=== PATIENT | female | born 1960 | race Caucasian/White ===

== ENCOUNTER 2019-11-27 08:51 | Outpatient (CLI) | payer OTHER, SELFPAY ==
--- NOTE | ~2019-11-27 | MM_ITS ---
EXAMINATION: MM screening bandar LT w karon HISTORY: Screening mammogram TECHNIQUE: Craniocaudal and mediolateral oblique 3-D tomosynthesis images were obtained and synthetic 2-D images were generated. CAD analysis was submitted and interpreted. COMPARISON: 11/14/2018, 11/08/2017 and 12/02/2015 bilateral digital screening mammogram examinations BREAST PARENCHYMAL COMPOSITION: There are scattered areas of fibroglandular density. FINDINGS: A 9 mm low-density circumscribed mass is evident anteriorly in the inner aspect of the mid to upper inner left breast. Additional masses are not excluded. Diagnostic left mammogram and left br east ultrasound examination are recommended. IMPRESSION: One or more possible left breast masses RECOMMENDATION: Diagnostic left mammogram and left breast ultrasound examination Reviewed, dictated and finalized at location A. IMPRESSION: One or more possible left breast masses RECOMMENDATION: Diagnostic left mammogram and left breast ultrasound examinati on
[2019-11-27 09:43] LABS: Basophils Percent Auto 0.8 % (0.2-1.2); Eosinophils Absolute Auto 0.5 K/mm3 (0-0.3); Eosinophils Percent Auto 9.4 % (0-4.4); Hematocrit 37.8 % (37.0-47.0); Hemoglobin 12.5 g/dL (12.0-15.0); Immature Granulocyte Absolute 0.01 K/mm3 (0.00-0.031); Immature Granulocyte Percent A 0.2 % (0-0.5); Lymphocytes Absolute Auto 1.45 K/mm3 (0.9-3.2); Lymphocytes Percent Auto 27.4 % (18.3-44.2); Mean Corpuscular HGB Conc 33.1 g/dl (32-36); Mean Corpuscular Hemoglobin 28.2 pg (26-34); Mean Corpuscular Volume 85.3 fl (80-100); Mean Platelet Volume 11.1 fl (7.4-10.4); Monocytes Absolute Auto 0.4 K/mm3 (0.1-0.6); Monocytes Percent Auto 7.4 % (2.6-8.5); Neutrophils Absolute Auto 2.9 K/mm3 (1.3-6.7); Neutrophils Percent Auto 54.8 % (45.5-73.1); Platelet Count Result 244 k/mm3 (150-375); Red Blood Count 4.43 M/mm3 (4.2-5.4); Red Cell Distribution Width 14.8 % (11.5-14.5); White Blood Count 5.3 K/mm3 (4.5-10.0)
[2019-11-27 09:55] LABS: Alanine Aminotransferase 16 U/L (4-35); Albumin Level 4.1 g/dL (3.5-5.1); Alkaline Phosphatase 103 U/L (38-126); Aspartate Amino Transferase 25 U/L (14-36); Bilirubin,Total 0.9 mg/dL (0.2-1.3); Blood Urea Nitrogen 23 mg/dL (7-17); Calcium 9.5 mg/dL (8.4-10.2); Carbon Dioxide 33 mmol/L (22-30); Chloride 104 mmol/L (98-107); Cholesterol 180 mg/dL (0-200); Estimated Glomerular Filt Rate > 60; Glucose 98 mg/dL (65-105); HDL Direct 77 mg/dL; Hemoglobin A1C 5.8 % (<5.7); Potassium 3.5 mmol/L (3.4-5.0); Sodium 138 mmol/L (137-145); Triglycerides 66 mg/dL (<150)
[2019-11-27 10:06] LABS: LDL Cholesterol Direct 75 mg/dL
[2019-11-27 10:29] LABS: Vitamin D 25 Hydroxy 29.8 ng/mL
[2019-11-29 20:45] LABS: CA 27.29 22 U/mL (<38)
== END 2019-11-27 08:52 | disposition home or self-care (01) ==
PROVIDERS: Referring Provider Internal Medicine; Visit Provider Internal Medicine Hematology & Oncology
DX: Z12.31 Encounter for screening mammogram for malignant neoplasm of breast (principal); E55.9 Vitamin D deficiency, unspecified; Z79.899 Other long term (current) drug therapy; R92.8 Other abnormal and inconclusive findings on diagnostic imaging of breast
CPT/HCPCS: 36415; 77063; 77067; 80053; 80061; 82306; 83036; 84443; 85025; 86300; 99212; G0463

== ENCOUNTER 2019-12-05 11:10 | Outpatient (CLI) | payer OTHER, SELFPAY ==
--- NOTE | ~2019-12-05 | MMUS_ITS ---
EXAMINATION: MM diagnostic mammo unilat LT, US breast LT complete HISTORY: Left breast masses seen on recent screening mammogram TECHNIQUE: Additional 3-D tomosynthesis images of the left breast were performed and synthetic 2-D im ages were generated. CAD analysis was submitted and interpreted. High resolution left breast ultrasou nd was performed. COMPARISON: 11/27/2019 FINDINGS: MAMMOGRAPHIC FINDINGS: There are multiple small masses in the periareolar location of the left breast which are partially ob scured by overlying tissue. There are benign-appearing left breast calcifications. ULTRASOUND: Left breast ultrasound: At 10:00 near the nipple there are 2 adjacent hypoechoic masses with irregular margins, the larger me asuring 5 x 5 x 4 mm with posterior acoustic attenuation. No internal vascularity. The smaller lesion measures 4.5 mm maximum dimension. There is no internal vascularity. There is posterior acoustic enh ancement. There are multiple additional mildly dilated ducts as well as simple and complicated cyst o f the left breast including an 1 cm cyst at 8:00 near the nipple. IMPRESSION: 1. Irregular shaped hypoechoic masses of the left breast at 10:00 near the nipple, largest measuring 5 mm. 2. Ultrasound-guided left breast biopsy of these masses recommended. BI-RADS category 4, suspicious findings. Reviewed, dictated and finalized at location A. IMPRESSION: 1. Irregular shaped hypoechoic masses of the left breast at 10:00 near the nipp le, largest measuring 5 mm. 2. Ultrasound-guided left breast biopsy of these masses recommended. BI-RADS category 4, suspicious findings.
== END 2019-12-05 11:11 | disposition home or self-care (01) ==
PROVIDERS: Visit Provider Internal Medicine Hematology & Oncology
DX: R92.8 Other abnormal and inconclusive findings on diagnostic imaging of breast (principal)
CPT/HCPCS: 76641; 77065

== ENCOUNTER 2020-02-19 10:14 | Outpatient (CLI) | payer OTHER, SELFPAY ==
[2020-02-19 10:58] LABS: Basophils Percent Auto 0.7 % (0.2-1.2); Eosinophils Absolute Auto 0.4 K/mm3 (0-0.3); Eosinophils Percent Auto 8.7 % (0-4.4); Hematocrit 38.8 % (37.0-47.0); Hemoglobin 12.6 g/dL (12.0-15.0); Immature Granulocyte Absolute 0.01 K/mm3 (0.00-0.031); Immature Granulocyte Percent A 0.2 % (0-0.5); Lymphocytes Absolute Auto 1.24 K/mm3 (0.9-3.2); Lymphocytes Percent Auto 28.4 % (18.3-44.2); Mean Corpuscular HGB Conc 32.5 g/dl (32-36); Mean Corpuscular Hemoglobin 28.1 pg (26-34); Mean Corpuscular Volume 86.4 fl (80-100); Mean Platelet Volume 11.1 fl (7.4-10.4); Monocytes Absolute Auto 0.4 K/mm3 (0.1-0.6); Monocytes Percent Auto 9.2 % (2.6-8.5); Neutrophils Absolute Auto 2.3 K/mm3 (1.3-6.7); Neutrophils Percent Auto 52.8 % (45.5-73.1); Platelet Count Result 242 k/mm3 (150-375); Red Blood Count 4.49 M/mm3 (4.2-5.4); Red Cell Distribution Width 15.1 % (11.5-14.5); White Blood Count 4.4 K/mm3 (4.5-10.0)
[2020-02-19 11:11] LABS: Alanine Aminotransferase 19 U/L (4-35); Albumin Level 3.8 g/dL (3.5-5.1); Alkaline Phosphatase 117 U/L (38-126); Anion Gap 3 mmol/L (8-16); Aspartate Amino Transferase 24 U/L (14-36); Bilirubin,Total 0.7 mg/dL (0.2-1.3); Blood Urea Nitrogen 22 mg/dL (7-17); Calcium 9.2 mg/dL (8.4-10.2); Carbon Dioxide 32 mmol/L (22-30); Chloride 104 mmol/L (98-107); Estimated Glomerular Filt Rate > 60; Glucose 88 mg/dL (65-105); Potassium 3.5 mmol/L (3.4-5.0); Sodium 139 mmol/L (137-145)
[2020-02-23 06:09] LABS: CA 27.29 18 U/mL (<38)
== END 2020-02-19 10:15 | disposition home or self-care (01) ==
PROVIDERS: Visit Provider Internal Medicine Hematology & Oncology
DX: C50.411 Malignant neoplasm of upper-outer quadrant of right female breast (principal); Z17.0 Estrogen receptor positive status [ER+]
CPT/HCPCS: 36415; 80053; 85025; 86300; 99212; G0463

== ENCOUNTER 2020-03-22 10:42 | Outpatient (CLI) | payer OTHER, SELFPAY ==
--- NOTE | ~2020-03-22 | XR_ITS ---
XR lumbar spine 2-3V 03/22/2020 11:16 Indication: Low back pain and radiculopathy Procedure: 3 views lumbar spine Comparison: No prior studies for comparison. Findings: There is advanced disc narrowing at L1-2, L2-3 and L3-4. There is dextroscoliosis of the georgie mbar spine. No evidence for acute fracture or traumatic malalignment. No evidence for spondylolisthes is. There are cholecystectomy clips. Sacral foramen are symmetric. There is mild multilevel facet hyp ertrophy. Impression: 1: Moderate lumbar spondylosis with dextroscoliosis. Reviewed, dictated and finalized at location A. Impression: 1: Moderate lumbar spondylosis with dextroscoliosis.
--- NOTE | ~2020-03-22 | XR_ITS ---
XR hip BI wo pelvis 03/22/2020 11:16 Indication: Bilateral hip and low back pain Procedure: 2 views of each hip Comparison: No prior studies for comparison. Findings: There is mild bilateral osteoarthritis of the hips. No acute fracture or traumatic malalign ment. No focal soft tissue abnormality. Pelvic structures are unremarkable. Impression: 1: Mild osteoarthritis of the hips. Reviewed, dictated and finalized at location A. Impression: 1: Mild osteoarthritis of the hips.
--- NOTE | ~2020-03-22 | US_ITS ---
US soft tissue head and neck 03/22/2020 11:31 Indication: Left supraclavicular fullness and swelling. History of right breast cancer. Procedure: High-resolution ultrasound of the left supraclavicular soft tissues Comparison: No prior studies for comparison. Findings: Within the area of swelling there is a small 6 mm normal-appearing lymph node. No suspiciou s masses or fluid collections. Impression: 1: Normal-appearing 6 mm lymph node in the area of left supraclavicular swelling, likely reactive. Ot herwise, unremarkable soft tissue ultrasound. Reviewed, dictated and finalized at location A. Impression: 1: Normal-appearing 6 mm lymph node in the area of left supraclavicular swellin g, likely reactive. Otherwise, unremarkable soft tissue ultrasound.
== END 2020-03-22 10:43 | disposition home or self-care (01) ==
PROVIDERS: Visit Provider Nurse Practitioner Adult Health
DX: M16.0 Bilateral primary osteoarthritis of hip (principal); R59.0 Localized enlarged lymph nodes; M47.26 Other spondylosis with radiculopathy, lumbar region; M41.86 Other forms of scoliosis, lumbar region; G89.4 Chronic pain syndrome; Z85.3 Personal history of malignant neoplasm of breast
CPT/HCPCS: 72100; 73521; 76536

== ENCOUNTER 2020-04-08 11:12 | Outpatient (CLI) | payer OTHER, SELFPAY ==
[2020-04-08 11:55] LABS: Hemoglobin A1C 5.6 % (<5.7)
[2020-04-08 12:00] LABS: Alanine Aminotransferase 18 U/L (4-35); Albumin Level 3.8 g/dL (3.5-5.1); Alkaline Phosphatase 94 U/L (38-126); Anion Gap 3 mmol/L (8-16); Aspartate Amino Transferase 25 U/L (14-36); Bilirubin,Total 1.3 mg/dL (0.2-1.3); Blood Urea Nitrogen 21 mg/dL (7-17); Calcium 9.8 mg/dL (8.4-10.2); Carbon Dioxide 34 mmol/L (22-30); Chloride 104 mmol/L (98-107); Cholesterol 179 mg/dL (0-200); Estimated Glomerular Filt Rate > 60; Glucose 94 mg/dL (65-105); HDL Direct 72 mg/dL; Potassium 3.7 mmol/L (3.4-5.0); Sodium 141 mmol/L (137-145); Triglycerides 97 mg/dL (<150)
[2020-04-08 12:11] LABS: LDL Cholesterol Direct 81 mg/dL
[2020-04-11 12:19] LABS: Homocysteine 5.8 umol/L (<10.4)
[2020-04-11 23:03] LABS: Vitamin D 1,25 (OH)2 Total 32 pg/mL (18-72); Vitamin D2 1,25 (OH)2 <8 pg/mL; Vitamin D3 1,25 (OH)2 32 pg/mL
== END 2020-04-08 11:13 | disposition home or self-care (01) ==
LOC: ANHLAB 11:14 → ANHVASCINF 11:20
PROVIDERS: Visit Provider Internal Medicine
DX: R73.09 Other abnormal glucose (principal); R79.89 Other specified abnormal findings of blood chemistry; E55.9 Vitamin D deficiency, unspecified; I10 Essential (primary) hypertension; Z79.899 Other long term (current) drug therapy
CPT/HCPCS: 36415; 80053; 80061; 82652; 83036; 83090; 99212; G0463

== ENCOUNTER 2020-04-29 14:25 | Outpatient (CLI) | payer OTHER, SELFPAY ==
--- NOTE | ~2020-04-29 | DEXA_ITS ---
Bone Density Report Name: Sonya Canseco Age: 59 Sex: Female Ethnicity: White Date of : 1960 Indication: postmenopausal; height loss; prior fracture; cancer; hysterectomy; Referring Provider: Shanda Torres Study: Bone densitometry was performed. Exam Date: April 29, 2020 Accession number: [id number] Bone Density: Region BMD T-score Z-score Classification AP Spine (L1, L4) 1.122 0.8 2.0 Normal Femoral Neck (Left) 0.783 -0.6 0.6 Normal Total Hip (Left) 0.974 0.3 1.1 Normal Total Hip Bilateral Avg 0.939 0.0 0.8 Normal Femoral Neck (Right) 0.755 -0.8 0.3 Normal Total Hip (Right) 0.903 -0.3 0.5 Normal World Health Organization criteria for BMD impression classify patients as: Normal (T-score at or above -1.0), Osteopenia (T-score between -1.0 and -2.5), or Osteoporosis (T-score at or below -2.5). 10-year Fracture Risk: FRAX not reported because: All T-scores for Spine Total, Hip Total, Femoral Neck at or above -1.0 Previous Exams: Region Exam Age BMD T-score BMD Change BMD Change Date g/cm2 vs Baseline vs Previous Total Hip(Left) 04/29/2020 59 0.974 0.3 -0.027(-2.7%)* -0.027(-2.7%)* 02/07/2018 57 1.001 0.5 Total Hip(Right) 04/29/2020 59 0.903 -0.3 -0.053(-5.6%)* -0.053(-5.6%)* 02/07/2018 57 0.957 0.1 *Denotes significance at 95% confidence level, LSC for Total Hip = 0.027 g/cm2 Clinical Information Provided by Patient: Has had a low trauma fracture Has used the following medications: Vitamin D, Calcium Has the following medical conditions: Cancer, Hysterectomy Patient maximum height was 63.5 Menopause Age: 43 No regular weight bearing exercise Does not regularly consume dairy products Drinks caffeinated beverages Onset of menses at age 13 Number of children 2 Impression: The patient has normal bone mass. The patient has risk factors, including: previous fracture. The BMD for the Total Hip(Left) decreased, changing by -2.7% since the last DXA exam. The BMD for the Total Hip(Right) decreased, changing by -5.6% since the last DXA exam. Discussion: BONE DENSITY IS ABOVE THE MINIMUM DESIRABLE LEVEL AT ALL SKELETAL SITES TESTED. This patient?s bone mineral density is above the minimum desirable level (T-score -1.0 or better) at all sites measured. The patient should follow a healthful lifestyle (good nutrition with adequate calcium and vitamin D, and appropriate weight-bearing exercise). Follow-Up: Consider repeating this study in 3 to 4 years to reassess this pa
== END 2020-04-29 14:26 | disposition home or self-care (01) ==
PROVIDERS: Visit Provider Nurse Practitioner Adult Health
DX: Z78.0 Asymptomatic menopausal state (principal); Z79.811 Long term (current) use of aromatase inhibitors
CPT/HCPCS: 77080

== ENCOUNTER 2020-06-03 10:40 | Outpatient (CLI) | payer OTHER, SELFPAY ==
[2020-06-03 11:11] LABS: Basophils Percent Auto 0.9 % (0.2-1.2); Eosinophils Absolute Auto 0.2 K/mm3 (0-0.3); Eosinophils Percent Auto 5.4 % (0-4.4); Hematocrit 40.3 % (37.0-47.0); Immature Granulocyte Absolute 0.01 K/mm3 (0.00-0.031); Immature Granulocyte Percent A 0.2 % (0-0.5); Lymphocytes Absolute Auto 1.14 K/mm3 (0.9-3.2); Lymphocytes Percent Auto 25.8 % (18.3-44.2); Mean Corpuscular HGB Conc 32.3 g/dl (32-36); Mean Corpuscular Volume 86.9 fl (80-100); Mean Platelet Volume 10.4 fl (7.4-10.4); Monocytes Absolute Auto 0.3 K/mm3 (0.1-0.6); Monocytes Percent Auto 7.7 % (2.6-8.5); Neutrophils Absolute Auto 2.7 K/mm3 (1.3-6.7); Platelet Count Result 250 k/mm3 (150-375); Red Blood Count 4.64 M/mm3 (4.2-5.4); Red Cell Distribution Width 14.6 % (11.5-14.5); White Blood Count 4.4 K/mm3 (4.5-10.0)
[2020-06-03 11:25] LABS: Alanine Aminotransferase 18 U/L (4-35); Albumin Level 3.8 g/dL (3.5-5.1); Alkaline Phosphatase 106 U/L (38-126); Anion Gap 3 mmol/L (8-16); Aspartate Amino Transferase 26 U/L (14-36); Blood Urea Nitrogen 22 mg/dL (7-17); Calcium 9.9 mg/dL (8.4-10.2); Carbon Dioxide 34 mmol/L (22-30); Chloride 102 mmol/L (98-107); Estimated Glomerular Filt Rate > 60; Glucose 91 mg/dL (65-105); Potassium 3.6 mmol/L (3.4-5.0); Sodium 139 mmol/L (137-145)
[2020-06-08 06:47] LABS: CA 27.29 23 U/mL (<38)
== END 2020-06-03 10:41 | disposition home or self-care (01) ==
PROVIDERS: Referring Provider Internal Medicine Hematology & Oncology; Visit Provider Nurse Practitioner Adult Health
DX: C50.411 Malignant neoplasm of upper-outer quadrant of right female breast (principal); Z17.0 Estrogen receptor positive status [ER+]
CPT/HCPCS: 36415; 80053; 85025; 86300; 99212; G0463

== ENCOUNTER 2020-08-19 10:47 | Outpatient (CLI) | payer OTHER, SELFPAY ==
[2020-08-19 11:20] LABS: Basophils Absolute Auto 0.1 K/mm3 (0.0-0.1); Basophils Percent Auto 1.1 % (0.2-1.2); Eosinophils Absolute Auto 0.3 K/mm3 (0-0.3); Hematocrit 39.8 % (37.0-47.0); Hemoglobin 12.6 g/dL (12.0-15.0); Immature Granulocyte Absolute 0.02 K/mm3 (0.00-0.031); Immature Granulocyte Percent A 0.4 % (0-0.5); Lymphocytes Absolute Auto 1.36 K/mm3 (0.9-3.2); Lymphocytes Percent Auto 24.8 % (18.3-44.2); Mean Corpuscular HGB Conc 31.7 g/dl (32-36); Mean Corpuscular Hemoglobin 27.1 pg (26-34); Mean Corpuscular Volume 85.6 fl (80-100); Mean Platelet Volume 10.9 fl (7.4-10.4); Monocytes Absolute Auto 0.4 K/mm3 (0.1-0.6); Neutrophils Absolute Auto 3.3 K/mm3 (1.3-6.7); Neutrophils Percent Auto 59.7 % (45.5-73.1); Platelet Count Result 280 k/mm3 (150-375); Red Blood Count 4.65 M/mm3 (4.2-5.4); Red Cell Distribution Width 14.9 % (11.5-14.5); White Blood Count 5.5 K/mm3 (4.5-10.0)
[2020-08-19 11:33] LABS: Alanine Aminotransferase 17 U/L (4-35); Albumin Level 3.9 g/dL (3.5-5.1); Alkaline Phosphatase 111 U/L (38-126); Anion Gap 1 mmol/L (8-16); Aspartate Amino Transferase 23 U/L (14-36); Bilirubin,Total 0.9 mg/dL (0.2-1.3); Blood Urea Nitrogen 28 mg/dL (7-17); Calcium 9.5 mg/dL (8.4-10.2); Carbon Dioxide 35 mmol/L (22-30); Chloride 104 mmol/L (98-107); Cholesterol 184 mg/dL (0-200); Estimated Glomerular Filt Rate > 60; Glucose 74 mg/dL (65-105); HDL Direct 85 mg/dL; Potassium 3.5 mmol/L (3.4-5.0); Sodium 140 mmol/L (137-145); Triglycerides 74 mg/dL (<150)
[2020-08-19 11:42] LABS: Hemoglobin A1C 5.6 % (<5.7)
[2020-08-19 11:44] LABS: LDL Cholesterol Direct 70 mg/dL
== END 2020-08-19 10:48 | disposition home or self-care (01) ==
PROVIDERS: Visit Provider Internal Medicine
DX: E78.5 Hyperlipidemia, unspecified (principal); I10 Essential (primary) hypertension; R73.09 Other abnormal glucose; Z51.81 Encounter for therapeutic drug level monitoring; Z79.899 Other long term (current) drug therapy
CPT/HCPCS: 36415; 80053; 80061; 83036; 84443; 85025; 99212; G0463

== ENCOUNTER 2020-12-02 10:42 | Outpatient (CLI) | payer OTHER, SELFPAY ==
--- NOTE | ~2020-12-02 | MM_ITS ---
EXAMINATION: MM screening bandar LT w karon HISTORY: Screening mammogram; status post right mastectomy in 1999 TECHNIQUE: Craniocaudal and mediolateral oblique 3-D tomosynthesis images were obtained and synthetic 2-D images were generated. CAD analysis was submitted and interpreted. COMPARISON: 12/05/2019 left diagnostic mammogram and complete left breast ultrasound examination 11/27/2019, 11/14/2018, 11/08/2017, 12/02/2015 left digital mammogram examinations left digital screening m ammogram BREAST PARENCHYMAL COMPOSITION: There are scattered areas of fibroglandular density. FINDINGS: There is a biopsy marker on the left; history of benign left breast biopsy in 2019. There is an approximately 7 mm opacity in the upper mid left breast (CC Tomosynthesis image 46/76; ML O Tomosynthesis image 46/79). Diagnostic left mammogram and left breast ultrasound examination are re commended. IMPRESSION: 1. 7 mm upper central left breast 2. Diagnostic left mammogram and left breast ultrasound examination are recommended BI-RADS Category 0: Incomplete: Needs additional imaging evaluation. Reviewed, dictated and finalized at location A. IMPRESSION: 1. 7 mm upper central left breast 2. Diagnostic left mammogram and left breast ultrasound examination are recomme nded BI-RADS Category 0: Incomplete: Needs additional imaging evaluation.
== END 2020-12-02 10:43 | disposition home or self-care (01) ==
PROVIDERS: PCP Internal Medicine; Visit Provider Internal Medicine Hematology & Oncology
DX: Z12.31 Encounter for screening mammogram for malignant neoplasm of breast (principal); R92.8 Other abnormal and inconclusive findings on diagnostic imaging of breast
CPT/HCPCS: 77063; 77067

== ENCOUNTER 2020-12-09 10:58 | Outpatient (CLI) | payer OTHER, SELFPAY ==
[2020-12-09 12:05] LABS: Basophils Absolute Auto 0.1 K/mm3 (0.0-0.1); Basophils Percent Auto 1.1 % (0.2-1.2); Eosinophils Absolute Auto 0.3 K/mm3 (0-0.3); Eosinophils Percent Auto 5.1 % (0-4.4); Hematocrit 39.4 % (37.0-47.0); Hemoglobin 12.6 g/dL (12.0-15.0); Immature Granulocyte Absolute 0.02 K/mm3 (0.00-0.031); Immature Granulocyte Percent A 0.4 % (0-0.5); Lymphocytes Absolute Auto 1.41 K/mm3 (0.9-3.2); Lymphocytes Percent Auto 24.7 % (18.3-44.2); Mean Corpuscular Hemoglobin 27.8 pg (26-34); Monocytes Absolute Auto 0.4 K/mm3 (0.1-0.6); Monocytes Percent Auto 7.5 % (2.6-8.5); Neutrophils Absolute Auto 3.5 K/mm3 (1.3-6.7); Neutrophils Percent Auto 61.2 % (45.5-73.1); Platelet Count Result 265 k/mm3 (150-375); Red Blood Count 4.53 M/mm3 (4.2-5.4); Red Cell Distribution Width 15.1 % (11.5-14.5); White Blood Count 5.7 K/mm3 (4.5-10.0)
[2020-12-09 12:20] LABS: Cholesterol 208 mg/dL (0-200); HDL Direct 82 mg/dL; Triglycerides 69 mg/dL (<150)
[2020-12-09 12:21] LABS: Alanine Aminotransferase 17 U/L (4-35); Alkaline Phosphatase 92 U/L (38-126); Anion Gap 5 mmol/L (8-16); Aspartate Amino Transferase 25 U/L (14-36); Bilirubin,Total 0.8 mg/dL (0.2-1.3); Blood Urea Nitrogen 25 mg/dL (7-17); Calcium 9.9 mg/dL (8.4-10.2); Carbon Dioxide 32 mmol/L (22-30); Chloride 104 mmol/L (98-107); Estimated Glomerular Filt Rate > 60; Glucose 88 mg/dL (65-105); Potassium 3.6 mmol/L (3.4-5.0); Sodium 141 mmol/L (137-145)
[2020-12-09 12:22] LABS: Hemoglobin A1C 5.7 % (<5.7)
[2020-12-09 12:31] LABS: LDL Cholesterol Direct 72 mg/dL
[2020-12-11 13:09] LABS: CA 15-3 15 U/mL (<32)
[2020-12-12 09:32] LABS: Vitamin D 1,25 (OH)2 Total 46 pg/mL (18-72); Vitamin D2 1,25 (OH)2 <8 pg/mL; Vitamin D3 1,25 (OH)2 46 pg/mL
== END 2020-12-09 10:59 | disposition home or self-care (01) ==
PROVIDERS: PCP Internal Medicine; Referring Provider Internal Medicine Hematology & Oncology; Visit Provider Internal Medicine
DX: C50.411 Malignant neoplasm of upper-outer quadrant of right female breast (principal); R73.03 Prediabetes; E78.5 Hyperlipidemia, unspecified; E55.9 Vitamin D deficiency, unspecified; Z17.0 Estrogen receptor positive status [ER+]
CPT/HCPCS: 36415; 80053; 80061; 82652; 83036; 85025; 86300; 99211; G0463

== ENCOUNTER 2020-12-10 09:26 | Outpatient (CLI) | payer OTHER, SELFPAY ==
--- NOTE | ~2020-12-10 | MMUS_ITS ---
EXAMINATION: MM diagnostic mammo unilat LT, US breast LT limited HISTORY: Follow-up left breast mass TECHNIQUE: Additional 3-D tomosynthesis images of the left breast were performed and synthetic 2-D im ages were generated. CAD analysis was submitted and interpreted. High resolution Limited left breast ultrasound was performed. COMPARISON: 12/02/2020 BREAST PARENCHYMAL COMPOSITION: Breast composed of scattered areas of fibroglandular density. FINDINGS: MAMMOGRAPHIC FINDINGS: There is an 8 mm mass in the periareolar location of the left breast with circumscribed margins. Ther e are scattered benign-appearing left breast calcifications. ULTRASOUND: Limited left breast ultrasound: At 6:00 near the nipple there is a 9 mm simple cyst corresponding to the mammographic abnormality. No suspicious masses to suggest malignancy. IMPRESSION: 1. No evidence for malignancy in the left breast. Benign findings. 2. Routine yearly screening mammogram and regular clinical breast examination are recommended. BI-RADS Category 2: Benign finding(s). Reviewed, dictated and finalized at location A. IMPRESSION: 1. No evidence for malignancy in the left breast. Benign findings. 2. Routine yearly screening mammogram and regular clinical breast examination a re recommended. BI-RADS Category 2: Benign finding(s).
== END 2020-12-10 09:27 | disposition home or self-care (01) ==
LOC: ANHIMG 09:28
PROVIDERS: PCP Internal Medicine; Visit Provider Internal Medicine Hematology & Oncology
DX: N60.02 Solitary cyst of left breast (principal)
CPT/HCPCS: 76642; 77065

== ENCOUNTER 2021-02-02 14:40 | Outpatient (CLI) | payer OTHER, SELFPAY ==
--- NOTE | 2021-02-02 15:03 | ECG_ITS ---
Measurements Intervals [place] Rate: 76 P: 64 NC: 155 QRS: 7 QRSD: 93 T: 8 QT: 359 QTc: 404 Interpretive Statements SINUS RHYTHM DELAYED PRECORDIAL R/S TRANSITION BORDERLINE ST-T WAVE ABNORMALITY- ANT/INF LEADS BASELINE ARTIFACT- I, II, III, AVR, AVL, AVF BORDERLINE ECG Electronically Signed On 02-02-2021 15:25:16 CDT by Chau Johnson D.O.
== END 2021-02-02 14:41 | disposition home or self-care (01) ==
PROVIDERS: PCP Internal Medicine; Visit Provider Orthopaedic Surgery
DX: E78.5 Hyperlipidemia, unspecified (principal); Z01.818 Encounter for other preprocedural examination; R94.31 Abnormal electrocardiogram [ECG] [EKG]
CPT/HCPCS: 93005

== ENCOUNTER 2021-02-05 01:10 | Day surgery (SDC) | payer OTHER, SELFPAY ==
[2021-02-02 11:28] VITALS: BMI 33.0
--- NOTE | 2021-02-04 10:24 | WPDANESEPPF ---
Anes - Initial Pre Proc Eval Procedure: Operation Date: 02/05/21 09:00 Proposed Procedures s Left Triple Arthrodesis, - Ayan Meadows MD p Achilles Lengthening, Iliac Crest Bone Marrow Aspirate - Ayan Meadows MD Date/Time: 02/04/21 10:24 Surgeon: Ayan Meadows MD Pre Op Diagnosis: left foot arthritis, left planus deformity Patient Data Age: 60 Gender: F Height: 1.55 m Weight: 79.4 kg Allergies Allergy/AdvReac Type Severity Reaction Status Date / Time Sulfa (Sulfonamide Allergy Severe Ulcers Verified 02/02/21 10:42 Antibiotics) lisinopril Allergy Intermediate Itching Verified 02/02/21 10:42 morphine AdvReac Mild Itching Verified 02/05/21 07:35 Home Medications Medication Instructions Recorded Confirmed Type anastrozole 1 mg tablet 1 mg PO DAILY 07/24/19 02/02/21 History aspirin 325 mg tablet 325 mg PO DAILY 08/26/20 02/02/21 History pwrafqh-hmpinghdh-ctpg 333 mg-133 3 tablet PO DAILY 08/26/20 02/02/21 History mg-5 mg tablet cholecalciferol (vitamin D3) 50 50 mcg PO DAILY 08/26/20 02/02/21 History mcg (2,000 unit) capsule folic acid 800 mcg tablet 0.8 mg PO DAILY 08/26/20 02/02/21 History mecobalamin (vitamin B12) 5,000 5,000 mcg PO DAILY 08/26/20 02/02/21 History mcg disintegrating tablet pantoprazole 40 mg tablet,delayed 40 mg PO QAM #90 tablet 11/13/20 02/02/21 Rx release acetaminophen 300 mg-codeine 60 mg 1 tablet PO HS tablet 12/16/20 02/02/21 History tablet ibuprofen 800 mg tablet 800 mg PO BID tablet 12/16/20 02/02/21 History pregabalin 75 mg capsule 75 mg PO BID cap 12/16/20 02/02/21 History colesevelam 625 mg tablet 1,875 mg PO BID #540 tablet 12/25/20 02/02/21 Rx scopolamine base 1 mg over 3 days 1 patch TRANSDERMAL Q3D PRN #4 ea 01/26/21 02/02/21 Rx transdermal patch Allergy Relief (loratadine) 10 mg PO DAILY 02/02/21 02/02/21 History aspirin 81 mg PO DAILY 02/02/21 02/02/21 History cyclobenzaprine 10 mg PO BID PRN 02/02/21 02/02/21 History fluticasone propionate 2 spray INTRANASAL DAILY 02/02/21 02/02/21 History hydrochlorothiazide 12.5 mg PO DAILY 02/02/21 02/02/21 History losartan 25 mg PO DAILY 02/02/21 02/02/21 History pseudoephedrine HCl [Sudafed] 30 mg PO Q4-6H PRN 02/02/21 02/02/21 History Patient hx anesthesia problems: post op nausea/vomiting Family hx anesthesia problems: none PMFSH Past Medical History Medical History Adverse effect of anesthesia nausea Arthritis Arthritis of foot, left, degenerative Benign essential hypertension Blockage of subclavian artery BMI 35.0-35.9,adult BMI 36.0-36.9,adult Breast cancer Chronic low back pain Chronic pain in left foot Colon cancer screening Elevated hemoglobin A1c Elevated homocysteine Encounter for routine adult health examination without abnormal findings Factor V Leiden Flat foot [pes planus] (acquired), right foot (02/06/16) Foot pain, right Hyperlipidemia Hypertension Lumbar radiculopathy, right Painful orthopaedic hardware Pre-diabetes Primary osteoarthritis of right foot Right ankle joint deformity RLS (restless legs syndrome) Surgical History Surgical History History of hysterectomy, supracervical History of mastectomy History of microdiscectomy Hx of cholecystectomy Previous section x 2 Family History Family History Father Family history of pancreatic cancer Mother Diabetes mellitus Hypertension Grandparent Cerebrovascular accident Carcinoma of colon Other Arthritis Depression Family history of arthritis Family history of cardiovascular disease Family history of malignant neoplasm High cholesterol Social History Social History Smoking status: Never smoker Alcohol intake: never Substance use: never Substance use type: does
--- NOTE | 2021-02-04 10:24 | WPDANESPNB ---
Anes - Peripheral Nerve Block Date/Time: 02/04/21 10:24 I have discussed with the patient/family/POA the placement of a peripheral nerve block for post-operative pain management, including associated risks, benefits, complications, and side effects. Alternative methods of post-operative analgesia were detailed. Questions were solicited and answers provided to the satisfaction of the patient/family/POA. Time-Out: A pre-procedural Time-Out was completed immediately before starting the procedure and confirmed: Patient Identification, Site, Procedure, Patient Position and the Availability of Requisite Equipment. Clinical Indications: Acute post-operative pain management requested by the operative surgeon. Nerve Block Insertion Note Anes-nerve block: posterior fossa sciatic left and adductor canal left Patient position: supine Skin prep: chlorhexidine Needle: 22 gauge, stimulating, insulated echogenic needle. Needle length: 80 mm Technique: nerve stimulation lost at (mA) (0.3) and ultrasound Technique comment: nerve stim used for popliteal Injectate: bupivacaine 0.5% with epi 5 mcg/ml (20ml for popliteal/10 ml used for adductor canal) Observations: tolerated well Complications: none Procedure start time:: 848 Procedure end time:: 853
[2021-02-05] VITALS (13 sets, daily range): BP systolic 96–140; BP diastolic 47–75; PULSE 55–80; RESP 8–20; TEMP 36.4–36.6; O2SAT 92–100
--- NOTE | ~2021-02-05 | XR_ITS ---
EXAMINATION: XR surgery orthopedic EXAM DATE: 02/05/2021 12:18 INDICATION: Left ankle arthrodesis. TECHNIQUE: Fluoroscopy used during left lower extremity surgery performed by Azalia Fortune. Radiologist was not present for the imaging or procedure. Total fluoroscopic time of 62 seconds. The DAP for this procedure was 0.04, mGym2. A total of 3 images sent to PACS plus the dose report from the exam. FINDINGS: There are 2 screws bridging the subtalar joint. Additional arthrodesis hardware at the benigno caneal cuboid and talonavicular joints. Surgical soft tissue defect. There is a frontal projection of the ankle demonstrating some wires over the tibial and fibular distal diaphyses, and evidence of an old fibular fracture. Correlate with procedure note. IMPRESSION: Fluoroscopy used during left hindfoot arthrodesis. Reviewed, dictated and finalized at location B.
--- NOTE | 2021-02-05 06:55 | WPDHPUPDATE1 ---
History and Physical Update Update Date/Time: 02/05/21 06:55 History and Physical has been reviewed, including an updated exam of the patient. There are NO changes in the patient's condition. Risks, benefits, and alternatives have been discussed and questions answered. Patient agrees to proceed with procedure.
[2021-02-05] MEDS: LACTATED RINGERS 1,000 ML 30 ML IV CONT ×2 (07:45→13:00)
[2021-02-05] MEDS: ACETAMINOPHEN 500 MG TABLET 1000 MG PO (07:48)
[2021-02-05] MEDS: KETOROLAC 15 MG/ML VIAL (*BKC) IV PUSH (07:49)
[2021-02-05] MEDS: FAMOTIDINE 20 MG/2 ML VIAL IV PUSH (08:40)
[2021-02-05] MEDS: ceFAZolin 2 GM/D5W 50 ML 2 GM/50 ML BAG IVPB (10:05)
[2021-02-05] MEDS: BUPIVACAINE/EPINEPHRINE 0.5% 30 ML VIAL 20 ML INFILTRATE (10:13)
--- NOTE | 2021-02-05 13:18 | W.PM.PROC2 ---
Procedure Note - Detailed Date of Procedure 02/05/21 Pre-op Diagnosis left foot arthritis, left planus deformity Post-op Diagnosis same Procedure Performed Left foot triple arthrodesis, Achilles tendon lengthening, peroneal tendon tenodesis. Surgeon Ayan Meadows MD [employer] clinical assistant professor Anesthesia general Indications 60-year-old woman with severe bilateral pes planovalgus deformity. Has failed conservative treatment with custom inserts and ankle bracing. Has severe deformity on the left side which is causing skin breakdown over the talar head and medial aspect. She presents now for operative treatment. Description of Procedure What was done: Patient identified in the preoperative holding. Informed consent given. Operative extremity marked. Patient received intravenous antibiotics. Patient brought to the operating room where underwent general anesthetic by anesthesia team. Positioned supine on operating room table. Time-out performed confirming the patient, site of the surgery and the plan. A bump placed under the left hip. Left lower extremity then prepped draped usual sterile surgical fashion using a ChloraPrep skin solution. left iliac crest prepped and draped usual sterile surgical fashion using ChloraPrep skin solution. Bone graft obtained 1st. Fifteen blade knife used to make an incision over the anterior portion of the iliac crest. This was 2 cm posterior to the anterior superior iliac spine. Blunt dissection carried down to the iliac crest. Bone graft dowel trocar used to remove 3 dowels from the iliac crest. 45 cc of bone marrow aspirate then obtained. No further bone marrow able to be obtained from the iliac crest. 5 cc more needed for centrifugation. Longitudinal incision then made over the anterior tibia and blunt dissection carried down to the anterior tibial crest of the left leg. Bone marrow aspirate needle placed into the intramedullary canal and 5 more cc aspirated. Both wounds thoroughly irrigated closed with 3 Monocryl interrupted subcuticular stitch and Steri-Strips for the skin. The bone marrow aspirate was then centrifuged on the back table and later used for graft. Foot and ankle exsanguinated and a thigh tourniquet inflated to 250 mmHg. Oblique incision made from the tip of the fibula to the base of the 4th metatarsal with a 15 blade knife. Hemostasis controlled electrocautery. Capsulotomy was performed over the sinus tarsi and the calcaneocuboid joint with a 15 blade knife. Joints were then prepared using osteotomes, curettes and rongeur to remove the cartilage and subchondral bone surface as well as feather the arthrodesis site. The subtalar joint was then reduced and pinned and checked with image intensification. Fixation was achieved with 7.0 mm cannulated screw placed percutaneously from the heel And 5.0 mm cannulated screw. Good reduction and compression were noted. Platelet rich plasma which had been removed from the patient's BMA and prepared on the back table with the demineralized bone matrix and packed into the subtalar joint prior to fixation. Calcaneocuboid joint was approached in a similar fashion. The graft with demineralized bone matrix was placed into the arthrodesis site. This was reduced and provisionally pinned and checked with image intensification. Fixation achieved with a Nitinol staple. Wound thoroughly irrigated antibiotic solution, fascia repaired with 0 Vicryl interrupted suture. Subcutaneous tissue repaired with 2 O Vicryl suture, subcutaneous tissue repaired with 3 0 Monocryl interrupted suture and skin 3O nylon running suture. Stab incisions closed with 3 O Monocryl and 3 O nylon.. Oblique incision made from the medial malleolus to the navicular and then with a 15 blade knife. Hemostasis controlled electrocautery. Fascia incised in line with skin incision. Talonavicular joint capsule was then incised in line with skin incision and elevated dorsally and plantarward.
== END 2021-02-05 16:20 | disposition home or self-care (01) ==
PROVIDERS: PCP Internal Medicine; Visit Provider Orthopaedic Surgery
PROC: (CPT 28715; principal; 2021-02-05 09:00)
PROC: (CPT 27650; 2021-02-05 09:00)
DX: M19.072 Primary osteoarthritis, left ankle and foot (principal); M21.42 Flat foot [pes planus] (acquired), left foot; G89.18 Other acute postprocedural pain; I10 Essential (primary) hypertension; D68.51 Activated protein C resistance; E78.5 Hyperlipidemia, unspecified; R73.03 Prediabetes; G25.81 Restless legs syndrome; E66.9 Obesity, unspecified; Z68.33 Body mass index [BMI] 33.0-33.9, adult; Z79.82 Long term (current) use of aspirin
CPT/HCPCS: 28715; 27606; 27691; 64445; 64447; 93005; A9270; J0690; J1885; J2250; J3010; J7120

== ENCOUNTER → 2021-04-07 09:17 | Outpatient (CLI) | payer OTHER, SELFPAY ==
--- NOTE | ~2021-04-07 | CT_ITS ---
EXAMINATION: CT foot LT wo con DATE: 04/07/2021 09:35 INDICATION: Pseudoarthrosis after fusion arthrodesis at the left hindfoot TECHNIQUE: High resolution computed tomography (CT) of the left foot and ankle was performed without intravenous contrast. Additional sagittal and coronal reconstructions were performed. Automated expos ure control and iterative reconstruction technique were employed. The dose-length product was 188.26 mGy-cm. COMPARISON: 04/01/2021 FINDINGS: Old healed distal left fibular fracture which is in near-anatomic alignment with residual old fixatio n instrumentation tracks. Postoperative change of a left hindfoot arthrodesis with a pair of cannulat ed screws spanning the subtalar joint, a cannulated lag screw and medial sided staple spanning the ta lonavicular joint and lateral sided staple spanning the calcaneocuboid joint. There is solid osseous fusion across a significant portion of the posterior facet of the subtalar joint. There are a few sma ll spot relative early fusion across the calcaneocuboid joint. The talonavicular joint appears to rem ain unfused with corticated margins suggesting nonunion. No instrumentation failure or surrounding georgie cency to suggest loosening or infection. No acute fracture. Polyarticular osteoarthritis, mild to moderate severity at the ankle joint and mild at the remaining unfused joints the midfoot as well as the majority of the joints in the forefoot. Diffuse osteopenia. Prominent thickening and heterogeneous decreased signal of the Achilles tendon consistent with signi ficant tendinosis. Increased soft tissue density surrounding the medial lateral sides of the ankle li isma scarring related to prior trauma or surgery. No left ankle joint effusion. IMPRESSION: 1. Attempted instrumented left hindfoot arthrodesis with extensive solid fusion across the subtalar j oint, small regions of early osseous fusion across the calcaneocuboid joint but without evident osseo us bridging with suggestion of progression to nonunion across the talonavicular joint. 2. Prominent Achilles tendinosis. CT assessment is nondiagnostic for of partial tears. Reviewed, dictated and finalized at location A. IMPRESSION: 1. Attempted instrumented left hindfoot arthrodesis with extensive solid fusion across the subtalar joint, small regions of early osseous fusion across the ca lcaneocuboid joint but without evident osseous bridging with suggestion of prog ression to nonunion across the talonavicular joint. 2. Prominent Achilles tendinosis. CT assessment is nondiagnostic for of partial tears.
== END ==
PROVIDERS: Visit Provider Orthopaedic Surgery
DX: M96.0 Pseudarthrosis after fusion or arthrodesis (principal)
CPT/HCPCS: 73700

== ENCOUNTER 2021-04-27 10:48 | Outpatient (CLI) | payer OTHER, SELFPAY ==
[2021-04-27 11:44] LABS: Hemoglobin A1C 5.8 % (<5.7)
[2021-04-27 11:51] LABS: Alanine Aminotransferase 19 U/L (4-35); Albumin Level 4.3 g/dL (3.5-5.1); Alkaline Phosphatase 111 U/L (38-126); Anion Gap 2 mmol/L (8-16); Aspartate Amino Transferase 24 U/L (14-36); Bilirubin,Total 0.6 mg/dL (0.2-1.3); Blood Urea Nitrogen 23 mg/dL (7-17); Calcium 9.7 mg/dL (8.4-10.2); Carbon Dioxide 34 mmol/L (22-30); Chloride 103 mmol/L (98-107); Estimated Glomerular Filt Rate > 60; Glucose 96 mg/dL (65-110); Potassium 3.5 mmol/L (3.4-5.0); Sodium 139 mmol/L (137-145)
[2021-04-27 12:54] LABS: Free T4 Free Thyroxine 1.23 ng/mL (0.78-2.19)
[2021-04-29 21:06] LABS: Homocysteine 7.9 umol/L (<10.4)
== END 2021-04-27 10:49 | disposition home or self-care (01) ==
LOC: ANHLAB 10:49
PROVIDERS: PCP Internal Medicine; Visit Provider Internal Medicine
DX: R73.03 Prediabetes (principal); I10 Essential (primary) hypertension; R79.89 Other specified abnormal findings of blood chemistry; Z79.899 Other long term (current) drug therapy
CPT/HCPCS: 36415; 80053; 83036; 83090; 84439; 84443; 99212; G0463

== ENCOUNTER 2021-06-09 10:46 | Outpatient (CLI) | payer OTHER, SELFPAY ==
[2021-06-09 11:14] LABS: Basophils Percent Auto 0.8 % (0.2-1.2); Eosinophils Absolute Auto 0.3 K/mm3 (0-0.3); Eosinophils Percent Auto 6.1 % (0-4.4); Hematocrit 35.2 % (37.0-47.0); Hemoglobin 11.1 g/dL (12.0-15.0); Immature Granulocyte Absolute 0.01 K/mm3 (0.00-0.031); Immature Granulocyte Percent A 0.2 % (0-0.5); Lymphocytes Absolute Auto 1.11 K/mm3 (0.9-3.2); Mean Corpuscular HGB Conc 31.5 g/dl (32-36); Mean Corpuscular Hemoglobin 24.9 pg (26-34); Mean Corpuscular Volume 78.9 fl (80-100); Mean Platelet Volume 10.5 fl (7.4-10.4); Monocytes Absolute Auto 0.4 K/mm3 (0.1-0.6); Monocytes Percent Auto 7.7 % (2.6-8.5); Neutrophils Absolute Auto 3.2 K/mm3 (1.3-6.7); Neutrophils Percent Auto 63.2 % (45.5-73.1); Platelet Count Result 272 k/mm3 (150-375); Red Blood Count 4.46 M/mm3 (4.2-5.4); Red Cell Distribution Width 17.1 % (11.5-14.5); White Blood Count 5.1 K/mm3 (4.5-10.0)
[2021-06-09 11:23] LABS: Alanine Aminotransferase 18 U/L (4-35); Alkaline Phosphatase 119 U/L (38-126); Anion Gap 3 mmol/L (8-16); Aspartate Amino Transferase 27 U/L (14-36); Bilirubin,Total 0.7 mg/dL (0.2-1.3); Blood Urea Nitrogen 20 mg/dL (7-17); Calcium 9.7 mg/dL (8.4-10.2); Carbon Dioxide 33 mmol/L (22-30); Chloride 101 mmol/L (98-107); Estimated Glomerular Filt Rate > 60; Glucose 99 mg/dL (65-110); Potassium 3.5 mmol/L (3.4-5.0); Sodium 137 mmol/L (137-145)
[2021-06-12 05:28] LABS: CA 15-3 14 U/mL (<32)
== END 2021-06-09 10:47 | disposition home or self-care (01) ==
LOC: ANHLAB 10:48
PROVIDERS: PCP Internal Medicine; Visit Provider Internal Medicine Hematology & Oncology
DX: C50.411 Malignant neoplasm of upper-outer quadrant of right female breast (principal); Z17.0 Estrogen receptor positive status [ER+]
CPT/HCPCS: 36415; 80053; 85025; 86300; 99212; G0463

== ENCOUNTER 2021-09-15 10:39 | Outpatient (CLI) | payer OTHER, SELFPAY ==
[2021-09-15 11:30] LABS: Basophils Absolute Auto 0.1 K/mm3 (0.0-0.1); Basophils Percent Auto 1.2 % (0.2-1.2); Eosinophils Absolute Auto 0.5 K/mm3 (0-0.3); Eosinophils Percent Auto 10.4 % (0-4.4); Hematocrit 40.5 % (37.0-47.0); Hemoglobin 12.8 g/dL (12.0-15.0); Immature Granulocyte Absolute 0.01 K/mm3 (0.00-0.031); Immature Granulocyte Percent A 0.2 % (0-0.5); Lymphocytes Absolute Auto 1.28 K/mm3 (0.9-3.2); Lymphocytes Percent Auto 24.7 % (18.3-44.2); Mean Corpuscular HGB Conc 31.6 g/dl (32-36); Mean Corpuscular Hemoglobin 27.5 pg (26-34); Mean Corpuscular Volume 86.9 fl (80-100); Mean Platelet Volume 10.4 fl (7.4-10.4); Monocytes Absolute Auto 0.4 K/mm3 (0.1-0.6); Monocytes Percent Auto 6.9 % (2.6-8.5); Neutrophils Absolute Auto 2.9 K/mm3 (1.3-6.7); Neutrophils Percent Auto 56.6 % (45.5-73.1); Platelet Count Result 250 k/mm3 (150-375); Red Blood Count 4.66 M/mm3 (4.2-5.4); Red Cell Distribution Width 17.3 % (11.5-14.5); White Blood Count 5.2 K/mm3 (4.5-10.0)
[2021-09-15 11:40] LABS: Add Urine Microscopic? YES; Appearance Urine Cloudy (Clear); Bilirubin Urine Negative (Negative); Blood Urine Negative (Negative); Color Urine Yellow (Yellow); Glucose Urine UA Negative (Negative); Ketones Urine Negative (Negative); Leukocyte Esterase Ur 3+ LEU/UL (Negative); Mucus Urine Rare /lpf; Nitrate Urine Negative (Negative); Protein Urine Negative (Negative); RBC Urine 0-2 /hpf (0-2); Specific Grav Ur 1.018 (1.001-1.035); Squamous Epithelial Cell Urine Rare /hpf (Few); Urobilinogen Urine Negative mg/dL (<2.0); WBC Urine 0-3 /hpf
[2021-09-15 11:45] LABS: Hemoglobin A1C 5.5 % (<5.7)
[2021-09-15 11:46] LABS: Alanine Aminotransferase 22 U/L (4-35); Albumin Level 3.9 g/dL (3.5-5.1); Alkaline Phosphatase 117 U/L (38-126); Anion Gap 4 mmol/L (8-16); Aspartate Amino Transferase 32 U/L (14-36); Bilirubin,Total 0.6 mg/dL (0.2-1.3); Blood Urea Nitrogen 22 mg/dL (7-17); Calcium 9.3 mg/dL (8.4-10.2); Carbon Dioxide 33 mmol/L (22-30); Chloride 104 mmol/L (98-107); Cholesterol 195 mg/dL (0-200); Estimated Glomerular Filt Rate > 60; Glucose 91 mg/dL (65-110); HDL Direct 69 mg/dL; Potassium 3.8 mmol/L (3.4-5.0); Sodium 141 mmol/L (137-145); Triglycerides 96 mg/dL (<150)
[2021-09-15 11:57] LABS: LDL Cholesterol Direct 70 mg/dL
[2021-09-15 12:10] LABS: Free T4 Free Thyroxine 1.16 ng/mL (0.78-2.19); Vitamin D 25 Hydroxy 36.4 ng/mL
[2021-09-15 12:12] LABS: Thyroid Stimulating Hormone 0.634 uIU/mL (0.465-4.680)
== END 2021-09-15 10:40 | disposition home or self-care (01) ==
PROVIDERS: PCP Internal Medicine; Visit Provider Internal Medicine
DX: E55.9 Vitamin D deficiency, unspecified (principal); E78.5 Hyperlipidemia, unspecified; R73.03 Prediabetes; Z51.81 Encounter for therapeutic drug level monitoring; Z79.899 Other long term (current) drug therapy; I10 Essential (primary) hypertension
CPT/HCPCS: 36415; 80053; 80061; 81001; 82306; 83036; 84439; 84443; 85025; 99212; G0463

== ENCOUNTER 2021-11-24 15:12 | Outpatient (CLI) | payer OTHER, SELFPAY ==
--- NOTE | ~2021-11-24 | XR_ITS ---
EXAM: XR hip BI wo pelvis HISTORY: BILATERAL HIP PAIN, CHRONIC, NO INJURY . COMPARISON: 03/22/2020. FINDINGS: Degenerative change in the lumbar spine. Moderate left and mild right superior joint space narrowing. Bilateral greater trochanter enthesopathy. No fracture or dislocation. IMPRESSION: Moderate left and mild right hip osteoarthritis. Reviewed, dictated and finalized at location K.
--- NOTE | ~2021-11-24 | XR_ITS ---
XR lumbar spine 2-3V 11/24/2021 15:40 Indication: Low back pain Procedure: 3 views lumbar spine Comparison: 03/22/2020 620 Findings: No there is severe disc narrowing at L1-2 with endplate sclerosis. There is advanced disc n arrowing at L3-4 and L4-5. There is dextroscoliosis. No acute fracture or traumatic malalignment. Mod erate lumbar spondylosis. There are cholecystectomy clips. Impression: 1: Progression of severe lumbar spondylosis with dextroscoliosis. Reviewed, dictated and finalized at location A. Impression: 1: Progression of severe lumbar spondylosis with dextroscoliosis.
== END 2021-11-24 15:13 | disposition home or self-care (01) ==
PROVIDERS: PCP Internal Medicine; Visit Provider Pain Medicine Interventional Pain Medicine
DX: M51.37 Other intervertebral disc degeneration, lumbosacral region (principal); M51.36 Other intervertebral disc degeneration, lumbar region; M47.816 Spondylosis without myelopathy or radiculopathy, lumbar region; M16.11 Unilateral primary osteoarthritis, right hip; M47.817 Spondylosis without myelopathy or radiculopathy, lumbosacral region
CPT/HCPCS: 72100; 73521

== ENCOUNTER 2021-12-08 11:02 | Outpatient (CLI) | payer OTHER, SELFPAY ==
[2021-12-08 11:29] LABS: Basophils Absolute Auto 0.1 K/mm3 (0.0-0.1); Basophils Percent Auto 0.7 % (0.2-1.2); Eosinophils Absolute Auto 0.2 K/mm3 (0-0.3); Hematocrit 40.6 % (37.0-47.0); Immature Granulocyte Absolute 0.03 K/mm3 (0.00-0.031); Immature Granulocyte Percent A 0.4 % (0-0.5); Lymphocytes Absolute Auto 1.54 K/mm3 (0.9-3.2); Lymphocytes Percent Auto 20.5 % (18.3-44.2); Mean Corpuscular Hemoglobin 28.1 pg (26-34); Mean Corpuscular Volume 87.9 fl (80-100); Mean Platelet Volume 10.6 fl (7.4-10.4); Monocytes Absolute Auto 0.6 K/mm3 (0.1-0.6); Monocytes Percent Auto 8.4 % (2.6-8.5); Neutrophils Absolute Auto 5.1 K/mm3 (1.3-6.7); Platelet Count Result 284 k/mm3 (150-375); Red Blood Count 4.62 M/mm3 (4.2-5.4); Red Cell Distribution Width 14.7 % (11.5-14.5); White Blood Count 7.5 K/mm3 (4.5-10.0)
[2021-12-08 11:39] LABS: Alanine Aminotransferase 22 U/L (6-35); Albumin Level 4.2 g/dL (3.5-5.1); Alkaline Phosphatase 129 U/L (38-126); Anion Gap 3 mmol/L (8-16); Aspartate Amino Transferase 24 U/L (14-36); Bilirubin,Total 0.4 mg/dL (0.2-1.3); Blood Urea Nitrogen 25 mg/dL (7-17); Calcium 9.2 mg/dL (8.4-10.2); Carbon Dioxide 29 mmol/L (22-30); Chloride 106 mmol/L (98-107); Estimated Glomerular Filt Rate > 60; Glucose 91 mg/dL (65-110); Potassium 3.4 mmol/L (3.4-5.0); Sodium 138 mmol/L (137-145)
[2021-12-10 15:53] LABS: CA 15-3 15 U/mL (<32)
== END 2021-12-08 11:03 | disposition home or self-care (01) ==
LOC: ANHLAB 11:07
PROVIDERS: PCP Internal Medicine; Visit Provider Internal Medicine Hematology & Oncology
DX: C50.411 Malignant neoplasm of upper-outer quadrant of right female breast (principal); Z17.0 Estrogen receptor positive status [ER+]
CPT/HCPCS: 36415; 80053; 85025; 86300; 99212; G0463

== ENCOUNTER 2021-12-15 12:10 | Outpatient (CLI) | payer OTHER, SELFPAY ==
--- NOTE | ~2021-12-15 | MM_ITS ---
EXAMINATION: MM screening bandar LT w karon HISTORY: Screening left mammogram, history of right mastectomy TECHNIQUE: Craniocaudal and mediolateral oblique 3-D tomosynthesis images were obtained and synthetic 2-D images were generated. CAD analysis was submitted and interpreted. COMPARISON: 12/10/2020, 12/02/2020, 12/05/2019, 11/27/2019, 11/14/2018 BREAST PARENCHYMAL COMPOSITION: There are scattered areas of fibroglandular density. FINDINGS: There is a stable mass in the middle third of the central breast. There is no suspicious ma ss, calcification, or architectural distortion to suggest malignancy. There has been no suspicious in terval change. IMPRESSION: 1. No mammographic evidence of malignancy. 2. Recommend routine screening mammography in one year. BI-RADS Category 2: Benign finding(s). Reviewed, dictated and finalized at location A.
== END 2021-12-15 12:11 | disposition home or self-care (01) ==
LOC: ANHIMG 12:11
PROVIDERS: PCP Internal Medicine; Visit Provider Internal Medicine Hematology & Oncology
DX: Z12.31 Encounter for screening mammogram for malignant neoplasm of breast (principal)
CPT/HCPCS: 77063; 77067

== ENCOUNTER → 2022-01-18 10:00 | Outpatient (CLI) | payer OTHER, SELFPAY ==
--- NOTE | ~2022-01-18 | US_ITS ---
EXAMINATION: US abdomen complete DATE: 01/18/2022 13:26 INDICATION: Right abdominal pain TECHNIQUE: Multiple grayscale and Doppler ultrasound images of the abdomen were obtained. COMPARISON: 03/17/2010 FINDINGS: Spleen is normal measuring 8.4 cm in maximal length. There is normal renal contour and echogenicity b ilaterally. The right kidney measures 9.9 x 4.1 x 4.3 cm and the left 10.5 x 4.9 x 4.9 cm. There are no focal renal lesions identified. There is no hydronephrosis. Abdominal aorta and shows proximal t o mid inferior vena cava are normal. The pancreatic head and body are normal in appearance. The panc reatic tail is not visualized. Liver has normal echogenicity and contour, with a smooth surface. No l iver lesion identified. No intrahepatic biliary duct dilation suspected. Portal venous flow was seen in the hepatopetal, normal direction and has normal Doppler waveform. Gallbladder is not visualized a nd reportedly surgically absent. Common bile duct measures 6 mm in maximal diameter which is normal. Bladder is normal. IMPRESSION: 1. Status post cholecystectomy. Otherwise normal abdominal ultrasound. Reviewed, dictated and finalized at location B.
--- NOTE | ~2022-01-18 | US_ITS ---
This report was recreated 02/03/2022. Original report was signed by Herrera Collins M.D. on 01/18/2022 13:38 CDT EXAMINATION: US abdomen complete DATE: 01/18/2022 13:26 INDICATION: Right abdominal pain TECHNIQUE: Multiple grayscale and Doppler ultrasound images of the abdomen were obtained. COMPARISON: 03/17/2010 FINDINGS: Spleen is normal measuring 8.4 cm in maximal length. There is normal renal contour and echogenicity bilaterally. The right kidney measures 9.9 x 4.1 x 4.3 cm and the left 10.5 x 4.9 x 4.9 cm. There are no focal renal lesions identified. There is no hydronephrosis. Abdominal aorta and shows proximal to mid inferior vena cava are normal. The pancreatic head and body are normal in appearance. The pancreatic tail is not visualized. Liver has normal echogenicity and contour, with a smooth surface. No liver lesion identified. No intrahepatic biliary duct dilation suspected. Portal venous flow was seen in the hepatopetal, normal direction and has normal Doppler waveform. Gallbladder is not visualized and reportedly surgically absent. Common bile duct measures 6 mm in maximal diameter which is normal. Bladder is normal. IMPRESSION: 1. Status post cholecystectomy. Otherwise normal abdominal ultrasound. Reviewed, dictated and finalized at location B. Dictated By: Herrera Collins MD 01/18/22 1336 Signed By: <Electronically signed by Herrera Collins MD in OV> 01/18/22 1338 [facility]
== END ==
PROVIDERS: PCP Internal Medicine; Visit Provider Internal Medicine
DX: R10.11 Right upper quadrant pain (principal); Z90.49 Acquired absence of other specified parts of digestive tract
CPT/HCPCS: 76700

== ENCOUNTER 2022-01-18 11:11 | Outpatient (CLI) | payer OTHER, SELFPAY ==
--- NOTE | ~2022-01-18 | XR_ITS ---
EXAMINATION: XR chest 2V DATE: 01/18/2022 11:50 INDICATION: Other chest pain. TECHNIQUE: Frontal and lateral views of the chest were obtained. COMPARISON: Chest 2 views 04/02/2017 FINDINGS: The chest demonstrates clear lungs without pneumonia, pleural effusion, or pneumothorax. Th e heart size is normal. Surgical clips in the right upper quadrant are likely from cholecystectomy. IMPRESSION: 1. No acute cardiopulmonary disease. Reviewed, dictated and finalized at location A.
[2022-01-18 12:00] LABS: Basophils Percent Auto 0.6 % (0.2-1.2); Eosinophils Absolute Auto 0.3 K/mm3 (0-0.3); Eosinophils Percent Auto 5.3 % (0-4.4); Hematocrit 40.5 % (37.0-47.0); Hemoglobin 13.3 g/dL (12.0-15.0); Immature Granulocyte Absolute 0.02 K/mm3 (0.00-0.031); Immature Granulocyte Percent A 0.4 % (0-0.5); Lymphocytes Absolute Auto 0.94 K/mm3 (0.9-3.2); Lymphocytes Percent Auto 19.9 % (18.3-44.2); Mean Corpuscular HGB Conc 32.8 g/dl (32-36); Mean Corpuscular Hemoglobin 28.5 pg (26-34); Mean Corpuscular Volume 86.9 fl (80-100); Mean Platelet Volume 10.6 fl (7.4-10.4); Monocytes Absolute Auto 0.4 K/mm3 (0.1-0.6); Monocytes Percent Auto 9.1 % (2.6-8.5); Neutrophils Absolute Auto 3.1 K/mm3 (1.3-6.7); Neutrophils Percent Auto 64.7 % (45.5-73.1); Platelet Count Result 259 k/mm3 (150-375); Red Blood Count 4.66 M/mm3 (4.2-5.4); Red Cell Distribution Width 14.9 % (11.5-14.5); White Blood Count 4.7 K/mm3 (4.5-10.0)
[2022-01-18 12:05] LABS: Appearance Urine Clear (Clear); Bilirubin Urine Negative (Negative); Blood Urine Negative (Negative); Color Urine Yellow (Yellow); Glucose Urine UA Negative (Negative); Ketones Urine Negative (Negative); Leukocyte Esterase Ur Trace LEU/UL (Negative); Nitrate Urine Negative (Negative); Protein Urine Negative (Negative); Urobilinogen Urine 0.2 mg/dL (<2.0); pH Urine 5.5 (5.0-9.0)
[2022-01-18 12:12] LABS: Alanine Aminotransferase 26 U/L (6-35); Albumin Level 4.3 g/dL (3.5-5.1); Alkaline Phosphatase 107 U/L (38-126); Anion Gap 3 mmol/L (8-16); Aspartate Amino Transferase 26 U/L (14-36); Bilirubin,Total 0.8 mg/dL (0.2-1.3); Blood Urea Nitrogen 25 mg/dL (7-17); Calcium 9.3 mg/dL (8.4-10.2); Carbon Dioxide 31 mmol/L (22-30); Chloride 105 mmol/L (98-107); Cholesterol 200 mg/dL (0-200); Estimated Glomerular Filt Rate > 60; Glucose 92 mg/dL (65-110); HDL Direct 66 mg/dL; Potassium 3.7 mmol/L (3.4-5.0); Sodium 139 mmol/L (137-145); Triglycerides 111 mg/dL (<150)
[2022-01-18 12:15] LABS: Mucus Urine Rare /lpf; WBC Clumps Urine Present /HPF
[2022-01-18 12:21] LABS: Add Urine Microscopic? YES
[2022-01-18 12:22] LABS: LDL Cholesterol Direct 74 mg/dL
[2022-01-18 16:57] LABS: Hemoglobin A1C 5.5 % (<5.7)
== END 2022-01-18 11:12 | disposition home or self-care (01) ==
LOC: ANHLAB 11:12
PROVIDERS: PCP Internal Medicine; Visit Provider Internal Medicine
DX: M54.9 Dorsalgia, unspecified (principal); R30.0 Dysuria; E78.5 Hyperlipidemia, unspecified; R73.03 Prediabetes; I10 Essential (primary) hypertension; R07.89 Other chest pain
CPT/HCPCS: 36415; 71046; 76700; 80053; 80061; 81001; 83036; 85025; 87077; 87086; 87186; 99212; G0463

== ENCOUNTER 2022-01-21 10:33 | Emergency (ER) | payer OTHER, SELFPAY ==
--- NOTE | ~2022-01-21 | CT_ITS ---
EXAMINATION: CT abdomen pelvis w con DATE: 01/21/2022 12:14 INDICATION: Right lower quadrant abdominal pain TECHNIQUE: Computed tomography (CT) of the abdomen and pelvis was performed with 100 CC Omnipaque 300 intravenous contrast. Automated exposure control and iterative reconstruction technique were employe d. Exam dose: 902.72 mGy-cm total exam DLP. COMPARISON: 01/18/2022 complete abdominal ultrasound examination FINDINGS: status post right mastectomy. Probable scarring of the middle lobe. Mild discoid atelectasi s or scarring in the lower lobes. Normal heart size. No pericardial or pleural effusion. Small sliding hiatal hernia. Status post cholecystectomy. The liver, spleen, pancreas and bile ducts and pancreatic duct are unrem arkable. Normal morphology of the adrenal glands. No renal mass lesion or urinary tract calculus or hydrourete ronephrosis. The urinary bladder is evacuated, essentially unremarkable. Status post hysterectomy. Normal caliber of the abdominal aorta. No intraperitoneal or retroperitoneal or pelvic mass lesion or adenopathy or ascites. The appendix is not visualized. No inflammatory changes noted in the right lower quadrant or elsewher e in the abdomen or pelvis. Minimal diverticulosis of the left colon; no CT evidence of diverticulitis. Small fat-containing umbilical hernia. Severe degenerative changes of the thoracic spine including severe degenerative disc disease in lower thoracic spine, particularly severe degenerative disease with prominent eburnation of apposing verte bral bodies at L1 to, severe degenerative disease at L3-4 and L4-5. IMPRESSION: Status post cholecystectomy Mild colonic diverticulosis; no evidence of diverticulitis Appendix is not visualized, presumably resected; no evidence of appendicitis Status post right mastectomy with probable postoperative radiation change of the middle lobe, mild bi lateral lower lobe discoid atelectasis or scarring Small sliding hiatal hernia Reviewed, dictated and finalized at Location A. Reviewed, dictated and finalized at location A. IMPRESSION: Status post cholecystectomy Mild colonic diverticulosis; no evidence of diverticulitis Appendix is not visualized, presumably resected; no evidence of appendicitis Status post right mastectomy with probable postoperative radiation change of th e middle lobe, mild bilateral lower lobe discoid atelectasis or scarring Small sliding hiatal hernia
[2022-01-21 10:40] VITALS: BP 156/76; PULSE 88; RESP 18; O2SAT 99
--- NOTE | 2022-01-21 10:42 | ED.ABDPAIN ---
HPI - Abdominal Pain General Chief Complaint: Abdominal Pain Stated Complaint: RLQ pain - urinary sx Time Seen by Provider: 01/21/22 10:42 History of Present Illness HPI narrative: The patient is a 61-year-old female with a history of breast cancer status postmastectomy, currently in remission 5 years, presenting to the emergency department for evaluation of right lower quadrant abdominal pain. Patient reports pain over the past 4 days, noted that she was recently seen by her primary care physician in which she had a urinalysis consistent with a urinary tract infection and the patient was placed on oral ciprofloxacin patient has been compliant with her medication and is currently on day 2 of the medication, she started this on January 19. Patient denies fever, chills, nausea or vomiting. She reports aching right lower quadrant pain and right flank pain that is exacerbated with movement. She reports some mild dysuria that has persisted despite taking the ciprofloxacin. She denies hematuria. Patient states that her primary care physician wanted her to come to the emergency department to obtain a CT scan. Patient denies any upper chest pain, pleuritic pain, cough, hemoptysis or shortness of breath. Related Data Home Medications Medication Instructions Recorded Confirmed anastrozole 1 mg tablet (Arimidex) 1 mg PO DAILY 07/24/19 01/18/22 [id number] 333 mg-133 3 tablet PO DAILY 08/26/20 01/18/22 mg-5 mg tablet cholecalciferol (vitamin D3) 50 50 mcg PO DAILY 08/26/20 01/18/22 mcg (2,000 unit) capsule folic acid 800 mcg tablet 0.8 mg PO DAILY 08/26/20 01/18/22 mecobalamin (vitamin B12) 5,000 5,000 mcg PO DAILY 08/26/20 01/18/22 mcg disintegrating tablet ibuprofen 800 mg tablet 800 mg PO BID 12/16/20 01/18/22 pregabalin 75 mg capsule (Lyrica) 75 mg PO BID 12/16/20 01/18/22 Allergy Relief (loratadine) 10 mg PO DAILY 02/02/21 01/18/22 cyclobenzaprine 10 mg tablet 10 mg PO BID PRN Pain 02/02/21 01/18/22 pseudoephedrine HCl 30 mg tablet 30 mg PO Q4-6H PRN Congestion 02/02/21 01/18/22 (Sudafed) Allergies Allergy/AdvReac Type Severity Reaction Status Date / Time Sulfa (Sulfonamide Allergy Severe Ulcers Verified 01/21/22 10:45 Antibiotics) lisinopril Allergy Intermediate Itching Verified 01/21/22 10:45 morphine AdvReac Mild Itching Verified 01/21/22 10:45 Review of Systems Review of Systems: CONSTITUTIONAL: Denies fever, chills, or sweats. EYES: Denies visual changes, redness, or discharge. ENT: Denies rhinorrhea, congestion, sore throat, or otalgia. CARDIOVASCULAR: Denies chest pain, palpitations, or edema. RESPIRATORY: Denies cough or dyspnea. GASTROINTESTINAL: Reports right lower abdominal pain, denies nausea, vomiting or diarrhea GENITOURINARY: Denies dysuria or hematuria. SKIN: Denies rash or itching., No vesicular lesion. Patient reports history of shingles in the past, states that there has been no lesions that she is noticed. MUSCULOSKELETAL: Reports right flank pain, denies middle back pain, joint pain or myalgias NEUROLOGIC: Denies headache, numbness, or weakness. [facility] Past Medical History Medical History Adverse effect of anesthesia nausea Arthritis Arthritis of foot, left, degenerative Axillary lump Back pain Benign essential hypertension Blockage of subclavian artery BMI 33.0-33.9,adult BMI 34.0-34.9,adult BMI 35.0-35.9,adult BMI 36.0-36.9,adult Borderline abnormal TFTs Breast cancer Breast cancer screening Cardiomyopathy Chronic low back pain Chronic pain in left foot Closed nondisplaced oblique fracture of shaft of left fibula Colon cancer screening Elevated hemoglobin A1c Elevated homocysteine Encounter for postoperative care Encounter for routine adult health examination without abnormal findings Factor 5 Leiden mutation, heterozygous Factor V Leiden Flat foot [pes planus] (acquired), right foot (02/06/16) Foot pain, righ
[2022-01-21 11:11] LABS: Basophils Percent Auto 0.8 % (0.2-1.2); Eosinophils Absolute Auto 0.4 K/mm3 (0-0.3); Eosinophils Percent Auto 7.9 % (0-4.4); Hematocrit 42.2 % (37.0-47.0); Hemoglobin 13.5 g/dL (12.0-15.0); Immature Granulocyte Absolute 0.02 K/mm3 (0.00-0.031); Immature Granulocyte Percent A 0.4 % (0-0.5); Lymphocytes Absolute Auto 1.36 K/mm3 (0.9-3.2); Lymphocytes Percent Auto 27.6 % (18.3-44.2); Mean Corpuscular Hemoglobin 28.4 pg (26-34); Mean Corpuscular Volume 88.7 fl (80-100); Mean Platelet Volume 10.3 fl (7.4-10.4); Monocytes Absolute Auto 0.5 K/mm3 (0.1-0.6); Monocytes Percent Auto 10.3 % (2.6-8.5); Neutrophils Absolute Auto 2.6 K/mm3 (1.3-6.7); Platelet Count Result 247 k/mm3 (150-375); Red Blood Count 4.76 M/mm3 (4.2-5.4); Red Cell Distribution Width 14.6 % (11.5-14.5); White Blood Count 4.9 K/mm3 (4.5-10.0)
[2022-01-21 11:13] LABS: Appearance Urine Clear (Clear); Bilirubin Urine Negative (Negative); Blood Urine Negative (Negative); Color Urine Yellow (Yellow); Glucose Urine UA Negative (Negative); Ketones Urine Negative (Negative); Leukocyte Esterase Ur Trace LEU/UL (Negative); Nitrate Urine Negative (Negative); Protein Urine Negative (Negative); Specific Grav Ur 1.025 (1.001-1.035); Urobilinogen Urine 0.2 mg/dL (<2.0); pH Urine 5.5 (5.0-9.0)
[2022-01-21 11:23] LABS: Mucus Urine Rare /lpf; RBC Urine 0-2 /hpf (0-2); Squamous Epithelial Cell Urine Rare /hpf (Few)
[2022-01-21 11:25] LABS: Alanine Aminotransferase 28 U/L (6-35); Albumin Level 4.5 g/dL (3.5-5.1); Alkaline Phosphatase 128 U/L (38-126); Anion Gap 3 mmol/L (8-16); Aspartate Amino Transferase 29 U/L (14-36); Bilirubin,Total 0.8 mg/dL (0.2-1.3); Blood Urea Nitrogen 21 mg/dL (7-17); Calcium 9.6 mg/dL (8.4-10.2); Carbon Dioxide 34 mmol/L (22-30); Chloride 102 mmol/L (98-107); Estimated CRCL calculation 63 ml/min; Estimated Glomerular Filt Rate > 60; Glucose 96 mg/dL (65-110); Lipase 31 U/L (23-300); Potassium 3.5 mmol/L (3.4-5.0); Sodium 139 mmol/L (137-145)
--- NOTE | 2022-01-21 11:29 | PC.NURSE ---
unsuccessful IV attempt. Called Chantale for IV insertion.
[2022-01-21 11:54] LABS: Add Urine Microscopic? YES
[2022-01-21] MEDS: SODIUM CHLORIDE 0.9% IV 1,000 ML 999 ML IV CONT (12:34)
[2022-01-21] MEDS: ONDANSETRON INJ 4 MG/2 ML VIAL IV PUSH (12:34)
[2022-01-21] MEDS: oxyCODONE/ACETAMINOPHEN (*CRX) 5-325 MG TABLET 1 TABLET PO (12:55)
== END 2022-01-21 13:20 | disposition home or self-care (01) ==
PROVIDERS: Emergency Provider Emergency Medicine; PCP Internal Medicine
DX: R10.31 Right lower quadrant pain (principal); I10 Essential (primary) hypertension; I42.9 Cardiomyopathy, unspecified; D68.51 Activated protein C resistance; E78.5 Hyperlipidemia, unspecified; R73.03 Prediabetes; M19.071 Primary osteoarthritis, right ankle and foot; M19.072 Primary osteoarthritis, left ankle and foot; Z85.3 Personal history of malignant neoplasm of breast; G25.81 Restless legs syndrome; Z90.11 Acquired absence of right breast and nipple; K57.90 Diverticulosis of intestine, part unspecified, without perforation or abscess without bleeding; K44.9 Diaphragmatic hernia without obstruction or gangrene
CPT/HCPCS: 36415; 74177; 80053; 81001; 83690; 85025; 96361; 96374; 99284; A9270; J2405; J7030; Q9967

== ENCOUNTER 2022-03-22 16:08 | Outpatient (CLI) | payer OTHER, SELFPAY ==
--- NOTE | ~2022-03-22 | US_ITS ---
EXAMINATION: US pelvic complete w TV DATE: 03/22/2022 17:10 INDICATION: Intra-abdominal and pelvic swelling, mass, and lump. TECHNIQUE: Multiple transabdominal and transvaginal sonographic images of the pelvis were obtained. COMPARISON: CT abdomen and pelvis 04/23/2022 FINDINGS: TRANSABDOMINAL ULTRASOUND: The uterus is absent. There is no free fluid in the pelvis. TRANSVAGINAL ULTRASOUND: There is a 1.0 x 0.6 x 0.9 cm ill-defined hypoechoic mass in the vaginal cuff. The left ovary is abse nt. The right ovary is not visualized. IMPRESSION: 1. 1.0 cm mass in the vaginal cuff, which may be scarring or inflammation. 2. Right ovary not visualized. Reviewed, dictated and finalized at location A.
== END 2022-03-22 16:09 | disposition home or self-care (01) ==
LOC: ANHIMG 16:10
PROVIDERS: PCP Internal Medicine; Visit Provider Obstetrics & Gynecology
DX: R19.00 Intra-abdominal and pelvic swelling, mass and lump, unspecified site (principal)
CPT/HCPCS: 76830; 76856

== ENCOUNTER 2022-05-11 11:21 | Outpatient (CLI) | payer OTHER, SELFPAY ==
--- NOTE | ~2022-05-11 | XR_ITS ---
XR thoracic spine min 4V DATE: 05/11/2022 11:51 INDICATION: Worsening right sided back pain for 3 months. No known injury. TECHNIQUE: Standing AP, lateral and flexion and extension lateral views COMPARISON: None FINDINGS: There is thoracic and to a greater extent lumbar scoliosis. There is degenerative disc disease at C5-6 and C6-7. There is degenerative spurring of the thoracic s pine and degenerative disc disease of the lumbar spine. The thoracic pedicles are intact. No thoracic spine fracture or dislocation or instability is noted. No bone destruction is detected. No paraspinal soft tissue thickening. Surgical clips, right upper quadrant, likely due to cholecystectomy. IMPRESSION: Scoliosis of the thoracic and lumbar spine Degenerative changes of the cervical, thoracic and lumbar spine Reviewed, dictated and finalized at location A.
== END 2022-05-11 11:22 | disposition home or self-care (01) ==
PROVIDERS: PCP Internal Medicine; Visit Provider Internal Medicine
DX: R10.9 Unspecified abdominal pain (principal); M41.9 Scoliosis, unspecified; M51.36 Other intervertebral disc degeneration, lumbar region; M51.34 Other intervertebral disc degeneration, thoracic region; M50.30 Other cervical disc degeneration, unspecified cervical region
CPT/HCPCS: 72074

== ENCOUNTER 2022-05-18 10:24 | Outpatient (CLI) | payer OTHER, SELFPAY ==
--- NOTE | ~2022-05-18 | DEXA_ITS ---
Bone Density Report Name: JOHN ZAVALA Age: 61 Sex: Female Ethnicity: White Date of : 1960 Indication: postmenopausal; screening for osteoporosis; height loss; cancer; Referring Provider: SHERLEY CIFUENTES Study: Bone densitometry was performed. Exam Date: May 18, 2022 Accession number: [id number] Bone Density: Region BMD T-score Z-score Classification AP Spine(L1-L4) 1.275 2.1 3.5 Normal Femoral Neck (Left) 0.748 -0.9 0.4 Normal Total Hip (Left) 0.921 -0.2 0.7 Normal Femoral Neck (Right) 0.797 -0.5 0.8 Normal Total Hip (Right) 0.898 -0.4 0.6 Normal Total Hip Mean 0.909 -0.3 0.7 Normal World Health Organization criteria for BMD impression classify patients as: Normal (T-score at or above -1.0), Osteopenia (T-score between -1.0 and -2.5), or Osteoporosis (T-score at or below -2.5). 10-year Fracture Risk: FRAX not reported because: All T-scores for Spine Total, Hip Total, Femoral Neck at or above -1.0 Clinical Information Provided by Patient: Has used the following medications: Vitamin D, Calcium Has the following medical conditions: Cancer Patient maximum height was 63.5 Menopause Age: 43 No regular weight bearing exercise Does not regularly consume dairy products Drinks caffeinated beverages Number of children 2 Impression: The patient has normal bone mass. Discussion: BONE DENSITY IS ABOVE THE MINIMUM DESIRABLE LEVEL AT ALL SKELETAL SITES TESTED. This patient?s bone mineral density is above the minimum desirable level (T-score -1.0 or better) at all sites measured. The patient should follow a healthful lifestyle (good nutrition with adequate calcium and vitamin D, and appropriate weight-bearing exercise). Follow-Up: Consider repeating this study in 5 years or sooner if there is some new clinical indication. Reported by: BRANDY on 05/18/2022 12:47:00 PM. Reviewed, dictated and finalized at location AYoana HERNANDEZ
== END 2022-05-18 10:25 | disposition home or self-care (01) ==
PROVIDERS: PCP Internal Medicine; Visit Provider Obstetrics & Gynecology
DX: Z78.0 Asymptomatic menopausal state (principal); M81.0 Age-related osteoporosis without current pathological fracture
CPT/HCPCS: 77080

== ENCOUNTER 2022-06-08 10:50 | Outpatient (CLI) | payer OTHER, SELFPAY ==
[2022-06-08 11:35] LABS: Basophils Absolute Auto 0.1 K/mm3 (0.0-0.1); Eosinophils Absolute Auto 0.6 K/mm3 (0-0.3); Eosinophils Percent Auto 8.8 % (0-4.4); Hematocrit 39.2 % (37.0-47.0); Hemoglobin 12.8 g/dL (12.0-15.0); Immature Granulocyte Absolute 0.02 K/mm3 (0.00-0.031); Immature Granulocyte Percent A 0.3 % (0-0.5); Lymphocytes Absolute Auto 1.57 K/mm3 (0.9-3.2); Lymphocytes Percent Auto 25.2 % (18.3-44.2); Mean Corpuscular HGB Conc 32.7 g/dl (32-36); Mean Corpuscular Hemoglobin 28.1 pg (26-34); Mean Corpuscular Volume 86.2 fl (80-100); Mean Platelet Volume 10.6 fl (7.4-10.4); Monocytes Absolute Auto 0.4 K/mm3 (0.1-0.6); Monocytes Percent Auto 6.9 % (2.6-8.5); Neutrophils Absolute Auto 3.6 K/mm3 (1.3-6.7); Neutrophils Percent Auto 57.8 % (45.5-73.1); Platelet Count Result 292 k/mm3 (150-375); Red Blood Count 4.55 M/mm3 (4.2-5.4); Red Cell Distribution Width 14.4 % (11.5-14.5); White Blood Count 6.2 K/mm3 (4.5-10.0)
[2022-06-08 11:49] LABS: Alanine Aminotransferase 20 U/L (6-35); Albumin Level 3.9 g/dL (3.5-5.1); Alkaline Phosphatase 98 U/L (38-126); Anion Gap 3 mmol/L (8-16); Aspartate Amino Transferase 24 U/L (14-36); Bilirubin,Total 0.9 mg/dL (0.2-1.3); Blood Urea Nitrogen 27 mg/dL (7-17); Calcium 9.3 mg/dL (8.4-10.2); Carbon Dioxide 32 mmol/L (22-30); Chloride 102 mmol/L (98-107); Cholesterol 188 mg/dL (0-200); Estimated Glomerular Filt Rate > 60; Glucose 97 mg/dL (65-110); HDL Direct 76 mg/dL; Potassium 3.3 mmol/L (3.4-5.0); Sodium 137 mmol/L (137-145); Triglycerides 67 mg/dL (<150)
[2022-06-08 11:59] LABS: LDL Cholesterol Direct 72 mg/dL
[2022-06-08 12:02] LABS: Hemoglobin A1C 5.9 % (<5.7)
[2022-06-11 03:53] LABS: CA 15-3 16 U/mL (<32)
== END 2022-06-08 10:51 | disposition home or self-care (01) ==
LOC: ANHLAB 10:54
PROVIDERS: PCP Internal Medicine; Visit Provider Internal Medicine
DX: C50.411 Malignant neoplasm of upper-outer quadrant of right female breast (principal); Z17.0 Estrogen receptor positive status [ER+]; I10 Essential (primary) hypertension; R73.09 Other abnormal glucose; Z79.899 Other long term (current) drug therapy; E78.5 Hyperlipidemia, unspecified
CPT/HCPCS: 36415; 80053; 80061; 83036; 85025; 86300; 99212; G0463

== ENCOUNTER 2022-06-17 16:25 | Outpatient (CLI) | payer OTHER, SELFPAY ==
--- NOTE | ~2022-06-17 | MR_ITS ---
EXAMINATION: MR lumbar spine wo con DATE: 06/17/2022 17:12 INDICATION: Lumbar radiculopathy. TECHNIQUE: Magnetic resonance imaging (MRI) of the lumbar spine was performed without intravenous con trast. Sequences included sagittal T2-weighted FSE, sagittal T2-weighted FS FSE, sagittal T1-weighted FSE, and axial T2-weighted FSE. COMPARISON: Lumbar spine MRI 09/08/2018 FINDINGS: There is 25 degrees dextroscoliosis of thoracolumbar spine. There is 3 mm retrolisthesis of L1 on L2 and 3 mm retrolisthesis of L4 on L5. There is mild chronic anterior wedging of T10 vertebra l body. There is severely decreased disc height at T10-T11 and T11-T12, moderately decreased disc hei ght at T12-L1, severely decreased disc height at L1-L2, mildly decreased disc height at L2-L3, severe ly decreased disc height at L3-L4 and L4-L5, and moderately decreased disc height at L5-S1 with endpl ate remodeling. Epidural lipomatosis is noted. There is ligamentum flavum hypertrophy at the lumbar d isc levels. The distal spinal cord signal intensity is normal. The conus medullaris is at T12-L1. The following disc levels are specifically discussed: L1-L2: The disc is bulging and has an annular fissure. There is severe bilateral facet joint osteoart hritis. There is mild right and severe left neural foraminal stenosis. There is mild central canal st enosis. L2-L3: The disc is bulging. There is severe bilateral facet joint osteoarthritis. There is mild bilat eral neural foraminal stenosis. There is mild central canal stenosis. L3-L4: The disc is bulging and has an annular fissure. There is severe bilateral facet joint osteoart hritis. There is mild bilateral neural foraminal stenosis. There is mild central canal stenosis. L4-L5: The disc is bulging and has an annular fissure. There is severe bilateral facet joint osteoart hritis. There is mild bilateral neural foraminal stenosis. There is mild central canal stenosis. L5-S1: The disc is bulging and has an annular fissure. The disc abuts the left S1 nerve root in left lateral recess. There is severe bilateral facet joint osteoarthritis. There is mild right and moderat e left neural foraminal stenosis. There is mild central canal stenosis. There is moderate stenosis of left lateral recess. IMPRESSION: 1. Severe lumbar and thoracic spondylosis, worsened from 09/08/2018. 2. Thoracolumbar dextroscoliosis. Reviewed, dictated and finalized at location E. NEERING SURVEYOR
== END 2022-06-17 16:26 | disposition home or self-care (01) ==
PROVIDERS: PCP Internal Medicine; Visit Provider Pain Medicine Interventional Pain Medicine
DX: M47.25 Other spondylosis with radiculopathy, thoracolumbar region (principal); M41.9 Scoliosis, unspecified
CPT/HCPCS: 72148

== ENCOUNTER 2022-07-06 11:26 | Outpatient (CLI) | payer OTHER, SELFPAY ==
--- NOTE | 2022-07-06 11:42 | ECG_ITS ---
Measurements Intervals [place] Rate: 84 P: 61 [place]: 158 QRS: 13 QRSD: 80 T: 21 QT: 337 QTc: 399 Interpretive Statements SINUS RHYTHM BASELINE ARTIFACT LOW QRS VOLTAGE IN PRECORDIAL LEADS NONSPECIFIC T-WAVE ABNORMALITY BORDERLINE ECG COMPARED TO ECG 02/02/2021 15:16:00 T-WAVE ABNORMALITY NOW PRESENT Electronically Signed On 07-06-2022 17:58:44 SURVEILLANCE OPERATOR by Butch White M.D.
== END 2022-07-06 11:27 | disposition home or self-care (01) ==
PROVIDERS: PCP Internal Medicine; Visit Provider Orthopaedic Surgery
DX: I10 Essential (primary) hypertension (principal); Z01.818 Encounter for other preprocedural examination; R94.31 Abnormal electrocardiogram [ECG] [EKG]
CPT/HCPCS: 93005

== ENCOUNTER 2022-07-08 01:05 | Day surgery (SDC) | payer OTHER, SELFPAY ==
--- NOTE | 2022-06-28 16:59 | SUR.PREOP ---
Report to the Outpatient Waiting Room, entrance under the green pavilion located off [facility], at time 0930 on date 07/08/22. Planned Procedure Time: 1130. Time changes happen often and if your time is changed the preop area will call you the afternoon before. - You and your visitor will be asked to self-screen and do not enter if you have any COVID symptoms. - Only one visitor is requested with a max of two and NO children visitors are allowed at this time. - The patient visitor may be requested to leave or wait in car when not with patient due to distancing restrictions. - A mask is optional within the hospital. Patients may have clear liquids (water, carbonated beverages, clear teas, apple juice) until 3 hours prior to surgery with a maximum of 20 ounces. - No food from midnight until time of surgery - Infants may have breast milk until 4 hours before surgery, infant formula 6 hours prior to surgery. - Children will be allowed to drink immediately following surgery. If applicable, please bring a bottle or sippy cup to assist with drinking. Juice, water, soda, and popsicles are readily available. For infants on formula, please bring formula the day of surgery. Pacifiers are allowed. Take the following medications with a SIP of water the morning of surgery: ARIMIDEX, CYCLOBENZAPRINE, LYRICA Medications to discontinue per physician STOP VITAMINS & SUPPLEMENTS 07/05/[address] CALL [address] ALMAZAN'S OFFICE IN REGARDS TO CONTINUING OR STOPPING ASPIRIN, IBUPROFEN, LYRICA Please no make-up, nail yakut, hairspray, perfume, deodorant, or body powder the day of surgery. No jewelry (including any body piercings) or valuables the day of surgery, leave them at home. Please take a shower or bath the night before, or the morning of, surgery with an antibacterial soap. Wear comfortable, loose fitting clothing. Children are encouraged to wear pajamas. - Jewelry must be removed prior to entering the operating room. Rings and piercings that are not removed may be cut off. - The hospital will not accept responsibility for valuables. - Please leave all valuables, including medications, at home the day of surgery. If you are going home after surgery, a licensed tanker truck driver must drive you home. - NO public transportation without another adult if you receive anesthesia. - We recommend that an adult stay with you for 24 hours following discharge. - We also recommend that you do not drive, make important decision, drink alcoholic beverages, or take any drugs that were not prescribed by your health care provider for at least 24 hours after your discharge time. For Pediatric surgeries, we recommend two adults accompany the child home. Follow any additional instructions given to you from your surgeon. If you or anyone in your household have experienced Covid symptoms in the past week, please notify your surgeon or the nurse liaison at the phone number below for possible testing. Telephone instructions given to JOHN ZAVALA and asked if any additional questions and then verbalized understanding. Patient advised to call surgeon office or pre surgery nurse liaison [phone] if any additional questions.
[2022-06-28 17:10] VITALS: BMI 29.7
--- NOTE | 2022-07-07 17:03 | PM.IMHP ---
H&P: HPI History of Present Illness Date/Time: 07/07/22 17:03 Chief Complaint: left foot pain and deformity Narrative: 61-year-old woman status post left foot triple arthrodesis. Still with deformity and pain, difficulty with shoe wear and ambulation. Has failed conservative treatment. Presents for operative treatment. Review of Systems Constitutional: Constitutional: Denies fever(s) Eyes: Eyes: Denies blurry vision ENT: Reports Normal hearing present Cardiovascular: Cardiovascular: Denies chest pain and Denies dyspnea Respiratory: Respiratory: Denies dyspnea and Denies wheezing Gastrointestinal: Gastrointestinal: Denies abdominal pain Genitourinary: Genitourinary: Denies urinary urgency Musculoskeletal: Musculoskeletal: Reports as per HPI and Denies numbness Integumentary/Breasts: Skin/Breast: Denies changing lesions and Denies sores Neurologic: Reports Normal hearing present, Denies behavioral changes, Denies confusion and Denies convulsions Psychiatric: Psychiatric: Denies behavioral changes, Denies confusion and Denies hallucinations Endocrine: Endocrine: Denies heat intolerance Hematologic/Lymphatic: Hematologic/Lymphatic: Denies easy bleeding Allergic/Immunologic: Allergic/Immunologic: Denies wheezing PMFSH Past Medical History Medical History Acute hypokalemia Adverse effect of anesthesia nausea Arthritis Arthritis of foot, left, degenerative Axillary lump Back pain Benign essential hypertension Blockage of subclavian artery BMI 30.0-30.9,adult BMI 31.0-31.9,adult BMI 33.0-33.9,adult BMI 34.0-34.9,adult BMI 35.0-35.9,adult BMI 36.0-36.9,adult Borderline abnormal TFTs Breast cancer Breast cancer screening Cardiomyopathy Chronic low back pain Chronic pain in left foot Closed nondisplaced oblique fracture of shaft of left fibula Colon cancer screening Elevated hemoglobin A1c Elevated homocysteine Encounter for postoperative care Encounter for routine adult health examination without abnormal findings Factor 5 Leiden mutation, heterozygous Factor V Leiden Flat foot [pes planus] (acquired), right foot (02/06/16) Foot pain, right Hip bursitis, left Hyperlipidemia Hypertension Lumbar radiculopathy, right Other specified polyneuropathies Painful orthopaedic hardware Pelvic fullness in female Pre-diabetes Primary osteoarthritis of right foot Right ankle joint deformity Right flank pain RLS (restless legs syndrome) Stress fracture, unspecified tibia and fibula, subsequent encounter for fracture with routine healing Trochanteric bursitis of right hip Wound dehiscence Wound of right foot Surgical History Surgical History H/O foot surgery Left foot triple arthrodesis by Dr. Meadows on 02/05/21 Right foot triple arthrodesis by Dr. Meadows on 02/02/16 History of hysterectomy, supracervical History of mastectomy History of microdiscectomy Hx of cholecystectomy Previous section x 2 S/P surgical manipulation of ankle joint Family History Family History Father Family history of pancreatic cancer Mother Diabetes mellitus Hypertension Grandparent Cerebrovascular accident Carcinoma of colon Other Arthritis Depression Family history of arthritis Family history of cardiovascular disease Family history of malignant neoplasm High cholesterol Social History Social History Smoking status: Never smoker Second hand tobacco smoke exposure: No Alcohol intake: never Substance use: never Substance use type: does not use Lack of Transportation: No Lack of Food: Never True Current Housing: I Have Housing Concerned About Future Housing: No Difficulty Paying Gas/Electric Bills: No Difficulty Paying for Meds: No Currently Unemployed: No
[2022-07-08] VITALS (7 sets, daily range): BP systolic 139–174; BP diastolic 60–78; PULSE 78–100; RESP 11–16; TEMP 36.4–36.5; O2SAT 98–100
--- NOTE | ~2022-07-08 | XR_ITS ---
EXAMINATION: XR surgery orthopedic DATE: 07/08/2022 10:32 INDICATION: Left foot orthopedic instrumentation removal TECHNIQUE: 6 fluoroscopic images of the left ankle, mid and hindfoot were obtained during procedure p erformed by Dr. Meadows. Radiologist was not present for the imaging or procedure. The amount of fluo roscopy time used during this procedure was 0.9 minutes. COMPARISON: 02/05/2021 FINDINGS: Interval removal of the staple fixation spanning the calcaneocuboid and talonavicular joints and of t he lag screw fixation across the talonavicular joint with residual lucent tracks at the site of the r emoved instrumentation. There has also been removal of the 2 variable pitch compression screws spanni ng the calcaneus and now fused. Subtalar joint. Comment there is placement of new variable pitch comp ression screws spanning the talonavicular and calcaneocuboid joints. New realignment osteotomy across the body of the calcaneus which is now fixed with a new cannulated lag screw. Although nonweightbear ing there appears to be mild pes planus with some residual plantar subluxation of the head of the kimmy us relative to the navicula. Old healed fracture deformity at the distal left fibular diaphysis. No a cute fractures identified. Moderate osteoarthritis at the tibiotalar joint. Mild osteoarthritis at th e talonavicular and a few tarsal metatarsal joints. Moderate-sized plantar calcaneal spur. Expected p ostoperative gas in the ankle joint, along the osteotomy and in some of the surrounding soft tissues. IMPRESSION: 1. Fluoroscopy utilized during revision of a left hindfoot arthrodesis with removal of prior instrume ntation and placement of new screw fixation spanning the calcaneocuboid and talonavicular joints and a new calcaneal osteotomy. See procedure note for further detail. Reviewed, dictated and finalized at location A. LYTIC CASE OPERATOR IMPRESSION: 1. Fluoroscopy utilized during revision of a left hindfoot arthrodesis with rem oval of prior instrumentation and placement of new screw fixation spanning the calcaneocuboid and talonavicular joints and a new calcaneal osteotomy. See proc edure note for further detail.
--- NOTE | 2022-07-08 07:10 | WPDHPUPDATE1 ---
History and Physical Update Update Date/Time: 07/08/22 07:10 History and Physical has been reviewed, including an updated exam of the patient. There are NO changes in the patient's condition. Risks, benefits, and alternatives have been discussed and questions answered. Patient agrees to proceed with procedure.
[2022-07-08] MEDS: LACTATED RINGERS 1,000 ML 30 ML IV CONT ×2 (07:32→11:00)
[2022-07-08] MEDS: KETOROLAC 15 MG/ML VIAL (*BKC) IV PUSH (07:42)
[2022-07-08] MEDS: ACETAMINOPHEN 500 MG TABLET 1000 MG PO (07:44)
--- NOTE | 2022-07-08 07:47 | SUR.PREOP ---
pt states does not like crutches,has knee scooter to use at home,dr ellington aware.
--- NOTE | 2022-07-08 08:13 | WPDANESEPPF ---
Anes - Initial Pre Proc Eval Procedure: Operation Date: 07/08/22 09:00 Proposed Procedures p Left Foot Hardware Removal - Ayan Meadows MD s Calcaneal and Midfoot Osteotomy Left Foot - Ayan Meadows MD Date/Time: 07/08/22 08:13 Surgeon: Ayan Meadows MD Pre Op Diagnosis: Lt Flat Foot, Pain, Arthritis, Painful Hardware Patient Data Age: 61 Gender: F Height: 1.55 m Weight: 71.3 kg Last Vital Signs Temp 36.4 C L 07/08/22 07:07 Pulse 100 07/08/22 07:07 Resp 16 07/08/22 07:07 BP 174/78 H 07/08/22 07:07 Pulse Ox 100 07/08/22 07:07 O2 Del Method Room Air 07/08/22 07:07 Allergies Allergy/AdvReac Type Severity Reaction Status Date / Time Sulfa (Sulfonamide Allergy Severe Ulcers Verified 07/08/22 07:35 Antibiotics) lisinopril Allergy Intermediate Itching Verified 07/08/22 07:35 morphine AdvReac Mild Itching Verified 07/08/22 07:35 Home Medications Medication Instructions Recorded Confirmed Type anastrozole 1 mg tablet (Arimidex) 1 mg PO DAILY 07/24/19 07/08/22 History [id number] 333 mg-133 3 tablet PO DAILY 08/26/20 07/08/22 History mg-5 mg tablet cholecalciferol (vitamin D3) 50 50 mcg PO DAILY 08/26/20 07/08/22 History mcg (2,000 unit) capsule folic acid 800 mcg tablet 0.8 mg PO DAILY 08/26/20 07/08/22 History mecobalamin (vitamin B12) 5,000 5,000 mcg PO DAILY 08/26/20 07/08/22 History mcg disintegrating tablet ibuprofen 800 mg tablet 800 mg PO BID 12/16/20 07/08/22 History pregabalin 75 mg capsule (Lyrica) 75 mg PO BID 12/16/20 07/08/22 History Allergy Relief (loratadine) 10 mg PO DAILY 02/02/21 07/08/22 History cyclobenzaprine 10 mg tablet 10 mg PO BID PRN Pain 02/02/21 07/08/22 History pseudoephedrine HCl 30 mg tablet 30 mg PO Q4-6H PRN Congestion 02/02/21 07/08/22 History (Sudafed) aspirin 325 mg tablet 650 mg PO DAILY 4 weeks #56 tabs 02/05/21 07/08/22 Rx potassium chloride 10 mEq 10 meq PO DAILY #30 tabs 06/22/22 07/08/22 Rx tablet,extended release colesevelam 625 mg tablet (WelChol) 1,875 mg PO BID 06/28/22 07/08/22 History fluticasone propionate 50 2 spray intranasal DAILY 06/28/22 07/08/22 History mcg/actuation nasal spray,suspension (Flonase Allergy Relief) losartan 25 mg tablet 25 mg PO DAILY 06/28/22 07/08/22 History pantoprazole 40 mg tablet,delayed 40 mg PO DAILY 06/28/22 07/08/22 History release scopolamine base 1 mg over 3 days 1 patch transdermal Q3D PRN nausea 06/30/22 07/08/22 Rx transdermal patch and vomiting #4 ea Patient hx anesthesia problems: none Family hx anesthesia problems: none Results Review: All pre-operative results and documents have been reviewed as part of the pre-operative evaluation. [facility] Past Medical History Medical History Acute hypokalemia Adverse effect of anesthesia nausea Arthritis Arthritis of foot, left, degenerative Axillary lump Back pain Benign essential hypertension Blockage of subclavian artery BMI 30.0-30.9,adult BMI 31.0-31.9,adult BMI 33.0-33.9,adult BMI 34.0-34.9,adult BMI 35.0-35.9,adult BMI 36.0-36.9,adult Borderline abnormal TFTs Breast cancer Breast cancer screening Cardiomyopathy Chronic low back pain Chronic pain in left foot Closed nondisplaced oblique fracture of shaft of left fibula Colon cancer screening Elevated hemoglobin A1c Elevated homocysteine Encounter for postoperative care Encounter for routine adult health examination without abnormal findings Factor 5 Leiden mutation, heterozygous Factor V Leiden Flat foot [pes planus] (acquired), right foot (02/06/16) Foot pain, right Hip bursitis, left Hyperlipidemia Hypertension Lumbar radiculopathy, right Other specified polyneuropathies Painful orthopaedic hardware Pelvic fullness in female Pre-diabetes Primary osteoarthritis of right foot Right ankle joint deformity Right flank pain RLS (restless legs syndrome) Stress fracture, unspec
[2022-07-08] MEDS: ceFAZolin 2 GM/D5W 50 ML 2 GM/50 ML BAG IVPB (08:27)
[2022-07-08] MEDS: BUPIVACAINE HCL 0.5% PF 30 ML VIAL INFILTRATE (10:37)
--- NOTE | 2022-07-08 10:58 | W.PM.PROC2 ---
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 Status post triple arthrodesis left side. Now with pain on the lateral border of the foot and residual deformity. Painful hardware. Presents for operative treatment. Description of Procedure Patient identified in the preoperative holding. Informed consent given. Operative extremity marked. Patient received intravenous antibiotics. Patient brought to the operating room where underwent general anesthetic by anesthesia team. Positioned supine on operating room table. Time-out performed confirming the patient, site of the surgery and the plan. A bump placed under the left hip. Left lower extremity then prepped draped usual sterile surgical fashion using a ChloraPrep skin solution. Foot and ankle exsanguinated and a thigh tourniquet inflated to 250 mmHg. Oblique incision made from the tip of the fibula to the base of the 4th metatarsal with a 15 blade knife. Hemostasis controlled electrocautery. Fasciotomy in line with the skin incision over the calcaneocuboid arthrodesis. Staple present and removed. Medial talonavicular previous incision utilized with 15 blade knife. Hemostasis controlled electrocautery. Fascia incised in line with skin incision. Dissection carried down to the talar navicular arthrodesis. Cannulated screw and staple present and removed. Posterior calcaneus incision made in line with the leg with 15 blade knife. Dissection carried calcaneus and the 2 headless cannulated screws located and with screw motor vehicle escort driver fluoroscopic guidance. This completed the removal of the hardware. Osteotomy of the lateral calcaneus was then performed. Incision made obliquely over the lateral tuberosity with a 15 blade knife. Hemostasis control electrocautery. Neurovascular elements protected. Lateral calcaneus exposed and the osteotomy performed from lateral to medial with saw and osteotomes. Posterior calcaneal tuberosity then translated laterally provisionally pinned injected image intensification. The varus alignment was reduced into approximately 5? of valgus. Fixation achieved with a 4.5 mm cannulated screw. Image intensification confirmed placement. Wounds irrigated and the fascia over the calcaneus repaired with 3-0 Monocryl interrupted suture. Subcutaneous tissue repaired with 3-0 Monocryl interrupted suture and the skin repaired with 4-0 nylon running suture for the posterior calcaneus and lateral calcaneal incisions. Attention then turned to the midfoot osteotomy. Guide pin was placed from medial to lateral at the osteotomy site and verified with image intensification. Soft tissue elevated dorsal and plantar word and retractors placed. Osteotomy was then performed with sagittal saw from medial to lateral and completed laterally with osteotomes. This was through the previous transverse talar arthrodesis site. This allowed the forefoot to then be rotated out of varus and into neutral. This was provisionally pinned in checked with image intensification. Simulated weight-bearing performed with image intensification and alignment noted to be good. Fixation achieved with to 5.0 mm cannulated screws 1 placed medially and 1 placed laterally. Wounds thoroughly irrigated and the medial and lateral fascia repaired with 3-0 Monocryl interrupted suture. Subcutaneous tissue bear to 3-0 Monocryl interrupted suture and skin repaired 4-0 nylon running suture. Tourniquet was released prior to closure and any bleeding points were coagulated. Sterile dressing applied. Well-padded short-leg Splint applied. The patient was then woken from anesthesia, extubated and ta
== END 2022-07-08 12:55 | disposition home or self-care (01) ==
PROVIDERS: PCP Internal Medicine; Visit Provider Orthopaedic Surgery
PROC: (CPT 28300; principal; 2022-07-08 09:00)
PROC: (CPT 28750; 2022-07-08 09:00)
DX: T84.84XA Pain due to internal orthopedic prosthetic devices, implants and grafts, initial encounter (principal); M79.672 Pain in left foot; M19.072 Primary osteoarthritis, left ankle and foot; M21.42 Flat foot [pes planus] (acquired), left foot; Y83.8 Other surgical procedures as the cause of abnormal reaction of the patient, or of later complication, without mention of misadventure at the time of the procedure; D68.51 Activated protein C resistance; I10 Essential (primary) hypertension; E78.5 Hyperlipidemia, unspecified; R73.03 Prediabetes; G25.81 Restless legs syndrome; E66.9 Obesity, unspecified; Z68.29 Body mass index [BMI] 29.0-29.9, adult; Z79.811 Long term (current) use of aromatase inhibitors; Z79.82 Long term (current) use of aspirin
CPT/HCPCS: 28300; 28302; 20680; 93005; 99199; A9270; C1769; J0690; J1100; J1200; J1885; J2250; J2405; J2704; J3010; J7120

== ENCOUNTER 2022-07-21 10:31 | Outpatient (CLI) | payer OTHER, SELFPAY ==
[2022-07-21 11:13] LABS: Anion Gap 2 mmol/L (8-16); Blood Urea Nitrogen 24 mg/dL (7-17); Calcium 9.6 mg/dL (8.4-10.2); Carbon Dioxide 30 mmol/L (22-30); Chloride 102 mmol/L (98-107); Estimated Glomerular Filt Rate > 60; Glucose 94 mg/dL (65-110); Potassium 3.6 mmol/L (3.4-5.0); Sodium 134 mmol/L (137-145)
== END 2022-07-21 10:32 | disposition home or self-care (01) ==
LOC: ANHLAB 10:32
PROVIDERS: PCP Internal Medicine; Visit Provider Internal Medicine
DX: E87.6 Hypokalemia (principal)
CPT/HCPCS: 36415; 80048; 99212; G0463

== ENCOUNTER 2022-09-06 14:24 | Outpatient (CLI) | payer OTHER, SELFPAY ==
[2022-09-06 15:11] LABS: Basophils Absolute Auto 0.1 K/mm3 (0.0-0.1); Basophils Percent Auto 0.5 % (0.2-1.2); Eosinophils Absolute Auto 0.5 K/mm3 (0-0.3); Eosinophils Percent Auto 4.6 % (0-4.4); Hematocrit 40.8 % (37.0-47.0); Hemoglobin 13.3 g/dL (12.0-15.0); Immature Granulocyte Absolute 0.04 K/mm3 (0.00-0.031); Immature Granulocyte Percent A 0.4 % (0-0.5); Lymphocytes Absolute Auto 0.84 K/mm3 (0.9-3.2); Lymphocytes Percent Auto 8.1 % (18.3-44.2); Mean Corpuscular HGB Conc 32.6 g/dl (32-36); Mean Corpuscular Hemoglobin 28.7 pg (26-34); Mean Corpuscular Volume 88.1 fl (80-100); Mean Platelet Volume 10.8 fl (7.4-10.4); Monocytes Absolute Auto 0.7 K/mm3 (0.1-0.6); Monocytes Percent Auto 6.5 % (2.6-8.5); Neutrophils Absolute Auto 8.3 K/mm3 (1.3-6.7); Neutrophils Percent Auto 79.9 % (45.5-73.1); Platelet Count Result 239 k/mm3 (150-375); Red Blood Count 4.63 M/mm3 (4.2-5.4); Red Cell Distribution Width 14.1 % (11.5-14.5); White Blood Count 10.4 K/mm3 (4.5-10.0)
[2022-09-06 15:27] LABS: Prothrombin Time 12.5 Seconds (11.1-14.7)
[2022-09-06 15:28] LABS: Partial Thromboplastin Time 25.1 SECONDS (22.3-36.8)
== END 2022-09-06 14:25 | disposition home or self-care (01) ==
LOC: ANHLAB 14:25
PROVIDERS: PCP Internal Medicine; Visit Provider Internal Medicine
DX: R23.8 Other skin changes (principal); D68.51 Activated protein C resistance; M79.89 Other specified soft tissue disorders; Z79.899 Other long term (current) drug therapy
CPT/HCPCS: 36415; 76882; 85025; 85610; 85730; 93971; 99212; G0463

== ENCOUNTER 2022-09-06 15:30 | Outpatient (CLI) | payer OTHER, SELFPAY ==
--- NOTE | ~2022-09-06 | US_ITS ---
EXAMINATION: US soft tissue UE LT DATE: 09/06/2022 16:40 INDICATION: Localized swelling, mass and lump, left forearm. TECHNIQUE: Multiple grayscale and Doppler ultrasound images of the left upper limb were obtained. COMPARISON: None FINDINGS: In the patient's area of concern in the left forearm, there is hyperechoic subcutaneous fat . No abscess. IMPRESSION: 1. Hyperechoic subcutaneous fat in the left forearm, consistent with inflammation. No abscess. Reviewed, dictated and finalized at location A. OMER ADVISOR IMPRESSION: 1. Hyperechoic subcutaneous fat in the left forearm, consistent with inflammati on. No abscess.
--- NOTE | ~2022-09-06 | US_ITS ---
EXAMINATION: US venous doppler [facility] DATE: 09/06/2022 16:42 INDICATION: Left upper limb pain. TECHNIQUE: Grayscale ultrasound images without and with compression and Doppler ultrasound images of the left upper extremity veins were obtained. COMPARISON: None. FINDINGS: The visualized portions of the left internal jugular vein, subclavian vein, axillary vein, brachial v eins, basilic vein, cephalic vein, radial vein, and ulnar vein are patent. IMPRESSION: 1. No deep venous thrombosis. Reviewed, dictated and finalized at location A. CTOR OF CAPITAL GIVING
== END 2022-09-06 15:31 | disposition home or self-care (01) ==
PROVIDERS: PCP Internal Medicine; Visit Provider Internal Medicine
DX: R23.8 Other skin changes (principal); R22.30 Localized swelling, mass and lump, unspecified upper limb; M79.89 Other specified soft tissue disorders; M79.602 Pain in left arm
CPT/HCPCS: 76882; 93971

== ENCOUNTER 2022-10-26 11:03 | Outpatient (CLI) | payer OTHER, SELFPAY ==
[2022-10-26 11:40] LABS: Alanine Aminotransferase 18 U/L (6-35); Albumin Level 3.9 g/dL (3.5-5.1); Alkaline Phosphatase 109 U/L (38-126); Anion Gap 2 mmol/L (8-16); Aspartate Amino Transferase 26 U/L (14-36); Blood Urea Nitrogen 22 mg/dL (7-17); Calcium 9.6 mg/dL (8.4-10.2); Carbon Dioxide 33 mmol/L (22-30); Chloride 104 mmol/L (98-107); Cholesterol 189 mg/dL (0-200); Estimated Glomerular Filt Rate > 60; Glucose 89 mg/dL (65-110); HDL Direct 79 mg/dL; Potassium 3.9 mmol/L (3.4-5.0); Sodium 139 mmol/L (137-145); Triglycerides 91 mg/dL (<150)
[2022-10-26 11:41] LABS: Hemoglobin A1C 5.6 % (<5.7)
[2022-10-26 11:51] LABS: LDL Cholesterol Direct 75 mg/dL
[2022-10-26 12:09] LABS: Thyroid Stimulating Hormone 0.783 uIU/mL (0.465-4.680)
[2022-10-26 12:10] LABS: Free T4 Free Thyroxine 1.25 ng/mL (0.78-2.19)
== END 2022-10-26 11:04 | disposition home or self-care (01) ==
LOC: ANHLAB 11:04
PROVIDERS: PCP Internal Medicine; Visit Provider Internal Medicine
DX: R73.09 Other abnormal glucose (principal); I10 Essential (primary) hypertension; Z79.899 Other long term (current) drug therapy; Z13.29 Encounter for screening for other suspected endocrine disorder; E78.5 Hyperlipidemia, unspecified
CPT/HCPCS: 36415; 80053; 80061; 83036; 84439; 84443; 99212; G0463

== ENCOUNTER 2022-12-07 11:20 | Outpatient (CLI) | payer OTHER, SELFPAY ==
[2022-12-07 12:00] LABS: Basophils Percent Auto 0.8 % (0.2-1.2); Eosinophils Absolute Auto 0.3 K/mm3 (0-0.3); Eosinophils Percent Auto 6.4 % (0-4.4); Hematocrit 39.6 % (37.0-47.0); Hemoglobin 12.5 g/dL (12.0-15.0); Immature Granulocyte Absolute 0.02 K/mm3 (0.00-0.031); Immature Granulocyte Percent A 0.4 % (0-0.5); Lymphocytes Absolute Auto 1.09 K/mm3 (0.9-3.2); Mean Corpuscular HGB Conc 31.6 g/dl (32-36); Mean Corpuscular Hemoglobin 27.6 pg (26-34); Mean Corpuscular Volume 87.4 fl (80-100); Mean Platelet Volume 10.4 fl (7.4-10.4); Monocytes Absolute Auto 0.4 K/mm3 (0.1-0.6); Monocytes Percent Auto 6.7 % (2.6-8.5); Neutrophils Absolute Auto 3.4 K/mm3 (1.3-6.7); Neutrophils Percent Auto 64.7 % (45.5-73.1); Platelet Count Result 254 k/mm3 (150-375); Red Blood Count 4.53 M/mm3 (4.2-5.4); Red Cell Distribution Width 14.7 % (11.5-14.5); White Blood Count 5.2 K/mm3 (4.5-10.0)
[2022-12-07 12:06] LABS: Alanine Aminotransferase 20 U/L (6-35); Albumin Level 3.6 g/dL (3.5-5.1); Alkaline Phosphatase 92 U/L (38-126); Anion Gap 0 mmol/L (8-16); Aspartate Amino Transferase 27 U/L (14-36); Blood Urea Nitrogen 23 mg/dL (7-17); Calcium 9.3 mg/dL (8.4-10.2); Carbon Dioxide 31 mmol/L (22-30); Chloride 107 mmol/L (98-107); Estimated Glomerular Filt Rate > 60; Glucose 94 mg/dL (65-110); Potassium 3.8 mmol/L (3.4-5.0); Sodium 138 mmol/L (137-145)
[2022-12-11 05:09] LABS: CA 15-3 14 U/mL (<32)
== END 2022-12-07 11:21 | disposition home or self-care (01) ==
LOC: ANHLAB 11:22
PROVIDERS: PCP Internal Medicine; Visit Provider Internal Medicine Hematology & Oncology
DX: C50.411 Malignant neoplasm of upper-outer quadrant of right female breast (principal); Z17.0 Estrogen receptor positive status [ER+]
CPT/HCPCS: 36415; 80053; 85025; 86300; 99212; G0463

== ENCOUNTER 2023-03-15 10:51 | Outpatient (CLI) | payer OTHER, SELFPAY ==
[2023-03-15 11:41] LABS: Alanine Aminotransferase 19 U/L (6-35); Albumin Level 3.8 g/dL (3.5-5.1); Alkaline Phosphatase 105 U/L (38-126); Anion Gap 0 mmol/L (8-16); Aspartate Amino Transferase 27 U/L (14-36); Bilirubin,Total 0.8 mg/dL (0.2-1.3); Blood Urea Nitrogen 23 mg/dL (7-17); Calcium 9.5 mg/dL (8.4-10.2); Carbon Dioxide 33 mmol/L (22-30); Chloride 106 mmol/L (98-107); Cholesterol 208 mg/dL (0-200); Estimated Glomerular Filt Rate > 60; Glucose 95 mg/dL (65-110); HDL Direct 86 mg/dL; Potassium 4.1 mmol/L (3.4-5.0); Sodium 139 mmol/L (137-145); Triglycerides 73 mg/dL (<150)
[2023-03-15 11:52] LABS: LDL Cholesterol Direct 89 mg/dL
[2023-03-15 12:11] LABS: Thyroid Stimulating Hormone 0.832 uIU/mL (0.465-4.680)
[2023-03-15 12:16] LABS: Free T4 Free Thyroxine 1.28 ng/mL (0.78-2.19)
[2023-03-15 12:38] LABS: Hemoglobin A1C 5.6 % (<5.7)
[2023-03-15 13:05] LABS: Folic Acid > 20.0 ng/mL (2.76->20); Vitamin B12 > 1000.0 pg/mL (239-931)
== END 2023-03-15 10:52 | disposition home or self-care (01) ==
LOC: ANHLAB 10:52
PROVIDERS: PCP Internal Medicine; Visit Provider Internal Medicine
DX: R73.03 Prediabetes (principal); E78.5 Hyperlipidemia, unspecified; I10 Essential (primary) hypertension; R94.6 Abnormal results of thyroid function studies; R79.89 Other specified abnormal findings of blood chemistry; Z79.899 Other long term (current) drug therapy
CPT/HCPCS: 36415; 80053; 80061; 82607; 82746; 83036; 84439; 84443; 99212; G0463

== ENCOUNTER 2023-06-14 10:42 | Outpatient (CLI) | payer OTHER, SELFPAY ==
[2023-06-14 11:19] LABS: Basophils Absolute Auto 0.1 K/mm3 (0.0-0.1); Basophils Percent Auto 1.3 % (0.2-1.2); Eosinophils Absolute Auto 0.6 K/mm3 (0-0.3); Eosinophils Percent Auto 12.7 % (0-4.4); Hematocrit 39.2 % (37.0-47.0); Hemoglobin 12.6 g/dL (12.0-15.0); Immature Granulocyte Absolute 0.01 K/mm3 (0.00-0.031); Immature Granulocyte Percent A 0.2 % (0-0.5); Lymphocytes Absolute Auto 1.31 K/mm3 (0.9-3.2); Lymphocytes Percent Auto 28.1 % (18.3-44.2); Mean Corpuscular HGB Conc 32.1 g/dl (32-36); Mean Corpuscular Hemoglobin 27.9 pg (26-34); Mean Corpuscular Volume 86.9 fl (80-100); Mean Platelet Volume 10.6 fl (7.4-10.4); Monocytes Absolute Auto 0.4 K/mm3 (0.1-0.6); Monocytes Percent Auto 8.4 % (2.6-8.5); Neutrophils Absolute Auto 2.3 K/mm3 (1.3-6.7); Neutrophils Percent Auto 49.3 % (45.5-73.1); Platelet Count Result 245 k/mm3 (150-375); Red Blood Count 4.51 M/mm3 (4.2-5.4); Red Cell Distribution Width 14.2 % (11.5-14.5); White Blood Count 4.7 K/mm3 (4.5-10.0)
[2023-06-14 11:42] LABS: Alanine Aminotransferase 19 U/L (6-35); Albumin Level 3.9 g/dL (3.5-5.1); Alkaline Phosphatase 106 U/L (38-126); Anion Gap 3 mmol/L (8-16); Aspartate Amino Transferase 29 U/L (14-36); Bilirubin,Total 0.9 mg/dL (0.2-1.3); Blood Urea Nitrogen 19 mg/dL (7-17); Calcium 9.9 mg/dL (8.4-10.2); Carbon Dioxide 29 mmol/L (22-30); Chloride 107 mmol/L (98-107); Estimated Glomerular Filt Rate > 60; Glucose 96 mg/dL (65-110); Sodium 139 mmol/L (137-145)
[2023-06-17 06:07] LABS: CA 15-3 13 U/mL (<32)
== END 2023-06-14 10:43 | disposition home or self-care (01) ==
LOC: ANHLAB 10:44
PROVIDERS: PCP Internal Medicine; Visit Provider Internal Medicine Hematology & Oncology
DX: C50.411 Malignant neoplasm of upper-outer quadrant of right female breast (principal); Z17.0 Estrogen receptor positive status [ER+]
CPT/HCPCS: 36415; 80053; 85025; 86300; 99212; G0463

== ENCOUNTER → 2023-07-08 12:26 | Outpatient (CLI) | payer OTHER, SELFPAY ==
--- NOTE | ~2023-07-08 | XR_ITS ---
EXAMINATION: XR thoracic spine 3V DATE: 07/08/2023 12:59 INDICATION: Thoracic back pain TECHNIQUE: AP, lateral and lateral swimmer's views of the thoracic spine were obtained. COMPARISON: 05/11/2022 FINDINGS: There is lower thoracic levocurvature without significant change. Thoracolumbar dextroscoli osis is again noted. The vertebral body heights are maintained. There is moderate loss of interverteb ral disc space height at multiple levels in the lower thoracic spine. There is no fracture. Bone alig nment is normal. IMPRESSION: 1. Lower thoracic and thoracolumbar scoliosis without significant change. 2. Moderate thoracic spondylosis without acute findings. Reviewed, dictated and finalized at location B. OL GUARD
--- NOTE | ~2023-07-08 | XR_ITS ---
EXAMINATION: XR lumbar spine 2-3V DATE: 07/08/2023 12:59 INDICATION: Lumbar radiculopathy TECHNIQUE: Anteroposterior and lateral views of the lumbar spine, and cone-down lateral view of the l umbosacral junction were obtained. COMPARISON: 11/24/2021 FINDINGS: There is a partially imaged thoracolumbar scoliosis. There is severe loss of intervertebral disc space height at L1-2, L3-4, and L4-5. The vertebral body heights are maintained. No fracture is identified. There is severe facet joint osteoarthritis throughout the lumbar spine. IMPRESSION: 1. Severe lumbar spondylosis without acute findings or significant interval change. Reviewed, dictated and finalized at location B. INSULATOR IMPRESSION: 1. Severe lumbar spondylosis without acute findings or significant interval christopher nge.
== END ==
PROVIDERS: PCP Pain Medicine Interventional Pain Medicine; Visit Provider Pain Medicine Interventional Pain Medicine
DX: M41.84 Other forms of scoliosis, thoracic region (principal); M41.85 Other forms of scoliosis, thoracolumbar region; G89.4 Chronic pain syndrome; M43.06 Spondylolysis, lumbar region
CPT/HCPCS: 72072; 72100

== ENCOUNTER 2023-08-02 11:05 | Outpatient (CLI) | payer OTHER, SELFPAY ==
[2023-08-02 11:37] LABS: Basophils Percent Auto 0.5 % (0.2-1.2); Eosinophils Absolute Auto 0.2 K/mm3 (0-0.3); Eosinophils Percent Auto 4.9 % (0-4.4); Hematocrit 42.4 % (37.0-47.0); Hemoglobin 13.6 g/dL (12.0-15.0); Immature Granulocyte Absolute 0.01 K/mm3 (0.00-0.031); Immature Granulocyte Percent A 0.3 % (0-0.5); Lymphocytes Absolute Auto 1.45 K/mm3 (0.9-3.2); Lymphocytes Percent Auto 37.8 % (18.3-44.2); Mean Corpuscular HGB Conc 32.1 g/dl (32-36); Mean Corpuscular Hemoglobin 28.1 pg (26-34); Mean Corpuscular Volume 87.6 fl (80-100); Mean Platelet Volume 10.5 fl (7.4-10.4); Monocytes Absolute Auto 0.3 K/mm3 (0.1-0.6); Monocytes Percent Auto 8.9 % (2.6-8.5); Neutrophils Absolute Auto 1.8 K/mm3 (1.3-6.7); Neutrophils Percent Auto 47.6 % (45.5-73.1); Platelet Count Result 193 k/mm3 (150-375); Red Blood Count 4.84 M/mm3 (4.2-5.4); White Blood Count 3.8 K/mm3 (4.5-10.0)
[2023-08-02 11:44] LABS: Alanine Aminotransferase 76 U/L (6-35); Alkaline Phosphatase 101 U/L (38-126); Anion Gap 3 mmol/L (8-16); Aspartate Amino Transferase 73 U/L (14-36); Blood Urea Nitrogen 25 mg/dL (7-17); Calcium 9.3 mg/dL (8.4-10.2); Carbon Dioxide 32 mmol/L (22-30); Chloride 107 mmol/L (98-107); Cholesterol 209 mg/dL (0-200); Estimated Glomerular Filt Rate > 60; Glucose 86 mg/dL (65-110); HDL Direct 77 mg/dL; Potassium 3.8 mmol/L (3.4-5.0); Sodium 142 mmol/L (137-145); Triglycerides 78 mg/dL (<150)
[2023-08-02 11:55] LABS: LDL Cholesterol Direct 89 mg/dL
[2023-08-02 12:15] LABS: Thyroid Stimulating Hormone 0.757 uIU/mL (0.465-4.680)
[2023-08-02 15:39] LABS: Free T4 Free Thyroxine 1.35 ng/mL (0.78-2.19); Vitamin D 25 Hydroxy 42.4 ng/mL
[2023-08-02 16:59] LABS: Hepatitis B Surface Antigen Negative (Negative)
[2023-08-02 17:05] LABS: HAV RESULT Negative (Negative); Hepatitis B Core IgM Result Negative (Negative)
[2023-08-02 17:17] LABS: Hepatitis C Virus Antibody Negative (Negative)
[2023-08-04 19:29] LABS: GGT 35 U/L (3-65)
== END 2023-08-02 11:06 | disposition home or self-care (01) ==
LOC: ANHLAB 11:06
PROVIDERS: PCP Pain Medicine Interventional Pain Medicine; Visit Provider Internal Medicine
DX: E55.9 Vitamin D deficiency, unspecified (principal); I10 Essential (primary) hypertension; R94.6 Abnormal results of thyroid function studies; R73.03 Prediabetes; E78.5 Hyperlipidemia, unspecified; R74.8 Abnormal levels of other serum enzymes
CPT/HCPCS: 36415; 80053; 80061; 80074; 82306; 82977; 83036; 84439; 84443; 85025; 99212; G0463

== ENCOUNTER → 2023-08-06 08:08 | Outpatient (CLI) | payer OTHER, SELFPAY ==
--- NOTE | ~2023-08-06 | US_ITS ---
US abdomen limited INDICATION: Elevated liver function tests PROCEDURE: Realtime right upper abdominal ultrasound. COMPARISON: No prior studies for comparison. FINDINGS: The pancreas is normal without focal mass or pancreatic ductal dilation. Liver echotexture is normal without focal mass or intrahepatic biliary dilatation. There is normal directional flow i n the portal vein. Gallbladder is surgically absent. Common bile duct measures 6 mm. IMPRESSION: 1: Normal limited abdominal ultrasound. Reviewed, dictated and finalized at location A. OLEUM REFINERY WORKER
== END ==
PROVIDERS: PCP Internal Medicine Hematology & Oncology; Visit Provider Internal Medicine
DX: R79.89 Other specified abnormal findings of blood chemistry (principal)
CPT/HCPCS: 76705

== ENCOUNTER 2023-09-06 10:44 | Outpatient (CLI) | payer OTHER, SELFPAY ==
[2023-09-06 11:48] LABS: Alanine Aminotransferase 16 U/L (6-35); Albumin Level 3.7 g/dL (3.5-5.1); Alkaline Phosphatase 114 U/L (38-126); Aspartate Amino Transferase 26 U/L (14-36); Bilirubin,Total 0.6 mg/dL (0.2-1.3)
== END 2023-09-06 10:45 | disposition home or self-care (01) ==
PROVIDERS: PCP Internal Medicine Hematology & Oncology; Visit Provider Internal Medicine
DX: R79.89 Other specified abnormal findings of blood chemistry (principal)
CPT/HCPCS: 36415; 80076; 99212; G0463

== ENCOUNTER 2023-12-13 10:58 | Outpatient (CLI) | payer OTHER, SELFPAY ==
[2023-12-13 12:10] LABS: Basophils Percent Auto 0.7 % (0.2-1.2); Eosinophils Absolute Auto 0.6 K/mm3 (0-0.3); Eosinophils Percent Auto 12.5 % (0-4.4); Hematocrit 39.3 % (37.0-47.0); Hemoglobin 12.4 g/dL (12.0-15.0); Immature Granulocyte Absolute 0.01 K/mm3 (0.00-0.031); Immature Granulocyte Percent A 0.2 % (0-0.5); Lymphocytes Absolute Auto 1.36 K/mm3 (0.9-3.2); Lymphocytes Percent Auto 29.8 % (18.3-44.2); Mean Corpuscular HGB Conc 31.6 g/dl (32-36); Mean Corpuscular Hemoglobin 28.2 pg (26-34); Mean Corpuscular Volume 89.3 fl (80-100); Mean Platelet Volume 10.8 fl (7.4-10.4); Monocytes Absolute Auto 0.3 K/mm3 (0.1-0.6); Monocytes Percent Auto 6.6 % (2.6-8.5); Neutrophils Absolute Auto 2.3 K/mm3 (1.3-6.7); Neutrophils Percent Auto 50.2 % (45.5-73.1); Platelet Count Result 250 k/mm3 (150-375); Red Cell Distribution Width 14.2 % (11.5-14.5); White Blood Count 4.6 K/mm3 (4.5-10.0)
[2023-12-13 12:23] LABS: Alanine Aminotransferase 16 U/L (6-35); Albumin Level 3.8 g/dL (3.5-5.1); Alkaline Phosphatase 109 U/L (38-126); Anion Gap 0 mmol/L (4-12); Aspartate Amino Transferase 26 U/L (14-36); Bilirubin,Total 0.7 mg/dL (0.2-1.3); Blood Urea Nitrogen 23 mg/dL (7-17); Calcium 9.6 mg/dL (8.4-10.2); Carbon Dioxide 30 mmol/L (22-30); Chloride 109 mmol/L (98-107); Cholesterol 185 mg/dL (0-200); Estimated Glomerular Filt Rate > 60; Glucose 88 mg/dL (65-110); HDL Direct 83 mg/dL; Potassium 3.8 mmol/L (3.4-5.0); Sodium 139 mmol/L (137-145); Triglycerides 71 mg/dL (<150)
[2023-12-13 12:24] LABS: Alanine Aminotransferase 16 U/L (6-35); Albumin Level 3.8 g/dL (3.5-5.1); Alkaline Phosphatase 108 U/L (38-126); Anion Gap 4 mmol/L (4-12); Aspartate Amino Transferase 26 U/L (14-36); Bilirubin,Total 0.7 mg/dL (0.2-1.3); Blood Urea Nitrogen 23 mg/dL (7-17); Calcium 9.5 mg/dL (8.4-10.2); Carbon Dioxide 29 mmol/L (22-30); Chloride 107 mmol/L (98-107); Estimated Glomerular Filt Rate > 60; Glucose 87 mg/dL (65-110); Potassium 3.7 mmol/L (3.4-5.0); Sodium 140 mmol/L (137-145)
[2023-12-13 12:31] LABS: Hemoglobin A1C 5.5 % (<5.7)
[2023-12-13 12:34] LABS: LDL Cholesterol Direct 79 mg/dL
[2023-12-13 12:55] LABS: Free T4 Free Thyroxine 1.16 ng/mL (0.78-2.19)
[2023-12-14 16:09] LABS: CA 15-3 14 U/mL (<32)
== END 2023-12-13 10:59 | disposition home or self-care (01) ==
PROVIDERS: PCP Internal Medicine Hematology & Oncology; Visit Provider Internal Medicine
DX: C50.411 Malignant neoplasm of upper-outer quadrant of right female breast (principal); Z17.0 Estrogen receptor positive status [ER+]; R94.6 Abnormal results of thyroid function studies; E78.5 Hyperlipidemia, unspecified; R73.03 Prediabetes; I10 Essential (primary) hypertension
CPT/HCPCS: 36415; 80053; 80061; 83036; 84439; 84443; 85025; 86300; 99212; G0463

== ENCOUNTER 2023-12-20 10:12 | Outpatient (CLI) | payer OTHER, SELFPAY ==
--- NOTE | ~2023-12-20 | MM_ITS ---
EXAMINATION: MM screening bandar LT w karon HISTORY: Screening. The right breast is surgically absent. TECHNIQUE: Craniocaudal and mediolateral oblique 3-D tomosynthesis images were obtained and synthetic 2-D images were generated. CAD analysis was submitted and interpreted. COMPARISON: Comparison to multiple prior studies sequentially, with oldest reviewed study dated 11/26. BREAST PARENCHYMAL COMPOSITION: Not dense: There are scattered areas of fibroglandular density. FINDINGS: There is developing increased density and nodules in the upper central left breast. There a re tissue marker from previous benign left breast biopsy. There are benign-appearing left breast calc ifications. IMPRESSION: 1. Increasing density nodules centered in the upper central aspect of the left breast. 2. Additional mammographic views and possible breast ultrasound are recommended. BI-RADS Category 0: Incomplete: Needs additional imaging evaluation. Reviewed, dictated and finalized at location B. IMPRESSION: 1. Increasing density nodules centered in the upper central aspect of the left breast. 2. Additional mammographic views and possible breast ultrasound are recommended . BI-RADS Category 0: Incomplete: Needs additional imaging evaluation.
--- NOTE | ~2023-12-20 | DEXA_ITS ---
Bone Density Report Name: JOHN ZAVALA Age: 63 Sex: Female Ethnicity: White Date of : 1960 Indication: postmenopausal; screening for osteoporosis; height loss; history of glucocorticoids; prior fracture; cancer; hysterectomy; Referring Provider: SHERLEY CIFUENTES Study: Bone densitometry was performed. Exam Date: December 20, 2023 Accession number: [id number] Bone Density: Region BMD T-score Z-score Classification AP Spine(L1-L4) 1.230 1.7 3.2 Normal Femoral Neck (Left) 0.711 -1.2 0.1 Osteopenia Total Hip (Left) 0.956 0.1 1.1 Normal Femoral Neck (Right) 0.640 -1.9 -0.5 Osteopenia Total Hip (Right) 0.904 -0.3 0.7 Normal Total Hip Mean 0.930 -0.1 0.9 Normal World Health Organization criteria for BMD impression classify patients as: Normal (T-score at or above -1.0), Osteopenia (T-score between -1.0 and -2.5), or Osteoporosis (T-score at or below -2.5). 10-year Fracture Risk(1): Major Osteoporotic Fracture 24% Hip Fracture 3.3% Reported Risk Factors: [place] (), Neck BMD=0.640, BMI=30.1, previous fracture, glucocorticoids (1) FRAX(R) Version 3.08. Fracture probability calculated for an untreated patient. Fracture probability may be lower if the patient has received treatment. Previous Exams: Region Exam Age BMD T-score BMD Change BMD Change Date g/cm2 vs Baseline vs Previous AP Spine (L1-L4) 12/20/2023 63 1.230 1.7 -0.045 (-3.5%) -0.045 (-3.5%) 05/18/2022 61 1.275 2.1 Total Hip(Left) 12/20/2023 63 0.956 0.1 -0.045 (-4.5%) 0.035 (3.8%)* 05/18/2022 61 0.921 -0.2 -0.080 (-8.0%) -0.053 (-5.5%) 04/29/2020 59 0.974 0.3 -0.027 (-2.7%) -0.027 (-2.7%) 02/07/2018 57 1.001 0.5 Total Hip(Right) 12/20/2023 63 0.904 -0.3 -0.053 (-5.5%) 0.006 (0.6%) 05/18/2022 61 0.898 -0.4 -0.058 (-6.1%) -0.005 (-0.5%) 04/29/2020 59 0.903 -0.3 -0.053 (-5.6%) -0.053 (-5.6%) 02/07/2018 57 0.957 0.1 *Denotes significance at 95% confidence level, LSC for AP Spine = 0.022 g/cm2, LSC for Total Hip = 0.027 g/cm2 Clinical Information Provided by Patient: Has had a low trauma fracture Has taken Glucocorticoids Has used the following medications: Vitamin D, Calcium Has the following medical conditions: Cancer, Hysterectomy Patient maximum height was 63.5 Menopause Age: 43 No regular weight bearing exercise Does not regularly consume dairy products Drinks caffeinated beverages Onset of menses at age 13 Number of children 2
== END 2023-12-20 10:13 | disposition home or self-care (01) ==
PROVIDERS: PCP Internal Medicine Hematology & Oncology; Visit Provider Obstetrics & Gynecology
DX: Z12.31 Encounter for screening mammogram for malignant neoplasm of breast (principal); Z78.0 Asymptomatic menopausal state; Z13.820 Encounter for screening for osteoporosis; R92.8 Other abnormal and inconclusive findings on diagnostic imaging of breast; M85.852 Other specified disorders of bone density and structure, left thigh; M85.851 Other specified disorders of bone density and structure, right thigh
CPT/HCPCS: 77063; 77067; 77080

== ENCOUNTER 2024-01-04 12:26 | Outpatient (CLI) | payer OTHER, SELFPAY ==
--- NOTE | ~2024-01-04 | MMUS_ITS ---
EXAMINATION: MM diagnostic bandar LT w karon, US breast LT limited HISTORY: Left breast mass TECHNIQUE: Additional 3-D tomosynthesis images of the left breast were performed and synthetic 2-D im ages were generated. CAD analysis was submitted and interpreted. High resolution limited left breast ultrasound was performed. COMPARISON: 12/20/2023, 12/14/2022, 12/15/2021, 12/10/2020 FINDINGS: MAMMOGRAPHIC FINDINGS: There are scattered areas of fibroglandular density. Spot compression views demonstrate a persistent ovoid 1.1 cm mass at the 11:00-12:00 position left br east. There is also probable reniform lymph node at the upper, slightly outer left breast. ULTRASOUND: The left breast 3:00 position, 7 cm from the nipple, there is a reniform intramammary lymph node with hypoechoic cortex and fatty hilum. At the left breast subareolar region, there is a 1.1 cm anechoic wider than tall circumscribed simple cyst with posterior through transmission. No suspicious sonograp hic lesion identified. IMPRESSION: No evidence for malignancy. Benign left intramammary lymph node and left renal cyst, as detailed abo ve. BI-RADS Category 2: Benign finding(s). Reviewed, dictated and finalized at location M. IMPRESSION: No evidence for malignancy. Benign left intramammary lymph node and left renal cyst, as detailed above. BI-RADS Category 2: Benign finding(s).
== END 2024-01-04 12:27 | disposition home or self-care (01) ==
PROVIDERS: PCP Internal Medicine; Visit Provider Internal Medicine Hematology & Oncology
DX: R92.8 Other abnormal and inconclusive findings on diagnostic imaging of breast (principal)
CPT/HCPCS: 76642; 77061; 77065; G0279

== ENCOUNTER 2024-05-21 10:26 | Outpatient (CLI) | payer OTHER, SELFPAY ==
[2024-05-21 11:13] LABS: Basophils Absolute Auto 0.1 K/mm3 (0.0-0.1); Basophils Percent Auto 1.3 % (0.2-1.2); Eosinophils Absolute Auto 0.5 K/mm3 (0-0.3); Eosinophils Percent Auto 11.9 % (0-4.4); Hematocrit 38.2 % (37.0-47.0); Hemoglobin 12.3 g/dL (12.0-15.0); Immature Granulocyte Absolute 0.01 K/mm3 (0.00-0.031); Immature Granulocyte Percent A 0.2 % (0-0.5); Lymphocytes Absolute Auto 1.23 K/mm3 (0.9-3.2); Lymphocytes Percent Auto 27.5 % (18.3-44.2); Mean Corpuscular HGB Conc 32.2 g/dl (32-36); Mean Corpuscular Hemoglobin 28.2 pg (26-34); Mean Corpuscular Volume 87.6 fl (80-100); Mean Platelet Volume 10.4 fl (7.4-10.4); Monocytes Absolute Auto 0.4 K/mm3 (0.1-0.6); Monocytes Percent Auto 7.8 % (2.6-8.5); Neutrophils Absolute Auto 2.3 K/mm3 (1.3-6.7); Neutrophils Percent Auto 51.3 % (45.5-73.1); Platelet Count Result 295 k/mm3 (150-375); Red Blood Count 4.36 M/mm3 (4.2-5.4); Red Cell Distribution Width 14.6 % (11.5-14.5); White Blood Count 4.5 K/mm3 (4.5-10.0)
[2024-05-21 12:00] LABS: Alanine Aminotransferase 16 U/L (6-35); Albumin Level 3.5 g/dL (3.5-5.1); Alkaline Phosphatase 150 U/L (38-126); Anion Gap 4 mmol/L (4-12); Aspartate Amino Transferase 26 U/L (14-36); Blood Urea Nitrogen 26 mg/dL (7-17); Calcium 9.6 mg/dL (8.4-10.2); Carbon Dioxide 30 mmol/L (22-30); Chloride 105 mmol/L (98-107); Cholesterol 177 mg/dL (0-200); Estimated Glomerular Filt Rate > 60; Glucose 87 mg/dL (65-110); HDL Direct 95 mg/dL; Potassium 3.9 mmol/L (3.4-5.0); Sodium 139 mmol/L (137-145); Triglycerides 57 mg/dL (<150)
[2024-05-21 12:08] LABS: Free T4 Free Thyroxine 1.24 ng/mL (0.78-2.19)
[2024-05-21 12:11] LABS: LDL Cholesterol Direct 60 mg/dL
[2024-05-21 13:23] LABS: Hemoglobin A1C 5.8 % (<5.7)
== END 2024-05-21 10:27 | disposition home or self-care (01) ==
LOC: ANHLAB 10:28
PROVIDERS: PCP Internal Medicine; Visit Provider Internal Medicine
DX: E78.5 Hyperlipidemia, unspecified (principal); I10 Essential (primary) hypertension; R73.03 Prediabetes; R94.6 Abnormal results of thyroid function studies
CPT/HCPCS: 36415; 80053; 80061; 83036; 84439; 84443; 85025; 99212; G0463

== ENCOUNTER 2024-06-04 09:58 | Outpatient (CLI) | payer OTHER, SELFPAY ==
[2024-06-05 14:02] LABS: Kit Draw Collected
== END 2024-06-04 09:59 | disposition home or self-care (01) ==
PROVIDERS: PCP Internal Medicine; Visit Provider Internal Medicine Hematology & Oncology
DX: C50.411 Malignant neoplasm of upper-outer quadrant of right female breast (principal); Z17.0 Estrogen receptor positive status [ER+]
CPT/HCPCS: 36415; 99212; G0463

== ENCOUNTER 2024-07-24 11:00 | Outpatient (CLI) | payer OTHER, SELFPAY ==
[2024-07-24 12:14] LABS: Basophils Absolute Auto 0.1 K/mm3 (0.0-0.1); Basophils Percent Auto 1.5 % (0.2-1.2); Eosinophils Absolute Auto 0.9 K/mm3 (0-0.3); Eosinophils Percent Auto 15.9 % (0-4.4); Hematocrit 40.1 % (37.0-47.0); Hemoglobin 12.7 g/dL (12.0-15.0); Immature Granulocyte Absolute 0.01 K/mm3 (0.00-0.031); Immature Granulocyte Percent A 0.2 % (0-0.5); Lymphocytes Absolute Auto 1.29 K/mm3 (0.9-3.2); Lymphocytes Percent Auto 24.1 % (18.3-44.2); Mean Corpuscular HGB Conc 31.7 g/dl (32-36); Mean Corpuscular Volume 85.1 fl (80-100); Mean Platelet Volume 10.3 fl (7.4-10.4); Monocytes Absolute Auto 0.4 K/mm3 (0.1-0.6); Monocytes Percent Auto 6.5 % (2.6-8.5); Neutrophils Absolute Auto 2.8 K/mm3 (1.3-6.7); Neutrophils Percent Auto 51.8 % (45.5-73.1); Platelet Count Result 308 k/mm3 (150-375); Red Blood Count 4.71 M/mm3 (4.2-5.4); Red Cell Distribution Width 14.5 % (11.5-14.5); White Blood Count 5.4 K/mm3 (4.5-10.0)
[2024-07-24 12:26] LABS: Alanine Aminotransferase 19 U/L (6-35); Albumin Level 3.8 g/dL (3.5-5.1); Alkaline Phosphatase 146 U/L (38-126); Anion Gap 2 mmol/L (4-12); Aspartate Amino Transferase 28 U/L (14-36); Bilirubin,Total 0.7 mg/dL (0.2-1.3); Blood Urea Nitrogen 26 mg/dL (7-17); Calcium 9.5 mg/dL (8.4-10.2); Carbon Dioxide 31 mmol/L (22-30); Chloride 103 mmol/L (98-107); Estimated Glomerular Filt Rate > 60; Glucose 95 mg/dL (65-110); Sodium 136 mmol/L (137-145)
[2024-07-26 08:03] LABS: CA 15-3 16 U/mL (<32)
== END 2024-07-24 11:01 | disposition home or self-care (01) ==
PROVIDERS: PCP Internal Medicine; Visit Provider Internal Medicine Hematology & Oncology
DX: C50.411 Malignant neoplasm of upper-outer quadrant of right female breast (principal); Z17.0 Estrogen receptor positive status [ER+]
CPT/HCPCS: 36415; 80053; 85025; 86300; 99212; G0463

== ENCOUNTER 2024-07-31 10:38 | Outpatient (CLI) | payer OTHER, SELFPAY ==
--- NOTE | ~2024-07-31 | XR_ITS ---
EXAMINATION: XR wrist LT min 3V, XR hand LT min 3V DATE: 07/31/2024 11:04 INDICATION: Left hand and wrist pain TECHNIQUE: 1. Posteroanterior, ulnar deviation, oblique, and lateral views of the left wrist were obtained. 2. Dorsal palmar, oblique and lateral views of the left hand were obtained. COMPARISON: None. FINDINGS: 2 mm ulnar minus variance. Otherwise normal alignment of the left hand and wrist. No fracture. Minima l to mild polyarticular osteoarthritis at the distal radioulnar, triscaphe, first carpometacarpal and several interphalangeal joints. No erosions to suggest inflammatory arthritis. IMPRESSION: 1. Minimal to mild polyarticular osteoarthritis at the left hand and wrist. Reviewed, dictated and finalized at location A. AL CMO IMPRESSION: 1. Minimal to mild polyarticular osteoarthritis at the left hand and wrist.
--- OUTSIDE RECORDS SUMMARY | 2024-08-02 17:31 | XMS_ITS | Encounter Summary ---
Author Organization [facility] [employer] Address [address] [phone] Care Team Providers Care Production Bow Maker Name Role Phone Robby Doyle MD Primary Care Provider + Reason for Visit * Reason Comments Medication Refill Encounter Details Date Type Department Care Team (Late st Contact Info) Description 08/21/2019 Refill [facility] Oncology [facility] Hematology [facility] [address] [place] [address] Ramsey Harrington MD [facility] [employer] [address] [place] [phone] Malignant neoplasm of upper-outer quadrant of right breast in female, estrogen receptor positive (CMS/HCC) Social History Tobacco Use Types Packs/Day Years Used Date Smoking Tobacco: Never Smokeless Tobacco: Never Alcohol Use Standard Drinks/Week Comments No 0 (1 standard drink = 0.6 oz pur e alcohol) Comments No Sex and Gender Information Value Date Recorded Sex Assigned at Not on file Legal Sex Female 9:46 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 Gender Identity Not on file Sexual Orientation Not on file documented as of this encounter Plan of Treatment Upcoming Encounters Date Type Department Care Team (Late st Contact Info) Description 01/29/2025 11:30 AM CDT Office Visit [facility] Oncology and Hematology [address] [place] [address] Ramsey Harrington MD [facility] [employer] [address] [place] [address] documented as of this encounter Visit Diagnoses Diagnosis Malignant neoplasm of upper-outer quadrant of right breast in female, estrogen receptor positive (CMS/HCC) documented in this encounter Care Teams Production Bow Maker Relationship Specialty Start Date End Date Robby Doyle MD [address] [place] [phone] PCP - General Internal Medicine 07/20/16 documented as of this encounter
--- OUTSIDE RECORDS SUMMARY | 2024-08-02 17:31 | XMS_ITS | Encounter Summary ---
Author Organization [facility] [employer] [facility] Address [address] [place] [address] Care Team Providers Care Vice Investigator Name Role Phone Robby Doyle MD Primary Care Provider + Encounter Details Date Type Department Care Team (Late Contact Info) Description 07/26/[address] 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 Oncology and Hematology - [address] [place] [address] Ramsey Harrington MD [facility] [employer] [address] [place] [phone] documented as of this encounter Procedures Procedure Name Priority Date/Time Associated Diagnosis Comments CANCER ANTIGEN 15-3 Routine 07/24/2024 3:31 PM BATTERY ASSEMBLER documented in this encounter Results * CANCER ANTIGEN 15-3 (07/24/2024 3:31 PM BATTERY ASSEMBLER) Blood Ramsey Harrington MD CHEMISTRY ORDERABLES Final Resu lt documented in this encounter Visit Diagnoses Not on filedocumented in this encounter Care Teams Vice Investigator Relationship Specialty Start Date End Date Robby Doyle MD [address] [place] [phone] PCP - General Internal Medicine 07/20/16 documented as of this encounter
--- OUTSIDE RECORDS SUMMARY | 2024-08-02 17:31 | XMS_ITS | Clinical Summary ---
Author Organization [facility] [employer] Address [address] [place] [address] Care Team Providers Care Managing Director Atlas Name Role Phone Robby Doyle MD Primary Care Provider [phone] Source Comments [facility] [employer],non-owned Affiliates and Associated Physician Practices is amultiple site organization consisting of ambulatory clinics and hospital sitesin [place], [place]. This disclosure is being madepursuant to the Care Everywhere program and may not contain all information available regarding this patient. Last updated 18.[facility] [employer] Allergies Active Allergy Reactions Criticality Noted Date Comments Morphine Itching 04/08/2009 Sulfa Drugs 04/08/2009 Mouth sores Medications * Be aware that medications may not be up to date on this document. Alwaysverify current medications with the patient. Medication Sig Dispensed Refills Start Date End Date Status lisinopril-hydrochlor othiazide (PRINIZIDE; ZESTORETIC) 10-12.5 MG tablet Take 1 Tab by mouth daily. 1/2 tab; Take am of OR Active gabapentin (NEURONTIN) 600 MG tablet Take 600 mg by mouth at bedtime. Active MULTIVITAL PO Take by mouth daily. Active ESTRASORB TD Apply to skin. As Directed Active VITAMIN D PO Take by mouth. As Directed Active CALCIUM PO Take by mouth. As Directed Active aspirin 81 MG tablet Take 1 Tab by mouth daily. Active IBUPROFEN PO Active Active Problems Problem Noted Date Diagnosed Date Low back pain radiating to right lower extremity 06/04/2009 Overview (05/18/2015): Preoperative examination 04/09/2009 Family History Medical History Relation Name Comments Diabetes Other 1 Cancer Other 2 Heart Disease Other 3 Hypertension Other 4 Relation Name Status Comments Father Alive Mother Alive Other 1 Other 2 Other 3 Other 4 Sister 1 Alive Sister 2 Alive Social History Tobacco Use Types Packs/Day Years Used Date Smoking Tobacco: Never Alcohol Use Standard Drinks/Week Comments No 0 (1 standard drink = 0.6 oz pur e alcohol) Sex and Gender Information Value Date Recorded Sex Assigned at Not on file Gender Identity Not on file Sexual Orientation Not on file Last Filed Vital Signs Vital Sign Reading Time Taken Comments Blood Pressure 125/63 04/14/2009 1:21 PM CDT Pulse 102 04/14/2009 1:21 PM CDT Temperature 36.4 ??C (97.5 ??F) 04/14/2009 1:21 PM CD T Respiratory Rate 16 04/14/2009 1:21 PM CDT Oxygen Saturation 94% 04/14/2009 1:21 PM CDT Inhaled Oxygen Concentration - - Weight 90.7 kg (200 lb) 06/11/2009 12:08 PM SEWAGE RETICULATION DRAFTING OFFICER Height 161.3 cm (5' 3.5 ) 06/11/2009 12:08 PM CS T Body Mass Index 34.87 06/11/2009 12:08 PM SEWAGE RETICULATION DRAFTING OFFICER Plan of Treatment Health Maintenance Due Date Last Done Comments COLOGUARD (AGES 45-75) - COL ON CA SCREENING 1960 COLON MONITORING 1960 COLONOSCOPY - COLON CA SCREENING 1962 CT COLONOGRAPHY - COLON CA SCREENING 1960 Colorectal Cancer Screening 1960 FIT - COLON CA SCREENING 1962 FLEX SIG - COLON CA SCREENING 1960 LIPID TESTING 1960 MAMMOGRAM 1960 PAP SMEAR 1962 HIV SCREENING 1977 HEPATITIS C SCREENING 09/29/1980 DTAP/TDAP/TD VACCINES (1 - Tdap) 1981 PNEUMOCOCCAL VACCINE 50+ (1 of 1 - PCV) 2012 ZOSTER VACCINE (1 of 2) 2012 COVID-19 VACCINE ( - 2023-2 5 season) 2024 INFLUENZA VACCINE (#1) 2024 DEPRESSION SCREENING 07/11/2024 Respiratory Syncytial Virus (RSV) Vaccine Pt: or over 60 yrs (1 - 1-dose 75+ series) 2037 HEPATITIS B VACCINE Aged Out No longe r eligible based on patient's age to complete this topic HIB VACCINE Aged Out No longer eligi ble based on patient's age to complete this topic HPV VACCINE Aged Out No longer eligi ble based on patient's age to complete this topic MENINGOCOCCAL (Group B) VACCINE Aged Out No longer eligible based on patient's age to complete this topic MENINGOCOCCAL VACCINE Aged Out No ilene didi eligible based on patient's age to complete this topic PNEUMOCOCCAL VACCINE Aged Out No long er eligible based on patient's age to complete this topic Care Teams Managing Director Atlas Relationship Specialty Start Date End Date Robby Doyle MD [address] [place] [address] PCP - General 04/14/09
--- OUTSIDE RECORDS SUMMARY | 2024-08-02 17:31 | XMS_ITS | Encounter Summary ---
Author Organization [facility] Address [address] [place] [address] Care Team Providers Care Shearing Supervisor Name Role Phone Robby Doyle MD Primary Care Provider + Encounter Details Date Type Department Care Team (Late Contact Info) Description 01/04/2017 Chart Note [facility] Radiation Therapy [address] [place] [address] [place] [address] [place] [address] Social History Tobacco Use Types Packs/Day Years Used Date Smoking Tobacco: Never Alcohol Use Standard Drinks/Week Comments No 0 (1 standard drink = 0.6 oz pur e alcohol) Comments No Sex and Gender Information Value Date Recorded Sex Assigned at Not on file Legal Sex Female 9:46 AM OVERCASTER Gender Identity Not on file Sexual Orientation Not on file documented as of this encounter Plan of Treatment Upcoming Encounters Date Type Department Care Team (Late Contact Info) Description 01/29/2025 11:30 AM CDT Office Visit [facility] Oncology and Hematology - [address] [facility] [address] [place] [address] Ramsey Harrington MD [address] [facility] [address] [place] [address] documented as of this encounter Visit Diagnoses Not on filedocumented in this encounter Care Teams Shearing Supervisor Relationship Specialty Start Date End Date Robby Doyle MD [address] [place] [address] PCP - General Internal Medicine 07/20/16 documented as of this encounter
--- OUTSIDE RECORDS SUMMARY | 2024-08-02 17:31 | XMS_ITS | Encounter Summary ---
Author Organization [facility] [employer] [facility] Address [address] [place] [address] Care Team Providers Care Business Strategy Manager Name Role Phone Robby Doyle MD Primary Care Provider + Reason for Visit * Reason Comments Medication Refill Encounter Details Date Type Department Care Team (Late st Contact Info) Description 08/20/2019 Refill [facility] Oncology [facility] Hematology [facility] [address] [place] [address] Ramsey Harrington MD [facility] [employer] [address] [place] [phone] Malignant neoplasm of upper-outer quadrant of [...] on file Legal Sex Female 9:46 AM SNOW BLOWER Gender Identity Not on file Sexual Orientation Not on file documented as of this encounter Plan of Treatment Upcoming Encounters Date Type Department Care Team (Late st Contact Info) Description 01/29/2025 11:30 AM CDT Office Visit [facility] Oncology and Hematology [address] [place] [address] Ramsey Harrington MD [facility] [employer] [address] [place] [address] documented as of this encounter Visit Diagnoses Diagnosis Malignant neoplasm of upper-outer quadrant of right breast in female, estrogen receptor positive (CMS/HCC) documented in this encounter Care Teams Business Strategy Manager Relationship Specialty Start Date End Date Robby Doyle MD [address] [place] [phone] PCP - General Internal Medicine 07/20/16 documented as of this encounter
--- OUTSIDE RECORDS SUMMARY | 2024-08-02 17:31 | XMS_ITS | Encounter Summary ---
Author Organization [facility] [email or web address] [facility] Address [address] [place] [address] Care Team Providers Care Container Washer Machine Name Role Phone Robby Doyle MD Primary Care Provider + Reason for Referral * Radiology Services (Routine) - Closed Specialty Diagnoses / Procedures Referred By Contac t Referred To Contact Diagnoses Malignant neoplasm of upper-outer quadrant of right breast in female, estrogen receptor positive (CMS/HCC) Procedures MAMMO DIAGNOSTIC [place] [address] [place] [phone] Phone: tel: fax: [address] [address] Phone: tel: fax: Referral ID Status Reason Start Date Expiration Date V isits Requested Visits Authorized [id number] Closed [facility] CTS 07/31/2024 08/31/2025 1 1 UCTION ROUSTABOUT Reason for Visit * Reason Comments Cancer Follow Up Encounter Details Date Type Department Care Team (Late st Contact Info) Description 07/31/2024 11:45 AM PRODUCTION ROUSTABOUT Office Visit [facility] Oncology and Hematology - [place] [address] [place] [address] [address] [place] [address] Ramsey Harrington MD [address] [facility] [address] [place] [address] Malignant neoplasm of upper-outer quadrant of right breast in female, estrogen receptor positive (CMS/HCC) (Primary Dx) Social History Tobacco Use Types Packs/Day Years Used Date Smoking Tobacco: Never Smokeless Tobacco: Never Tobacco Cessation:Counseling Given: Not Answered Alcohol Use Standard Drinks/Week Comments Yes 0 (1 standard drink = 0.6 oz pur e alcohol) Comments No Sex and Gender Information Value Date Recorded Sex Assigned at Not on file Legal Sex Female 9:46 AM PRODUCTION ROUSTABOUT Gender Identity Not on file Sexual Orientation Not on file documented as of this encounter Last Filed Vital Signs Vital Sign Reading Time Taken Comments Blood Pressure 142/78 07/31/2024 11:41 AM PRODUCTION ROUSTABOUT Pulse 67 07/31/2024 11:41 AM PRODUCTION ROUSTABOUT Temperature 36 ??C (96.8 ??F) 07/31/2024 11:41 AM PRODUCTION ROUSTABOUT Respiratory Rate 14 07/31/2024 11:41 AM PRODUCTION ROUSTABOUT Oxygen Saturation 93% 07/31/2024 11:41 AM PRODUCTION ROUSTABOUT Inhaled Oxygen Concentration - - Weight 69.9 kg (154 lb) 07/31/2024 11:41 AM PRODUCTION ROUSTABOUT Height - - Body Mass Index 29.1 12/22/2021 10:26 AM CDT documented in this encounter Progress Notes * Ramsey Harrington MD - 07/31/2024 11:36 AM CST HEMATOLOGY / ONCOLOGY PROGRESS NOTE Patient Identification: Name: Sonya Canseco Age: 63 y.o. 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 Tumor more than 3 cm size with extension to medial resection margins status post complete mastectomy in January 2017 CURRENT TREATMENT Surveillance TREATMENT HISTORY Completed chemotherapy with TCH Perjeta November 2016 Maintenance Herceptin completed February 2018 Could not tolerate neratinib Radiation therapy completed August 2017 Arimidex started February 2017. Discontinued January 23, 2024 SUBJECTIVE Patient came to the office for follow-up visit. She denies any night sweats fever chills and weightloss. Denies any new lumps bumps and lymphadenopathy. She has some swelling in the left wrist. No other new complaints. Review of system Constitutional: denies fevers, weight and appetite stable, denies any tiredness and fatigue HEENT: denies sinus congestion, hearing or vision problems Respiratory: denies cough, dyspnea, wheeze Cardiovascular: denies chest pain, exertional chest pressure/discomfort, nausea, syncope, shortnessof breath GI: denies constipation, diarrhea, dsyphagia, reflux symptoms, vomiting, melena : denies dysuria, frequency, incontinence, urgency Integumentary system: no lymphadenopathy, sweats, flushing Musculoskeletal: denies: myalgia, arthralgia, Neurological: denies blurry or disturbed vision, numbness/weakness, dizziness Skin: No lumps, bumps or rashes. 12 point review of system was reviewed Objective: Vital signs in last 24 hours: As per nursing note Exam: General appearance: alert, cooperative, no distress, appears stated age Head: normocephalic, without obvious abnormality, atraumatic Eyes: conjunctivae/corneas clear, EOM's intact Ears: normal external ear canals AU Nose: Nares normal. Septum midline. Mucosa normal. No drainage or sinus tenderness Throat: Lips, mucosa, and tongue normal. Teeth and gums normal Neck: supple, symmetrical, trachea midline. Lungs: clear to auscultation bilaterally Heart: regular rate and rhythm, S1, S2 normal, no murmur, click, rub or gallop Abdomen: soft, non-tender. Bowel sounds normal. No masses, No organomegaly Extremities: extremities normal, atraumatic, no cyanosis or edema Skin: Skin color, texture, turgor normal. No rashes or lesions Lymph nodes: No lymphadenopathy Neuro: No obvious focal deficit Right chest wall no masses and lymphadenopathy. Left breast no masses and lymphadenopathy. Exam as above LABS Labs from June 19, 2019 showed WBC 6.7 hemoglobin 12.6 platelet 250,000 creatinine 0.7 CA-27-29was 22. Labs from November 26 showed WBC 5.3 hemoglobin 12.5 platelet 244,000 creatinine 0.8 total bilirubin 0.9CA-27-29 was 22. Labs from June 03 showed CA 27-29 of 23 creatinine 0.8 total bilirubin 1.0 hemoglobin 13 WBC 4.4 platelet 250,000. Labs from December 09 showed creatinine 0.8 WBC 5.7 hemoglobin 12.6 platelet 265,000 CA 15-3 15 Labs from June 09 8 showed CA 15-3 14 creatinine 0.8 total bilirubin 0.7 WBC 5.1 hemoglobin 11.1 platelet 272,000 Labs from December 08 showed CA 15-3 15 creatinine 0.8 total bilirubin 0.5 AST 24 ALT 22 alkaline phosphatase 129 CBC normal Labs from June 08 showed WC 6.2 hemoglobin 12.8 platelet 292,000 creatinine 0.8 protein 6.0 CA 15-3 16 Labs from December 07 showed CA 15-3 14 creatinine 0.8 WBC 5.2 hemoglobin 12.5 platelet 254,000 total bilirubin 1.0 Labs from June 14 showed total bilirubin 0.9 WBC 4.7 hemoglobin 12.6 platelet 245,000 CA 15-3 13 Labs from December 12 showed CA 15-3 14 creatinine 0.8 total bilirubin 0.7 WBC 4.6 hemoglobin 12.4 platelet 250,000 Labs from July 24 showed creatinine 0.6 total bilirubin 0.7 hemoglobin 12.7 CA 15-3 16 Assessment: Plan: Patient Active Problem List Diagnosis Date Noted Family history of pancreatic cancer 08/26/2020 Family history of uterine cancer 08/26/2020 Genetic testing 08/26/2020 Abnormality of left breast on screening mammogram 12/20/2019 Skin lesion of breast 01/31/2019 Aromatase inhibitor use 01/18/2018 Estrogen receptor positive 01/17/2018 Deformity and disproportion of reconstructed breast 01/17/2018 Acquired absence of right breast 01/17/2018 History of antineoplastic chemotherapy 11/22/2017 Lymphedema 11/22/2017 History of radiation therapy 11/22/2017 Costochondritis 11/22/2017 Obesity (BMI 35.0-39.9 without comorbidity) 10/24/2017 Malignant neoplasm of upper-outer quadrant of right breast in female, estrogen receptor positive 07/20/2016 Benign hypertension 07/20/2016 Mixed hyperlipidemia 07/20/2016 Restless leg syndrome 07/20/2016 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 Left breast core biopsy was done on December 18, 2019 showed organizing fat necrosis without any malignancy. Anastrozole 1 mg daily started February 2017. Anastrozole discontinued on January 23, 2024. There is no evidence of relapse of disease on my examination. Labs including tumor marker stable. [employer] ration sequencing showed no actionable mutation. There was presence of variants of unknown significance. I will order left breast diagnostic mammogram in 5 months and follow-up in 6 months. Osteopenia. She will continue vitamin D and calcium. History of portal venous thrombosis with factor V Leiden mutation. She is stable on aspirin. Peripheral neuropathy. Stable on Lyrica. Anemia. Resolved. Continue iron. Follow-up in 6 months. 07/31/2024 Ramsey Harrington MD UCTION ROUSTABOUT documented in this encounter Plan of Treatment Upcoming Encounters Date Type Department Care Team (Late st Contact Info) Description 01/29/2025 11:30 AM CDT Office Visit [facility] Oncology and Hematology [facility] [address] [facility] [address] [place] [address] Ramsey Harrington MD [address] [facility] [employer] [address] [place] [address] Scheduled Orders Name Type Priority Associated Diagnoses Orde r Schedule CBC WITH DIFFERENTIAL Lab Stat Malignant neoplasm of upper-outer quadrant of right breast in female, estrogen receptor positive (CMS/HCC) Expected: 01/28/2025, Expires: 07/31/2025 CANCER ANTIGEN 15-3 Lab Routine Malignant neoplasm of upper-outer quadrant of right breast in female, estrogen receptor positive (CMS/HCC) Expected: 01/28/2025, Expires: 07/31/2025 COMPREHENSIVE METABOLIC PANEL Lab Stat Malignant neoplasm of upper-outer quadrant of right breast in female, estrogen receptor positive (CMS/HCC) Expected: 01/28/2025, Expires: 07/31/2025 MAMMO DIAGNOSTIC UNI LEFT W CONTRAST Imaging Routine Malignant neoplasm of upper-outer quadrant of right breast in female, estrogen receptor positive (CMS/HCC) Expected: 12/29/2024, Expires: 01/28/2026 documented as of this encounter Visit Diagnoses Diagnosis Malignant neoplasm of upper-outer quadrant of right breast in female, estrogen receptor positive (CMS/HCC)- Primary documented in this encounter Care Teams Container Washer Machine Relationship Specialty Start Date End Date Robby Doyle MD [address] [place] [address] PCP - General Internal Medicine 07/20/16 documented as of this encounter
--- OUTSIDE RECORDS SUMMARY | 2024-08-02 17:31 | XMS_ITS | Clinical Summary ---
Author Organization [facility] Address [address] [place] [address] Care Team Providers Care Product Sales Engineer Name Role Phone Robby Doyle MD Primary Care Provider + Allergies Active Allergy Reactions Criticality Noted Date Comments Hydromorphone Itching Low 07/31/2024 Lisinopril Other (See Comments) 06/07/2018 Cholinergic urteria Morphine Itching Low 04/08/2009 Sulfa (Sulfonamide Antibiotics) Other (See Comments) 04/08/2009 Mouth sores Mouth sores Medications colesevelam (WELCHOL) 625 mg Tablet Take 1,875 mg by mouth 2 times daily with meals. Active calcium carbonate + vitamin D (CALTRATE+D) 600 mg(1,500mg) -400 unit Tablet Take 3 Tablet by mouth daily. Active pseudoephedrine (SUDAFED) 30 mg tablet Take 60 mg by mouth every 4 hours as needed for Congestion. Active fluticasone (FLONASE) 50 mcg/spray [place], Suspension Administer 2 Sprays in each nostril 1 time daily as needed for Rhinitis. Active cholecalciferol , vitamin D3, 5,000 unit Take 5,000 Units by mouth daily. Active aspirin (HIRAM) 325 mg tablet Take 325 mg by mouth daily. Active cyclobenzaprine (FLEXERIL) 10 mg tablet TAKE ONE TABLET TWICE DAILY NEEDED 0 8 Active pantoprazole (PROTONIX) 40 mg Tablet, Delayed Release (E.C.) 8 Active losartan (COZAAR) 25 mg tablet Take 25 mg by mouth. Active acetaminophen-c odeine (TYLENOL #3) 300-30 mg tabletIndicatio ns:only taking prn for back pain Take 1 Tablet by mouth every 4 hours as needed for Pain, Moderate. Active folic acid (FOLVITE) 0.8 mg Tablet Take 800 mcg by mouth daily. Active cyanocobalamin 1,000 mcg Tablet Take 1,000 mcg by mouth daily. Active ibuprofen (MOTRIN) 800 mg tablet Take 800 mg by mouth every 6 hours as needed for Pain, Mild. 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 Acquired absence of right breast 01/17/2018 History of antineoplastic chemotherapy 8 Lymphedema 11/22/2017 History of radiation therapy 11/22/2017 Costochondritis 11/22/2017 Obesity (BMI 35.0-39.9 without comorbidity) 10/09 Malignant neoplasm of upper- outer quadrant of right breast in female, estrogen receptor positive 07/20/2016 Benign hypertension 07/20/2016 Mixed hyperlipidemia 07/20/2016 Restless leg syndrome 07/20/2016 Encounters Date Type Department Care Team Description 07/31/2024 11:45 AM BPM ARCHITECT Office Visit [facility] - [place] [address] [place] [address] Ramsey Harrington MD Malignant neoplasm of upper-outer quadrant of right breast in female, estrogen receptor positive (CMS/HCC) (Primary Dx) 07/31/2024 Orders Only [facility] [place] [address] [place] [address] Ramsey Harrington MD Abnormal mammogram of left breast (Primary Dx) 07/26/2024 Orders Only [facility] [place] [address] [place] [address] Ramsey Harrington MD 07/26/2024 Abstract [facility] [place] [address] [place] [address] Ramsey Harrington MD 07/24/2024 External Device Data ST[facility] ABSTRACTION Provider, Abstract 07/24/2024 Orders Only [facility] [place] [address] [place] [address] Ramsey Harrington MD Malignant neoplasm of upper-outer quadrant of right breast in female, estrogen receptor positive (CMS/HCC) (Primary Dx) 06/04/2024 Orders Only [facility] [place] [address] [place] [id number] Ramsey Harrington MD Malignant neoplasm of upper-outer quadrant of right breast in female, estrogen receptor positive (CMS/HCC) (Primary Dx) 05/25/2024 Telephone [facility] - [place] [address] [place] [address] Ramsey Harrington MD Genetic Testing from Last 3 Months Family History Medical History Relation Name Comments Healthy Daughter Cancer Father Pancreatic Hypertension Father Pancreatic Cancer Father Heart Disease Maternal Grandfather Cancer Maternal Grandmother Uterine cancer-metastatic Diabetes Mother Heart Disease Mother Heart Disease Paternal Grandmother Stroke Paternal Grandmother Heart Disease Sister 1 Heart Disease Sister 2 Healthy Son Relation Name Status Comments Daughter Alive Father Maternal Grandfather Maternal Grandmother Maternal Uncle Alive Mother Alive Paternal Grandfather Paternal Grandmother Paternal Uncle 1 Paternal Uncle 2 Sister 1 Alive Sister 2 Alive Son Alive Social History Tobacco Use Types Packs/Day Years Used Date Smoking Tobacco: Never Smokeless Tobacco: Never Tobacco Cessation:Counseling Given: Not Answered Alcohol Use Standard Drinks/Week Comments Yes 0 (1 standard drink = 0.6 oz pur e alcohol) Comments No Sex and Gender Information Value Date Recorded Sex Assigned at Not on file Legal Sex Female 9:46 AM BPM ARCHITECT Gender Identity Not on file Sexual Orientation Not on file Last Filed Vital Signs Vital Sign Reading Time Taken Comments Blood Pressure 142/78 07/31/2024 11:41 AM BPM ARCHITECT Pulse 67 07/31/2024 11:41 AM BPM ARCHITECT Temperature 36 ??C (96.8 ??F) 07/31/2024 11:41 AM BPM ARCHITECT Respiratory Rate 14 07/31/2024 11:41 AM BPM ARCHITECT Oxygen Saturation 93% 07/31/2024 11:41 AM BPM ARCHITECT Inhaled Oxygen Concentration - - Weight 69.9 kg (154 lb) 07/31/2024 11:41 AM BPM ARCHITECT Height 154.9 cm (5' 1 ) 12/22/2021 10:26 AM CDT Body Mass Index 29.1 12/22/2021 10:26 AM CDT Plan of Treatment Upcoming Encounters Date Type Department Care Team (Late st Contact Info) Description 01/29/2025 11:30 AM CDT Office Visit [facility] [address] [facility] [address] [place] [address] Ramsey Harrington MD [address] [facility] [address] [place] [address] Health Maintenance Due Date Last Done Comments Pre-Diabetes and Diabetes Screening 1962 DTAP/TDAP/TD VACCINES (1 - Tdap) 1981 CERVICAL CANCER SCREENING 1992 COLORECTAL SCREENING 10/05/2007 Colorectal Cancer Screening 10/05/2007 FIT-DNA Q 3 years 10/05/2007 FIT/FOBT Q 1 year 10/05/2007 Flex Sig/CT Colonography Q 5 years 10/05/2007 ZOSTER VACCINE (1 of 2) 2012 INFLUENZA VACCINE (#1) 2024 Preventative Visit- Commercial 07/11/2024 BREAST CANCER SCREENING 01/03/2025 01/04/20 24, 12/20/2023, 12/14/2022, Additional history exists RSV VACCINE (60+ or ) (1 - 1-dose 75+ series) 2037 Procedures Procedure Name Priority Date/Time Associated Diagnosis Comments COMPREHENSIVE METABOLIC PANEL Routine 07/24/2024 3:45 PM BPM ARCHITECT CANCER ANTIGEN 15-3 Routine 07/24/2024 3 :31 PM BPM ARCHITECT [facility] CANCERNEXT AND XG+ CANCERNEXT-EXPANDED Routine 07/09/2024 1:12 PM BPM ARCHITECT Malignant neoplasm of upper-outer quadrant of right breast in female, estrogen receptor positive (CMS/HCC) [facility]F Routine 06/13/2024 6:56 PM BPM ARCHITECT Malignant neoplasm of upper-outer quadrant of right breast in female, estrogen receptor positive (CMS/HCC) [facility] DNA AND RNA Routine 06/04/2024 12:04 PM BPM ARCHITECT Malignant neoplasm of upper-outer quadrant of right breast in female, estrogen receptor positive (CMS/HCC) [facility] NORMAL BLOOD Routine 12:04 PM BPM ARCHITECT Malignant neoplasm of upper-outer quadrant of right breast in female, estrogen receptor positive (CMS/HCC) [facility] DNA AND RNA SOLID TUMOR Routine 06/04/2024 12:04 PM BPM ARCHITECT Malignant neoplasm of upper-outer quadrant of right breast in female, estrogen receptor positive (CMS/HCC) MAMMO DIAGNOSTIC UNI LEFT W OR WO CAD Routine 01/04/2024 11:31 AM CDT from Last 3 Months or Most Recently Relevant to Health Maintenance Results * COMPREHENSIVE METABOLIC PANEL (07/24/2024 3:45 PM BPM ARCHITECT) Blood Ramsey Harrington MD CHEMISTRY ORDERABLES Final Resu lt * CANCER ANTIGEN 15-3 (07/24/2024 3:31 PM BPM ARCHITECT) Blood Ramsey Harrington MD CHEMISTRY ORDERABLES Final Resu lt * [facility] CANCERNEXT AND XG+ CANCERNEXT-EXPANDED (07/09/2024 1:12 PM BPM ARCHITECT) [facility] Portal [email or web address] [email or web address] 07/09/2024 1:12 PM BPM ARCHITECT [facility] Comment:[employer] Portal link Interpretation Report See Notes 07/09/2024 1:12 PM BPM ARCHITECT [facility] Comment: No known clinically actionable alterations were detected. One variant of unknown significance was detected in the MUTYH gene. Risk Estimate: should be based on clinical and family history, as the clinical significance of this result is unknown. Genetic counseling is a recommended option for all individuals undergoing genetic testing. 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 Refer to the supplementary pages for additional information on this variant. No additional pathogenic mutations, variants of unknown significance, or gross deletions or duplications were detected. Genes Analyzed (36 total): APC, COLETTE, BARD1, BMPR1A, BRCA1, BRCA2, BRIP1, CDH1, CDK4, CDKN2A, CHEK2, DICER1, MLH1, MSH2, MSH6, MUTYH, NBN, NF1, NTHL1, PALB2, PMS2, PTEN, RAD51C, RAD51D, RECQL, SMAD4, SMARCA4, STK11 and TP53 (sequencing and deletion/duplication); AXIN2, HOXB13, MSH3, POLD1 and POLE (sequencing only); EPCAM and GREM1 (deletion/duplication only). Overall Interpretation Variant of Unknown Significance Detected 07/09/2024 1:12 PM BPM ARCHITECT [facility] Genes analyzed APC,COLETTE,BARD1,B MPR1A,BRIP1,CDH 1,CDKN2A,CHEK2, DICER1,EPCAM,ML H1,MSH2,MSH6,MU TYH,NBN,PALB2,P MS2,PTEN,RAD51C ,RAD51D,SMAD4,S TK11,TP53,CDK4, NF1,BRCA1,BRCA2 ,NTHL1,RECQL,SM ARCA4,GREM1,MSH 3,POLD1,POLE,AX IN2,HOXB13 07/09/2024 1:12 PM BPM ARCHITECT [facility] Blood specimen (specimen) 07/09/2024 1:19 PM BPM ARCHITECT Narrative This result has genomic variants that were not included in this document. us Ramsey Harrington MD MOLECULAR ORDERABLES Final Resu lt [facility] [address], [address] [place] [address], [facility] [address], [address] [place] [address] * [facility] XF (06/13/2024 6:56 PM BPM ARCHITECT) Reason for Study To identify mutations relevant to patient's cancer. 06/13/2024 6:56 PM BPM ARCHITECT [facility] Genetic Diseases Assessed Cancer 06/13/2024 6:56 PM BPM ARCHITECT [facility] Description of Ranges of DNA Sequences Examined 105 gene liquid biopsy 06/13/2024 6:56 PM BPM ARCHITECT [facility] Overall Interpretation inconclusive 06/13/2024 6:56 PM BPM ARCHITECT [facility] Portal [email or web address] [email or web address] 06/13/2024 6:56 PM BPM ARCHITECT [facility] Comment:[facility] Portal link Low Coverage Regions JAK1, SPOP, TERT 06/13/2024 6:56 PM BPM ARCHITECT [facility] Blood Tumor Mutational Leroy Note bTMB cannot be calculated due to insufficient circulating tumor DNA. 06/13/2024 6:56 PM BPM ARCHITECT [facility] Genomic Variant Note No reportable pathogenic variants were found. 06/13/2024 6:56 PM BPM ARCHITECT [facility] Microsatellite Instability Note MSI-High not detected 06/13/2024 6:56 PM BPM ARCHITECT [facility] Treatment Implications Note No reportable treatment options found. 06/13/2024 6:56 PM BPM ARCHITECT [facility] Blood specimen (specimen) 06/08/2024 5:05 PM BPM ARCHITECT Narrative This result has genomic variants that were not included in this document. us Ramsey Harrington MD MOLECULAR ORDERABLES Final Resu lt Performing Organization Address [facility]/ZIP Co de Phone Number [facility] [address] [facility], [address] [place] [address], [facility] [address], [address] [place] [address] * [facility] NORMAL BLOOD (06/04/2024 12:04 PM BPM ARCHITECT) [facility] 06/04/2024 11:01 PM BPM ARCHITECT [facility] Comment:See NGS Report for R esults. Blood specimen (specimen) 06/04/2024 12:04 PM BPM ARCHITECT 06/04/2024 12:05 PM BPM ARCHITECT us Ramsey Harrington MD MOLECULAR ORDERABLES Final Resu lt Performing Organization Address [facility] Co de Phone Number [facility] [address], [address] [place] [address], [place] [phone] [facility] [address], [address] [place] [address] * [facility] DNA AND RNA SOLID TUMOR (06/04/2024 12:04 PM BPM ARCHITECT) [facility] Reason for Study To identify somatic and germline mutations relevant to patient's cancer. 07/03/2024 8:19 PM BPM ARCHITECT [facility] Genetic Diseases Assessed Cancer 07/03/2024 8:19 PM BPM ARCHITECT [facility] Description of Ranges of DNA Sequences Examined 648 gene panel 07/03/2024 8:19 PM BPM ARCHITECT [facility] Overall Interpretation positive 07/03/2024 8:19 PM BPM ARCHITECT [facility] MSI Stable 07/03/2024 8:19 PM BPM ARCHITECT [facility] TMB 3.2 m/MB 07/03/2024 8:19 PM BPM ARCHITECT [facility] [email or web address] 07/03/2024 8:19 PM BPM ARCHITECT [facility] Comment:[facility] Portal link Amendment Notes XT.V4 THIS AMENDED REPORT IS BEING ISSUED TO ADD POTENTIAL GERMLINE SEQUENCING RESULTS AND RECATEGORIZE VARIANTS BASED ON TUMOR-NORMAL PAIRED ANALYSIS. Copy number gains in CKS1B, MCL1, TIV4IG0, and KKJ780 were removed from the report. Variants of unknown significance were recategorized based on potential germline comparison. This patient harbors an amplification in ERBB2 (HER2). The antibody-drug conjugate fam-trastuzumab deruxtecan-nxki has been approved by the FDA for HER2-positive (IHC 3+) solid tumors. DNA amplification of ERBB2 (HER2) is frequently correlated with high protein expression. If clinically indicated, HER2 IHC is suggested.The tumor mutational burden (TMB) of this tumor-normal matched amendment is based on the tumor only analysis. 07/03/2024 8:19 PM BPM ARCHITECT [facility] Pertinent Negatives ESR1, PIK3CA 07/03/2024 8:19 PM BPM ARCHITECT [facility] Low Coverage Regions EPHB2, KDM5D, MYCL, PTPN22, RXRA, TGFBR1 07/03/2024 8:19 PM BPM ARCHITECT [facility] Therapy Count 12 07/03/2024 8:19 PM BPM ARCHITECT [facility] Tempus: Potential Therapy 1 Gene: 3430^ERBB2^HGNC Variant: ERBB2 Copy number gain Match Type: cnv Match Type Description: ERBB2 Copy number gain Agent: Ado-Trastuzumab Emtansine Drug Class: Anti-HER2 MAb Tissue: Breast Cancer Association: Response Evidence Status: Consensus Evidence ID: NCCN NCCN Associated Evidence: Consensus, Breast Cancer MSK Associated Evidence: MSK OncoKB, Level 1 Label: FDA On Label FDA Approved?: Yes On label?: Yes 07/03/2024 8:19 PM BPM ARCHITECT [facility] Tempus: Potential Therapy 2 Gene: 3430^ERBB2^HGNC Variant: ERBB2 Copy number gain Match Type: cnv Match Type Description: ERBB2 Copy number gain Agent: Margetuximab-cmkb Drug Class: Anti-HER2 MAb Tissue: Breast Cancer Association: Response Evidence Status: Consensus Evidence ID: NCCN NCCN Associated Evidence: Consensus, Breast Cancer MSK Associated Evidence: MSK OncoKB, Level 1 Label: FDA On Label FDA Approved?: Yes On label?: Yes 07/03/2024 8:19 PM BPM ARCHITECT [facility] Tempus: Potential Therapy 3 Gene: 3430^ERBB2^HGNC Variant: ERBB2 Copy number gain Match Type: cnv Match Type Description: ERBB2 Copy number gain Agent: Trastuzumab Drug Class: Anti-HER2 MAb Tissue: Breast Cancer Association: Response Evidence Status: Consensus Evidence ID: NCCN NCCN Associated Evidence: Consensus, Breast Cancer MSK Associated Evidence: MSK OncoKB, Level 1 Label: FDA On Label FDA Approved?: Yes On label?: Yes 07/03/2024 8:19 PM BPM ARCHITECT [facility] Tempus: Potential Therapy 4 Gene: 3430^ERBB2^HGNC Variant: ERBB2 Copy number gain Match Type: cnv Match Type Description: ERBB2 Copy number gain Agent: Capecitabine + Neratinib Drug Class: Combination (Pyrimidine Analog + Ly-HER TKI) Tissue: Breast Cancer Association: Response Evidence Status: Consensus Evidence ID: NCCN NCCN Associated Evidence: Consensus, Breast Cancer MSK Associated Evidence: MSK OncoKB, Level 1 Label: FDA On Label FDA Approved?: Yes On label?: Yes 07/03/2024 8:19 PM BPM ARCHITECT [facility] Tempus: Potential Therapy 5 Gene: 3430^ERBB2^HGNC Variant: ERBB2 Copy number gain Match Type: cnv Match Type Description: ERBB2 Copy number gain Agent: Capecitabine + Trastuzumab + Tucatinib Drug Class: Combination (Pyrimidine Analog + Anti-HER2 MAb + HER2 Inhibitor) Tissue: Breast Cancer Association: Response Evidence Status: Consensus Evidence ID: NCCN NCCN Associated Evidence: Consensus, Breast Cancer MSK Associated Evidence: MSK OncoKB, Level 1 Label: FDA On Label FDA Approved?: Yes On label?: Yes 07/03/2024 8:19 PM BPM ARCHITECT [facility] Tempus: Potential Therapy 6 Gene: 3430^ERBB2^HGNC Variant: ERBB2 Copy number gain Match Type: cnv Match Type Description: ERBB2 Copy number gain Agent: Lapatinib + Capecitabine Drug Class: Combination (Ly-HER TKI + Pyrimidine Analog) Tissue: Breast Cancer Association: Response Evidence Status: Consensus Evidence ID: NCCN NCCN Associated Evidence: Consensus, Breast Cancer MSK Associated Evidence: MSK OncoKB, Level 1 Label: FDA On Label FDA Approved?: Yes On label?: Yes 07/03/2024 8:19 PM BPM ARCHITECT [facility] Tempus: Potential Therapy 7 Gene: 3430^ERBB2^HGNC Variant: ERBB2 Copy number gain Match Type: cnv Match Type Description: ERBB2 Copy number gain Agent: Lapatinib + Letrozole Drug Class: Combination (Ly-HER TKI + Aromatase Inhibitor) Tissue: Breast Cancer Association: Response Evidence Status: Consensus Evidence ID: NCCN NCCN Associated Evidence: Consensus, Breast Cancer MSK Associated Evidence: MSK OncoKB, Level 1 Label: FDA On Label FDA Approved?: Yes On label?: Yes 07/03/2024 8:19 PM BPM ARCHITECT [facility] Tempus: Potential Therapy 8 Gene: 3430^ERBB2^HGNC Variant: ERBB2 Copy number gain Match Type: cnv Match Type Description: ERBB2 Copy number gain Agent: Neratinib Drug Class: Ly-HER TKI Tissue: Breast Cancer Association: Response Evidence Status: Consensus Evidence ID: NCCN NCCN Associated Evidence: Consensus, Breast Cancer MSK Associated Evidence: MSK OncoKB, Level 1 Label: FDA On Label FDA Approved?: Yes On label?: Yes 07/03/2024 8:19 PM BPM ARCHITECT [facility] Tempus: Potential Therapy 9 Gene: 3430^ERBB2^HGNC Variant: ERBB2 Copy number gain Match Type: cnv Match Type Description: ERBB2 Copy number gain Agent: Trastuzumab + Pertuzumab Drug Class: Combination (Anti-HER2 MAbs) Tissue: Breast Cancer Association: Response Evidence Status: Consensus Evidence ID: NCCN NCCN Associated Evidence: Consensus, Breast Cancer MSK Associated Evidence: MSK OncoKB, Level 1 Label: FDA On Label FDA Approved?: Yes On label?: Yes 07/03/2024 8:19 PM BPM ARCHITECT [facility] Tempus: Potential Therapy 10 Gene: 3430^ERBB2^HGNC Variant: ERBB2 Copy number gain Match Type: cnv Match Type Description: ERBB2 Copy number gain Agent: Trastuzumab + Fulvestrant Drug Class: Combination (Anti-HER2 MAb + Estrogen Receptor Antagonist) Tissue: Breast Cancer Association: Response Evidence Status: Consensus Evidence ID: NCCN NCCN Associated Evidence: Consensus, Breast Cancer Label: FDA Off Label FDA Approved?: Yes On label?: No 07/03/2024 8:19 PM BPM ARCHITECT [facility] Tempus: Potential Therapy 11 Gene: 3430^ERBB2^HGNC Variant: ERBB2 Copy number gain Match Type: cnv Match Type Description: ERBB2 Copy number gain Agent: Trastuzumab + Lapatinib Drug Class: Combination (Anti-HER2 MAb + Ly-HER TKI) Tissue: Breast Cancer Association: Response Evidence Status: Consensus Evidence ID: NCCN NCCN Associated Evidence: Consensus, Breast Cancer Label: FDA Off Label FDA Approved?: Yes On label?: No 07/03/2024 8:19 PM BPM ARCHITECT [facility]: Potential Therapy 12 Gene: 3430^ERBB2^HGNC Variant: ERBB2 Copy number gain Match Type: cnv Match Type Description: ERBB2 Copy number gain Agent: Trastuzumab Deruxtecan Drug Class: MAb-Drug Conjugate Tissue: Breast Cancer Association: Response Evidence Status: Consensus Evidence ID: NCCN NCCN Associated Evidence: Consensus, Breast Cancer MSK Associated Evidence: MSK OncoKB, Level 1 Label: FDA Off Label FDA Approved?: Yes On label?: No 07/03/2024 8:19 PM BPM ARCHITECT [facility] Trial Count 3 07/03/2024 8:19 PM BPM ARCHITECT [facility]: Clinical Trial Match 1 Clinical Trial NCT ID: [id number] Clinical Trial Title: Testing the Combination of Two Anti-cancer Drugs, DS-8201a and OAB0914, for The Treatment of Patients With Advanced Solid Tumors Expressing the HER2 Protein or Gene, The DASH Trial Clinical Trial URL: [email or web address] the [email or web address] Clinical Phase: Phase 1 Clinical Trial Matches: ERBB2 (HER2) amplification Clinical Trial Distance and Location: [address] [place], [place] 07/03/2024 8:19 PM BPM ARCHITECT [facility]: Clinical Trial Match 2 Clinical Trial NCT ID: [id number] Clinical Trial Title: TAPUR: Testing the Use of Food and Drug Administration (FDA) Approved Drugs That Target a Specific Abnormality in a Tumor Gene in People With Advanced Stage Cancer Clinical Trial URL: [email or web address] the [email or web address]/[email or web address] Clinical Phase: Phase 2 Clinical Trial Matches: ERBB2 (HER2) amplification Clinical Trial Distance and Location: [address] [facility] [place] 07/03/2024 8:19 PM BPM ARCHITECT [facility]: Clinical Trial Match 3 Clinical Trial NCT ID: [id number] Clinical Trial Title: Beamion LUNG-1: A Study to Test Different Doses of Zongertinib in People With Different Types of Advanced Cancer (Solid Tumours With Changes in the HER2 Gene) Clinical Trial URL: [email or web address] [email or web address] [email or web address] Clinical Phase: Phase 1 Clinical Trial Matches: ERBB2 (HER2) amplification Clinical Trial Distance and Location: [address], [place] 07/03/2024 8:19 PM BPM ARCHITECT [facility] xR Result 1 NEGATIVE Negative - This report is being issued to report the results of gene rearrangement and altered splicing analysis from RNA sequencing. No gene rearrangements nor reportable altered splicing events were identified from RNA sequencing. 07/03/2024 8:19 PM BPM ARCHITECT [facility] Germline Variant Note No potential germline variants were found in the limited set of genes on which we report. 07/03/2024 8:19 PM BPM ARCHITECT [facility] Tissue specimen (specimen) 06/04/2024 12:04 PM BPM ARCHITECT 06/08/2024 12:31 PM BPM ARCHITECT Narrative This result has genomic variants that were not included in this document. us Ramsey Harrington MD MOLECULAR ORDERABLES Edited Res ult - Final [facility] [address], [address] [place] [address], [facility] [address], [address] [place] [address] * MAMMO DIAGNOSTIC UNI LEFT W OR WO CAD (01/04/2024 11:31 AM CDT) Anatomical Region Laterality Modality Breast Left Other us Ramsey Harrington MD MAMMO ORDERABLES Final Result from Last 3 Months or Most Recently Relevant to Health Maintenance [place] [address] [id number] Advance Directives For more information, please contact: [phone] Documents on File Type Date Recorded 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
--- OUTSIDE RECORDS SUMMARY | 2024-08-02 17:31 | XMS_ITS | Patient Health Summary ---
Author Organization [facility] Address [address] [place] [address] Care Team Providers Care Tire Design Engineer Name Role Phone Robby Doyle MD Primary Care Provider [phone] Note from [facility],non-owned Affiliates and Associated Physician Practices is amultiple site organization consisting of ambulatory clinics and hospital sitesin [place], [place], [place] and [place]. This disclosure is being madepursuant to the Care Everywhere program and may not contain all information available regarding this patient. Last updated 18.[facility] [employer] Allergies * Morphine(Itching) * Sulfa Drugs(Mouth sores) Medications * Be aware that medications may not be up to date on this document. Alwaysverify current medications with the patient. * lisinopril-hydrochlorothiazide (PRINIZIDE; ZESTORETIC) 10-12.5 MG tablet Take 1 Tab by mouth daily. 1/2 tab; Take am of OR * gabapentin (NEURONTIN) 600 MG tablet Take 600 mg by mouth at bedtime. * MULTIVITAL PO Take by mouth daily. * ESTRASORB TD Apply to skin. As Directed * VITAMIN D PO Take by mouth. As Directed * CALCIUM PO Take by mouth. As Directed * aspirin 81 MG tablet Take 1 Tab by mouth daily. * IBUPROFEN PO Active Problems Problem Noted Date Diagnosed Date Low back pain radiating to right lower extremity 06/04/2009 Preoperative examination 04/09/2009 Social History Tobacco Use Types Packs/Day Years [...] 90.7 kg (200 lb) 06/11/2009 12:08 PM [employer] T[employer]ER Height 161.3 cm (5' 3.5 ) 06/11/2009 12:08 PM CS T Body Mass Index 34.87 06/11/2009 12:08 PM [employer] T[employer]ER Procedures * MRI BREAST BILAT WWO CONTRAST(Performed 11/30/2016) * CREATININE BLOOD - POCT (IP) [facility](Performed 11/30/2016) * MRI BREAST BILAT WWO CONTRAST(Performed 07/06/2016) * CREATININE BLOOD - POCT (IP) [facility](Performed 07/06/2016) * MRIO L SPINE WWO CONT(Performed 09/18/2010) Performed for Lumbago * CARDIAC RHYTHM STRIP ORDER(Performed 05/06/2009) * CARDIAC EKG ORDER(Performed 04/30/2009) * XR LUMBAR SPINE IN OR 1VW(Performed 04/14/2009) Performed for Back Pain * CARDIAC EKG ORDER(Performed 04/10/2009) * TYPE + SCREEN PANEL(Performed 04/09/2009) Performed for Preoperative Examination * URINALYSIS REFLEX TO MICROSCOPIC NO CULTURE(Performed 04/09/2009) Performed for Preoperative Examination * BASIC METABOLIC PANEL (CALCIUM TOTAL)(Performed 04/09/2009) Performed for Preoperative Examination Results * MRI BREAST BILAT WWO CONTRAST (11/30/2016 10:12 AM CDT) Only the most recent of2 resultswithin the time period is included. Anatomical Region Laterality Modality Breast Bilateral Other Impressions 12/02/2016 2:52 PM CDT IMPRESSION: Right breast: 1. ?? Interval resolution of previously noted non-mass enhancement in upper central right breast, consistent with complete imaging response to treatment. 2. ??No right axillary adenopathy. Left breast: No MR evidence of malignancy in left breast. ASSESSMENT: BI-RADS category 6: Known biopsy-proven cancer. RECOMMENDATION: Patient is already under the care of Dr. Yue Valverde. Biopsy clip in the right breast (marking site of previously documented malignancy) is amenable for mammographic guided wire localization. This report was electronically signed by CHRISTINE PRESLEY M.D. ??on 12/02/2016 2:52 PM . 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 COMPARISON: Comparison was made to previous Breast MR on 07/06/2016. TECHNIQUE: Multiplanar multisequence MR imaging of both breasts before and following the administration of 7 cc of Gadavist. Dynamic phase imaging was performed in the axial plane. Exam was processed by and interpreted on a [employer] summons server including 3-D volume rendering, subtraction image processing and contrast kinetic analysis. FINDINGS: Background tissue pattern: Scattered fibroglandular tissue. Degree of background parenchymal enhancement: Minimal, symmetric. RIGHT BREAST: There has been interval resolution of the previously seen extensive nonmass enhancement centered in the upper central right breast. No suspicious mass or nonmass enhancement is seen in the right breast. There is no abnormality of the skin, chest wall, or nipple-areolar complex. There has been interval decrease in previously noted cortical thickening involving a right axillary node. No right axillary or internal mammary adenopathy is seen. LEFT BREAST: There is no suspicious mass or area of abnormal enhancement in the left breast. There is no abnormality of the left axilla, chest wall, or nipple areolar complex. Procedure Note Christine Presley MD - 10/07/2017 BILATERAL BREAST MRI HISTORY: 56-year-old female status post neoadjuvant chemotherapy forright breast cancer (mixed invasive ductal and lobular carcinoma), herefor MR to evaluate response to treatment. COMPARISON: Comparison was made to previous Breast MR on 07/06/2016. TECHNIQUE: Multiplanar multisequence MR imaging of both breasts before andfollowing the administration of 7 cc of Gadavist. Dynamic phase imagingwas performed in the axial plane. Exam was processed by and interpreted [employer] summons server including 3-D volume rendering, subtraction image processing and contrast kineticanalysis. FINDINGS: Background tissue pattern: Scattered fibroglandular tissue. Degree of background parenchymal enhancement: Minimal, symmetric. RIGHT BREAST: There has been interval resolution of the previously seen extensivenonmass enhancement centered in the upper central right breast. Nosuspicious mass or nonmass enhancement is seen in the right breast. Thereis no abnormality of the skin, chest wall, or nipple-areolar complex. There has been interval decrease in previously noted cortical thickeninginvolving a right axillary node. No right axillary or internal mammaryadenopathy is seen. LEFT BREAST: There is no suspicious mass or area of abnormal enhancement in the leftbreast. There is no abnormality of the left axilla, chest wall, or nippleareolar complex. IMPRESSION IMPRESSION: Right breast: 1. Interval resolution of previously noted non-mass enhancement in uppercentral right breast, consistent with complete imaging response totreatment. 2. No right axillary adenopathy. Left breast: No MR evidence of malignancy in left breast. ASSESSMENT: BI-RADS category 6: Known biopsy-proven cancer. RECOMMENDATION: Patient is already under the care of Dr. Yue Valverde. Biopsy clip inthe right breast (marking site of previously documented malignancy) isamenable for mammographic guided wire localization. This report was electronically signed by CHRISTINE PRESLEY M.D. on12/02/2016 2:52 PM . Historical Provider MR ORDERABLES * (ABNORMAL) CREATININE BLOOD - POCT (IP) [facility] (11/30/2016) Only the most recent of2 resultswithin the time period is included. Creatinine POCT 1.05 0.3 - 1.3 mg/dL [facility] eGFR POCT 58(A) 60 ml/min [facility] 11/30/2016 Maritza Stewart MD LAB - POINT OF MD RE ORDERABLES [facility] * MRIO L SPINE WWO CONT (09/18/2010 3:21 PM [employer]ENTER FRAME BACK TENDER) Anatomical Region Laterality Modality Magnetic Resonan ce Angiography 09/18/2010 4:17 PM [employer] BACK TENDER Impressions 09/18/2010 5:51 PM [employer]ENTER FRAME BACK TENDER NO CRITICAL NARROWING IS PRESENT AT ANY LEVEL. ??DEGENERATIVE CHANGES AT L4-L5 CONTRIBUTE TO MILD BILATERAL NEURAL FORAMINAL NARROWING. Narrative 09/18/2010 5:51 PM TENTER FRAME BACK TENDER MRI LUMBAR SPINE INDICATION: Back surgery, low back pain and right hip pain TECHNIQUE: Sagittal T1-T2 and STIR images of the lumbosacral spine are provided. Postcontrast axial and sagittal T1-weighted images are performed. The patient received 18 mL of gadolinium Omniscan IV contrast. FINDINGS: There is normal alignment. There is normal marrow signal. There is a mild degree of metallic artifact in the soft tissues posterior to the L4 level. The following levels are considered directly in the axial plane: L5-S1: No critical narrowing. L4-L5: Mild anterolisthesis with a broad-based disc bulge. These findings contribute to mild flattening of the thecal sac without critical narrowing. There is mild bilateral neural foraminal narrowing. L3-L4: No critical narrowing. L2-L3: No critical narrowing. L1-L2: No critical narrowing. On the postcontrast images there is no abnormal enhancement identified. The appears to be a small defect at the right lamina, L5 level. Procedure Note Lena Lovell MD - 09/18/2010 MRI LUMBAR SPINE INDICATION: Back surgery, low back pain and right hip pain TECHNIQUE: Sagittal T1-T2 and STIR images of the lumbosacral spine are provided. Postcontrast axial and sagittal T1-weighted images are performed. The patient received 18 mL of gadolinium Omniscan IV contrast. FINDINGS: There is normal alignment. There is normal marrow signal. There is a mild degree of metallic artifact in the soft tissues posterior to the L4 level. The following levels are considered directly in the axial plane: L5-S1: No critical narrowing. L4-L5: Mild anterolisthesis with a broad-based disc bulge. These findings contribute to mild flattening of the thecal sac without critical narrowing. There is mild bilateral neural foraminal narrowing. L3-L4: No critical narrowing. L2-L3: No critical narrowing. L1-L2: No critical narrowing. On the postcontrast images there is no abnormal enhancement identified. The appears to be a small defect at the right lamina, L5 level. IMPRESSION NO CRITICAL NARROWING IS PRESENT AT ANY LEVEL. DEGENERATIVE CHANGES AT L4-L5 CONTRIBUTE TO MILD BILATERAL NEURAL FORAMINAL NARROWING. Joe Prado MD MR ORDERABLES * CARDIAC RHYTHM STRIP ORDER (05/06/2009 12:14 PM CDT) Narrative 05/06/2009 12:14 PM CDT Ordered by an unspecified provider. Transcriptions Document, Scanned - 04/14/2009 12:00 AM CDT Scanned Document CARDIAC SERVICES ORD ERABLES * CARDIAC EKG ORDER (04/30/2009 8:17 AM CDT) Only the most recent of2 resultswithin the time period is included. Narrative 04/30/2009 8:17 AM CDT Ordered by an unspecified provider. Transcriptions Document, Scanned - 04/09/2009 12:00 AM CDT Scanned Document CARDIAC SERVICES ORD ERABLES * XR SPINE LUMBAR SINGLE VIEW (04/14/2009 8:59 AM CDT) Anatomical Region Laterality Modality Spine Radiographic Hue ging 04/14/2009 9:08 AM CDT Narrative 04/14/2009 9:50 AM CDT INDICATION: Back pain. FINDINGS: Crosstable lateral view of the lumbar spine is obtained intraoperatively. This was submitted for interpretation following completion of the procedure. This demonstrates radiopaque surgical instrument superficial to the morphologic L4 vertebral body. Procedure Note Susanne Wallace - 04/14/2009 INDICATION: Back pain. FINDINGS: Crosstable lateral view of the lumbar spine is obtained intraoperatively. This was submitted for interpretation following completion of the procedure. This demonstrates radiopaque surgical instrument superficial to the morphologic L4 vertebral body. Joe Prado MD DIAGNOSTIC IMAGING O RDERABLES * URINALYSIS ROUTINE AUTO (04/09/2009 12:00 PM CDT) Color UA YELLOW [facility] Character UA CLEAR [facility] Specific [place] UA 1.012 1.005 - 1.0300 [facility] pH UA 8.0 4.6 - 8.0 pH Units [facility] Leukocyte UA NEGATIVE Negative /ul [facility] Nitrite UA NEGATIVE Negative [facility] Protein UA NEGATIVE Negative mg/dl [facility] Glucose UA NEGATIVE Normal mg/dl [facility] Ketone UA NEGATIVE Negative mg/dl [facility] Urobilinogen UA 0.2 Normal Duran Units [facility] Bilirubin UA NEGATIVE Negative mg/dl [facility] Blood UA NEGATIVE Negative /ul [facility] WBC UA <5 /HPF [facility] RBC UA <5 /HPF [facility] Epithelial Cell UA <5 /HPF [facility] Casts UA <2 /LPF [facility] Bacteria UA NEGATIVE [facility] URINE / Unknown 04/09/2009 1 2:00 PM CDT 04/09/2009 12:27 PM CDT Joe Prado MD LAB - URINALYSIS ORD ERABLES Performing Organization Address [facility] Co de Phone Number [facility] [id number] [place] [id number] * TYPE + SCREEN PANEL (04/09/2009 12:00 PM CDT) ABO Rh O Pos [facility] Antibody Screen Neg Negative [facility] BLOOD SPECIMEN / Unknown 04/09/2009 12:00 PM CDT 04/09/2009 12:26 PM CDT Joe Prado MD LAB - BLOOD BANK ORD ERABLES Performing Organization Address [facility] de Phone Number [facility] [address] [place] [address] * (ABNORMAL) BASIC METABOLIC PANEL (CALCIUM TOTAL) (04/09/2009 12:00 PM CDT) BUN 13 7.0 - 17.0 mg/dl [facility] Sodium 136(L) 137 - 145 mmol/L [facility] Potassium 3.9 3.6 - 5.0 mmol/L [facility] Chloride 100 98.0 - 107.0 mmol/L [facility] CO2 32(H) 22.0 - 30.0 mEq/L [facility] Anion Gap 4.7 [facility] Glucose 102 75 - 110 mg/dl [facility] Creatinine 0.8 0.7 - 1.2 mg/dl [facility] Calcium 9.8 8.4 - 10.2 mg/dl [facility] eGFR by MDRD 82.1 ml/min/1.7 3m2 [facility] BLOOD SPECIMEN / Unknown 04/09/2009 12:00 PM CDT 04/09/2009 12:27 PM CDT Joe Prado MD LAB - CHEMISTRY SERJIO PERAZA [facility] Organization Address City/State/ZIP Co de Phone Number [facility] [address] [place] [address] Care Teams Tire Design Engineer Relationship Specialty Start Date End Date Robby Doyle MD [address] [place] [address] PCP - General 04/14/09
--- OUTSIDE RECORDS SUMMARY | 2024-08-02 17:31 | XMS_ITS ---
Author Organization [facility] Address [facility] [place] [address] Care Team Providers Care French Comber Name Role Phone Robby Doyle MD Primary Care Provider + Active Problems Problem Noted Date Diagnosed Date [...] Mixed hyperlipidemia 07/20/2016 Restless leg syndrome 07/20/2016 Current Treatment and Therapy Plans No current plan information found. Past Treatment and Therapy Plans No past plan information found. Lifetime Dose Tracking * Chemical Lifetime Dose Automatic Entry Manual Entr y Total DLP 164.4 DLP 164.4 DLP 0 DLP CTDIvol Max 9.9 mGy 9.9 mGy 0 mGy
--- OUTSIDE RECORDS SUMMARY | 2024-08-02 17:31 | XMS_ITS | Referral Summary ---
Author Organization [facility] Address [address] [place] [address] Care Team Providers Care Hat Cleaner Name Role Phone Robby Doyle MD Primary Care Provider [phone] [facility],non-owned Affiliates and Associated Physician Practices is amultiple site organization consisting of ambulatory clinics and hospital sitesin [place], [place], [place] and [place]. This disclosure is being madepursuant to the Care Everywhere program and may not contain all information available regarding this patient. Last updated 18.[facility] Allergies Active Allergy Reactions Criticality Noted Date [...] extremity 06/04/2009 Overview (05/18/2015): Preoperative examination 04/09/2009 Social History Tobacco Use [...] 90.7 kg (200 lb) 06/11/2009 12:08 PM [employer] Height 161.3 cm (5' 3.5 ) 06/11/2009 12:08 PM CS T Body Mass Index 34.87 06/11/2009 12:08 PM [employer] Plan of Treatment Not on file Care Teams Hat Cleaner Relationship Specialty Start Date End Date Robby Doyle MD [address] [place] [id number] PCP - General 04/14/09
--- OUTSIDE RECORDS SUMMARY | 2024-08-02 17:32 | XMS_ITS | Referral Summary ---
Author Organization [facility] [address] Address [address] [place] [address] Care Team Providers Care Director Of Corporate Real Estate Name Role Phone Robby Doyle MD Primary Care Provider [phone] Encounters Date Type Department Care Team Description 07/12/2024 Telephone [facility] Orthopedics and Sports Medicine at [address] [address] Daniel Stock Jr., MD 06/06/2024 11:04 AM INTERMEDIATE PROJECT MANAGER - 06/06/2024 11:59 PM INTERMEDIATE PROJECT MANAGER Hospital Encounter [facility] [address] [place] [phone] Discharge Disposition: Discharge to home or self care 06/06/2024 10:45 AM INTERMEDIATE PROJECT MANAGER Office Visit [facility] Orthopedics and Sports Medicine at [address] [address] Daniel Stock Jr., MD Arthritis of left ankle (Primary Dx) 05/17/2024 2:50 PM INTERMEDIATE PROJECT MANAGER - 05/17/2024 11:59 PM INTERMEDIATE PROJECT MANAGER Hospital Encounter [facility] [address] [place] [phone] Discharge Disposition: Discharge to home or self care 05/17/2024 2:30 PM INTERMEDIATE PROJECT MANAGER Office Visit [facility] Orthopedics and Sports Medicine at [address] [phone] Shauna Leyva PA Arthritis of left ankle (Primary Dx); Cavus deformity of left foot from Last 3 Months Allergies Active Allergy Reactions Criticality Noted Date Comments Lisinopril Itching Low 06/07/2018 Cholinergic urteria Morphine Itching Low 06/06/2018 Sulfa (Sulfonamide Antibiotics) Other (See comments) Low 06/06/2018 Mouth sores Medications pantoprazole DR (PROTONIX) 40 mg EC tablet Take 1 tablet (40 mg total) by mouth daily Active losartan (COZAAR) 25 mg tablet Take 1 tablet (25 mg total) by mouth daily Active colesevelam (WELCHOL) 625 mg tablet Take 3 tablets (1,875 mg total) by mouth 2 (two) times a day with meals Active calcium carb/D3/magnesiu m/zinc (CALCIUM CARB-D3-MAG TQS57-KJDC) [phone] ns-grdm-tg-mg tablet Take 3 tablets by mouth daily Active iron 18 mg tablet Take 1 tablet by mouth 3 (three) times a week - Active cholecalciferol (VITAMIN D-3) 25 mcg (1,000 unit) tablet Take 1 tablet (1,000 Units total) by mouth daily Active cyanocobalamin, vitamin B-12, 5,000 mcg capsule Take 5,000 mcg by mouth daily Active cyclobenzaprine (FLEXERIL) 10 mg tablet TAKE 1 TABLET BY MOUTH EVERY 8 TO 12 HOURS NEEDED Active fluticasone propionate (FLONASE) 50 mcg/actuation nasal spray Administer 2 sprays into each nostril daily Active folic acid (FOLVITE) 800 mcg tablet Take 1 tablet (800 mcg total) by mouth daily Active ibuprofen (ADVIL,MOTRIN) 800 mg tablet Take 1 tablet (800 mg total) by mouth 2 (two) times a day as needed Active potassium chloride ER 10 mEq CR tablet Take 1 tablet/capsule (10 mEq total) by mouth every evening 4 Active pseudoephedrine (SUDAFED) 30 mg tablet Take 1 tablet (30 mg total) by mouth as needed Active pregabalin (LYRICA) 75 mg capsule TAKE 1 CAPSULE 2 TO 3 TIMES DAILY 3 Active scopolamine 1 mg over 3 days patch [address] 1 patch on the skin once 4 Active cetirizine HCl (ZYRTEC ORAL) Take 1 tablet by mouth daily Active acetaminophen ER (TYLENOL) 650 mg 8 hr tablet Take 1 tablet (650 mg total) by mouth every 8 (eight) hours as needed for pain Active aspirin 325 mg enteric coated tabletIndication s:Deep Vein Thrombosis Prevention Take 1 tablet (325 mg total) by mouth 2 (two) times a day with meals 60 tablet 4 Active oxyCODONE-acetam inophen (PERCOCET) 5-325 mg per tabletIndication s:Pain Take 1 tablet by mouth every 4 (four) hours as needed for pain 40 tablet 4 Active Additional Information Patient not taking.Reported on 06/06/2024 traMADoL (ULTRAM) 50 mg tabletIndication s:Arthritis of left ankle,Cavus deformity of left foot Take 1 tablet (50 mg total) by mouth every 6 (six) hours as needed for pain 20 tablet 4 Active Additional Information Patient not taking.Reported on 06/06/2024 naloxone (NARCAN) 4 mg/actuation spray,non-aeroso lIndications:Opi ate-Induced Respiratory Depression,Opioi d Toxicity,risk mitigation for opioid overdose Administer 1 spray into affected nostril(s) as needed for opioid reversal or respiratory depression Call 911. Administer a single spray in one nostril. Repeat every 3 minutes as needed if no or minimal response. 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 Estrogen receptor positive 01/17/2018 Costochondritis 11/22/2017 History of antineoplastic chemotherapy 8 History of radiation therapy 11/22/2017 Lymphedema 11/22/2017 Obesity (BMI 35.0-39.9 without comorbidity) 10/09 Benign hypertension 07/20/2016 Mixed hyperlipidemia 07/20/2016 Restless leg syndrome 07/20/2016 Low back pain radiating to right lower extremity 06/04/2009 Overview (02/08/2024): Social History Tobacco Use Types Packs/Day Years Used Date Smoking Tobacco: Never Smokeless Tobacco: Never Tobacco Cessation:Counseling Given: Not Answered Alcohol Use Standard Drinks/Week Comments No 0 (1 standard drink = 0.6 oz pur e alcohol) [facility] Utilities Answer Date Recorded In the past 12 months has th e [employer], gas, oil, or water [employer] threatened to shut off services in your home? No 03/21/2024 Social Connection and Isolat ion Panel [NHANES] Answer Date Recorded In a typical week, how many times do you talk on the phone with family, friends, or neighbors? More than three times a week 03/21/2024 How often do you get togethe r with friends or relatives? More than three times a week 03/21/2024 How often do you attend [facility] or baptism services? Never 03/21/2024 Do you belong to any clubs o r organizations such as methodist groups, unions, fraternal or athletic groups, or school groups? No 03/21/2024 How often do you attend meet ings of the clubs or organizations you belong to? Never 03/21/2024 Are you , , di vorced, , never , or living with a partner? 03/21/2024 AUDIT-C Answer Date Recorded Q1: How often do you have a drink containing alcohol? Never 03/20/2024 Q2: How many drinks containi ng alcohol do you have on a typical day when you are drinking? Patient does not drink Q3: How often do you have si x or more drinks on one occasion? Never 03/20/2024 Overall Financial Resource Strain (CARDIA) Answe r Date Recorded How hard is it for you to pa y for the very basics like food, housing, medical care, and heating? Not hard at all 03/21/2024 Hunger Vital Sign Answer Date Recorded Within the past 12 months, y ou worried that your food would run out before you got the money to buy more. Never true 03/21/20 24 Within the past 12 months, t he food you bought just didn't last and you didn't have money to get more. Never true 03/21/2024 PRAPARE - Transportation Answer Date Re corded In the past 12 months, has l ack of transportation kept you from medical appointments or from getting medications? No 03/11 In the past 12 months, has l ack of transportation kept you from meetings, work, or from getting things needed for daily living? No 03/21/2024 Housing Stability Vital Sign Answer Gus e Recorded In the last 12 months, was t here a time when you were not able to pay the mortgage or rent on time? No 03/21/2024 In the past 12 months, how m any times have you moved where you were living? 1 03/21/2024 At any time in the past 12 m [facility], were you homeless or living in a usp (including now)? No 03/21/2024 Personal Safety Answer Date Recorded Have you ever been in or are you currently in a harmful physical or emotional relationship or is someone making you feel afraid or unsafe? Denies 03/20/2024 Comments Unknown Sex and Gender Information Value Date Recorded Sex Assigned at Not on file Legal Sex Female 3:14 AM INTERMEDIATE PROJECT MANAGER Gender Identity Not on file Sexual Orientation Not on file Last Filed Vital Signs Vital Sign Reading Time Taken Comments Blood Pressure 132/77 03/21/2024 12:11 PM CDT Pulse 93 03/21/2024 12:11 PM CDT Temperature 36.8 ??C (98.3 ??F) 03/21/2024 12:11 PM C DT Respiratory Rate 19 03/21/2024 12:11 PM CDT Oxygen Saturation 100% 03/21/2024 12:11 PM CDT Inhaled Oxygen Concentration - - Weight 68.5 kg (151 lb) 04/23/2024 11:12 AM CDT Height 154.9 cm (5' 1 ) 06/06/2024 10:34 AM INTERMEDIATE PROJECT MANAGER Body Mass Index 28.53 04/23/2024 11:12 AM CDT Plan of Treatment Not on file Medical Devices Implanted Type Area Explosive Man Device Identifier Shelf Expiration Date Model / Serial / Lot [employer] Biofoam Remy 22mm [id number] 22mm Wedge Augmentation Sterile [id number] - [id number] Implanted:Qty: 1 on 03/20/2024 by Daniel Stock Jr., MD at [facility] Left: Ankle [employer] [id number] 12/16/2027 [id number] / / [id number] [employer] Ortholoc 3di 5.5mm 38mm Nonlocking Cortical Thread Low Profile [id number] - [id number] Implanted:Qty: 1 on 03/20/2024 by Daniel Stock Jr., MD at [facility] Left: Ankle [employer] [id number] / / [employer] Allomatrix C Allograft Putty Large Graft 10ml Bone Demineralized 86xc-1000 - [id number] - [id number] Implanted:Qty: 1 on 03/20/2024 by Daniel Stock Jr., MD at [facility] Left: Ankle [employer] [id number] 05/14/2028 86XC-1000 / [id number] / [employer] Graft Bone Augment 3cc Allograft Injectable Kit [id number] - [id number] Implanted:Qty: 1 on 03/20/2024 by Daniel Stock Jr., MD at [facility] Left: Ankle [employer] 03/07/2026 [id number] / / [id number] [employer] Ortholoc 90mm 3x1 Hole Compression 3di Technology Left Anterior [id number] - [id number] Implanted:Qty: 1 on 03/20/2024 by Daniel Stock Jr., MD at [facility] Left: Ankle [employer] [id number] / / [employer] Salvation Ortholoc 5.5mm 30mm Lock On [place] Polyaxial Self Tap [id number] - [id number] Implanted:Qty: 1 on 03/20/2024 by Daniel Stock Jr., MD at [facility] Left: Ankle [employer] [id number] / / [employer] Screw Bone Cortical Full Thread Non Locking Ortholoc 3di 5.5x60mm Ti [id number] - [id number] Implanted:Qty: 1 on 03/20/2024 by Daniel Stock Jr., MD at [facility] Left: Ankle [employer] [id number] / / [employer] Ortholoc 5.5mm 32mm 3di Technology Locking Polyaxial Cortical [id number] - [id number] Implanted:Qty: 1 on 03/20/2024 by Daniel Stock Jr., MD at [facility] Left: Ankle [employer] [id number] / / [employer] Salvation Ortholoc 5.5mm 36mm Lock On [place] Polyaxial Self Tap [id number] - [id number] Implanted:Qty: 1 on 03/20/2024 by Daniel Stock Jr., MD at [facility] Left: Ankle [employer] [id number] / / [employer] Salvation Ortholoc 5.5mm 34mm Lock On [place] Polyaxial Self Tap [id number] - [id number] Implanted:Qty: 1 on 03/20/2024 by Daniel Stock Jr., MD at [facility] Left: Ankle [employer] [id number] / / Procedures Procedure Name Priority Date/Time Associated Diagnosis Comments XR ANKLE LEFT 3 OR MORE VIEWS Schedule Routine, Read Routine (OP Routine) 06/06/2024 11:35 AM INTERMEDIATE PROJECT MANAGER Arthritis of left ankle XR ANKLE LEFT 3 OR MORE VIEWS Schedule Routine, Read Routine (OP Routine) 05/17/2024 10:41 PM INTERMEDIATE PROJECT MANAGER Arthritis of left ankle Cavus deformity of left foot from Last 3 Months Results * XR Ankle Left 3 or More Views (06/06/2024 11:35 AM INTERMEDIATE PROJECT MANAGER) Anatomical Region Laterality Modality Lower Extremities, Ankle Left Compute d Radiography Narrative 06/06/2024 11:35 AM INTERMEDIATE PROJECT MANAGER Left ankle three views weight-bearing shows the ankle fusion with the bio foam wedge shows to be in good position alignment. ??Do not see him at any loosening of any of the hardware. ??Increased consolidation is noted around the area. ??Actually do not see any fracture or joint lines. Daniel Stock Jr., MD IMG XR PROCEDURES F inal Result * XR Ankle Left 3 or More Views (05/17/2024 10:41 PM INTERMEDIATE PROJECT MANAGER) Anatomical Region Laterality Modality Lower Extremities, Ankle Left Compute d Radiography Narrative 05/17/2024 10:41 PM INTERMEDIATE PROJECT MANAGER X-rays Left ankle-3 views non-weightbearing demonstrates a tibiotalar and talocalcaneal arthrodesis with a bio foam wedge and graft. Plate and screws present anteriorly with good position/alignment of the plate with no evidence of any hardware loosening or failure. Good alignment of her left foot and ankle. Joints appear to be fusing but not yet fully fused. Prior calcaneal osteotomy. us Shauna PHILLIPS IMG XR PROCEDURES Edited Res ult - Final from Last 3 Months Insurance CHOICE PLUS CHOICE PLUS Ho [address] CHOICE PLUS Advance Directives For more information, please contact: [phone] * Full Code (Latest Code Status on File) Date Activated Date Inactivated Comments 03/20/2024 11:40 AM 03/21/2024 6:54 PM Care Teams Director Of Corporate Real Estate Relationship Specialty Start Date End Date Robby Doyle MD [address] [place] [address] PCP - General Internal Medicine 02/14/18
--- OUTSIDE RECORDS SUMMARY | 2024-08-02 17:32 | XMS_ITS | Clinical Summary ---
Author Organization [facility] [address] Address [address] [place] [address] Care Team Providers Care Calculus Professor Name Role Phone Robby Doyle MD Primary Care Provider [phone] Allergies Active Allergy Reactions Criticality Noted Date [...] meals Active calcium carb/D3/magnesiu m/zinc (CALCIUM CARB-D3-MAG DFY70-CJAR) [phone] dy-jfml-fn-mg tablet Take 3 tablets by mouth daily Active iron 18 mg tablet Take 1 tablet by mouth 3 (three) times a week -- Active cholecalciferol (VITAMIN D-3) 25 mcg (1,000 [...] to right lower extremity 06/04/2009 Overview (02/08/2024): Encounters Date Type Department Care Team Description 07/12/2024 Telephone [facility] Medical Group Orthopedics and Sports Medicine at [address] [phone] Daniel Stock Jr., MD 06/06/2024 11:04 AM PAPER CONTROL CLERK - 06/06/2024 11:59 PM PAPER CONTROL CLERK Hospital Encounter [facility] [address] [place] [phone] Discharge Disposition: Discharge to home or self care 06/06/2024 10:45 AM PAPER CONTROL CLERK Office Visit [facility] Medical Group Orthopedics and Sports Medicine at [address] [phone] Daniel Stock Jr., MD Arthritis of left ankle (Primary Dx) 05/17/2024 2:50 PM PAPER CONTROL CLERK - 05/17/2024 11:59 PM PAPER CONTROL CLERK Hospital Encounter [facility] [address] [place] [phone] Discharge Disposition: Discharge to home or self care 05/17/2024 2:30 PM PAPER CONTROL CLERK Office Visit [facility] Medical Group Orthopedics and Sports Medicine at [address] [phone] Shauna Leyva PA Arthritis of left ankle (Primary Dx); Cavus deformity of left foot from Last 3 Months Surgical History Surgery Date Site/Laterality Comments HYSTERECTOMY 07/11/2003 - 07/10/2004 MASTECTOMY 01/08/2017 - 02/07/2017 Right FOOT SURGERY 07/11/2015 - 07/10/2016 BREAST SURGERY CHOLECYSTECTOMY 07/11/2012 - 07/10/2013 ? unsure of year MICRODISCECTOMY Medical History Medical History Date Comments Hypertension Back pain Acid reflux Arthritis Frequent headaches Arthritis of left ankle PONV (postoperative nausea and vomiting) History of anemia Portal vein thrombosis History Factor 5 Leiden mutation H/O arthrodesis 03/20/2024 Family History Medical History Relation Name Comments Hypertension Father Pancreatic cancer Father Diabetes Mother Hypertension Mother Hypertension Sister Relation Name Status Comments Father Mother Sister Social History Tobacco Use Types Packs/Day Years Used Date Smoking Tobacco: Never Smokeless Tobacco: Never Tobacco Cessation:Counseling Given: Not Answered Alcohol Use Standard Drinks/Week Comments No 0 (1 standard drink = 0.6 oz pur e alcohol) [facility] Utilities Answer Date Recorded In the past 12 months has [employer] electric, gas, oil, or water company threatened to shut off services in your [...] week 03/21/2024 How often do you attend chur ch or restorationism services? Never 03/21/2024 Do you belong to any clubs o r organizations such as congregation groups, unions, fraternal or athletic groups, or [...] any time in the past 12 m [facility], were you homeless or living in a alf (including now)? No 03/21/2024 Personal Safety Answer Date Recorded Have you ever been in or are you currently in a harmful physical or emotional relationship or is someone making you feel afraid or unsafe? Denies 03/20/2024 Comments Unknown Sex and Gender Information Value Date Recorded Sex Assigned at Not on file Legal Sex Female 3:14 AM PAPER CONTROL CLERK Gender Identity Not on file Sexual Orientation Not on file Obstetrics History Last Filed Vital Signs Vital Sign Reading [...] cm (5' 1 ) 06/06/2024 10:34 AM PAPER CONTROL CLERK Body Mass Index 28.53 04/23/2024 11:12 AM CDT Plan of Treatment Health Maintenance Due Date Last Done Comments Colon Cancer Screening-Colonoscopy 1962 Depression Screening 1962 Hepatitis C Screening 1962 Hepatitis B Screening 1980 Regular Well Visit/Exam 18-64 1980 Zoster Vaccine (1 of 2) 2012 Breast Cancer Screening-Mammogram 11/15/2019 11/14/2018 Covid-19 Vaccine (4 - 2023-2 5 season) 2024 05/21/2021, 08/29/2020, 07/31/2020 Influenza Vaccine (#1) 2024 4, 05/11/2013 DTaP/Tdap/Td Vaccine (2 - Td or Tdap) 12/06/2033 12/07/2023 Pneumococcal vaccine <65 Aged Out No longer eligible based on patient's age to complete this topic Medical Devices Implanted Type Area Drywall Taper Helper Device Identifier Shelf Expiration Date Model / Serial / Lot [email or web address] Biofoam Remy 22mm [id number] 22mm Wedge Augmentation Sterile [id number] - [id number] Implanted:Qty: 1 on 03/20/2024 by Daniel Stock Jr., MD at Left: Ankle [email or web address] [id number] 12/16/2027 [id number] / / [id number] [email or web address] Ortholoc 3di 5.5mm 38mm Nonlocking Cortical Thread Low Profile [id number] - [id number] Implanted:Qty: 1 on 03/20/2024 by Daniel Stock Jr., MD at Left: Ankle [email or web address] [id number] / / [employer] Allomatrix C Allograft Putty Large Graft 10ml Bone Demineralized 86xc-1000 - [id number] - [id number] Implanted:Qty: 1 on 03/20/2024 by Daniel Stock Jr., MD at Left: Ankle [employer] [id number] 05/14/2028 86XC-1000 / [id number] / [employer] Graft Bone Augment 3cc Allograft Injectable Kit [id number] - [id number] Implanted:Qty: 1 on 03/20/2024 by Daniel Stock Jr., MD at Left: Ankle [employer] 03/07/2026 [id number] / / [id number] [employer] Ortholoc 90mm 3x1 Hole Compression 3di Technology Left Anterior [id number] - [id number] Implanted:Qty: 1 on 03/20/2024 by Daniel Stock Jr., MD at Left: Ankle [employer] [id number] / / [employer] Salvation Ortholoc 5.5mm 30mm Lock On [place] Polyaxial Self Tap [id number] - [id number] Implanted:Qty: 1 on 03/20/2024 by Daniel Stock Jr., MD at Left: Ankle [employer] [id number] / / [employer] Screw Bone Cortical Full Thread Non Locking Ortholoc 3di 5.5x60mm Ti [id number] - [id number] Implanted:Qty: 1 on 03/20/2024 by Daniel Stock Jr., MD at Left: Ankle [employer] [id number] / / [employer] Ortholoc 5.5mm 32mm 3di Technology Locking Polyaxial Cortical [id number] - [id number] Implanted:Qty: 1 on 03/20/2024 by Daniel Stock Jr., MD at Left: Ankle [employer] [id number] / / [employer] Salvation Ortholoc 5.5mm 36mm Lock On [place] Polyaxial Self Tap [id number] - [id number] Implanted:Qty: 1 on 03/20/2024 by Daniel Stock Jr., MD at Left: Ankle [employer] [id number] / / [employer] Salvation Ortholoc 5.5mm 34mm Lock On [place] Polyaxial Self Tap [id number] - [id number] Implanted:Qty: 1 on 03/20/2024 by Daniel Stock Jr., MD at Left: Ankle [email or web address] [id number] / / Procedures Procedure Name Priority Date/Time Associated Diagnosis Comments XR ANKLE LEFT 3 OR MORE VIEWS Schedule Routine, Read Routine (OP Routine) 06/06/2024 11:35 AM PAPER CONTROL CLERK Arthritis of left ankle XR ANKLE LEFT 3 OR MORE VIEWS Schedule Routine, Read Routine (OP Routine) 05/17/2024 10:41 PM PAPER CONTROL CLERK Arthritis of left ankle Cavus deformity of left foot from Last 3 Months Results * XR Ankle Left 3 or More Views (06/06/2024 11:35 AM PAPER CONTROL CLERK) Anatomical Region Laterality Modality Lower Extremities, Ankle Left Compute d Radiography Narrative 06/06/2024 11:35 AM PAPER CONTROL CLERK Left ankle three views weight-bearing shows the ankle fusion with the bio foam wedge shows to be in good position alignment. ??Do not see him at any loosening of any of the hardware. ??Increased consolidation is noted around the area. ??Actually do not see any fracture or joint lines. us Daniel Stock Jr., MD IMG XR PROCEDURES F inal Result * XR Ankle Left 3 or More Views (05/17/2024 10:41 PM PAPER CONTROL CLERK) Anatomical Region Laterality Modality Lower Extremities, Ankle Left Compute d Radiography Narrative 05/17/2024 10:41 PM PAPER CONTROL CLERK X-rays Left ankle-3 views non-weightbearing demonstrates a [...] 3 Months Insurance CHOICE PLUS CHOICE PLUS CHOICE PLUS Advance Directives For more information, please contact: [phone] * Full Code (Latest Code Status on File) Date Activated Date Inactivated Comments 03/20/2024 11:40 AM 03/21/2024 6:54 PM Care Teams Calculus Professor Relationship Specialty Start Date End Date Robby Doyle MD [address] [place] [address] PCP - General Internal Medicine 02/14/18
== END 2024-07-31 10:39 | disposition home or self-care (01) ==
PROVIDERS: PCP Internal Medicine; Visit Provider Internal Medicine
DX: M19.042 Primary osteoarthritis, left hand (principal); M19.032 Primary osteoarthritis, left wrist
CPT/HCPCS: 73110; 73130

== ENCOUNTER 2024-10-09 11:23 | Outpatient (CLI) | payer OTHER, SELFPAY ==
[2024-10-09 11:52] LABS: Basophils Absolute Auto 0.1 K/mm3 (0.0-0.1); Basophils Percent Auto 1.7 % (0.2-1.2); Eosinophils Absolute Auto 0.6 K/mm3 (0-0.3); Eosinophils Percent Auto 14.3 % (0-4.4); Hemoglobin 12.6 g/dL (12.0-15.0); Immature Granulocyte Absolute 0.01 K/mm3 (0.00-0.031); Immature Granulocyte Percent A 0.2 % (0-0.5); Lymphocytes Absolute Auto 1.01 K/mm3 (0.9-3.2); Lymphocytes Percent Auto 24.5 % (18.3-44.2); Mean Corpuscular HGB Conc 32.3 g/dl (32-36); Mean Corpuscular Hemoglobin 27.5 pg (26-34); Mean Corpuscular Volume 85.2 fl (80-100); Mean Platelet Volume 10.9 fl (7.4-10.4); Monocytes Absolute Auto 0.3 K/mm3 (0.1-0.6); Monocytes Percent Auto 6.8 % (2.6-8.5); Neutrophils Absolute Auto 2.2 K/mm3 (1.3-6.7); Neutrophils Percent Auto 52.5 % (45.5-73.1); Platelet Count Result 220 k/mm3 (150-375); Red Blood Count 4.58 M/mm3 (4.2-5.4); Red Cell Distribution Width 15.2 % (11.5-14.5); White Blood Count 4.1 K/mm3 (4.5-10.0)
[2024-10-09 12:05] LABS: Alanine Aminotransferase 21 U/L (6-35); Albumin Level 3.9 g/dL (3.5-5.1); Alkaline Phosphatase 125 U/L (38-126); Anion Gap 4 mmol/L (4-12); Aspartate Amino Transferase 27 U/L (14-36); Bilirubin,Total 0.7 mg/dL (0.2-1.3); Blood Urea Nitrogen 23 mg/dL (7-17); Calcium 9.8 mg/dL (8.4-10.2); Carbon Dioxide 31 mmol/L (22-30); Chloride 105 mmol/L (98-107); Cholesterol 205 mg/dL (0-200); Estimated Glomerular Filt Rate > 60; Glucose 93 mg/dL (65-110); HDL Direct 91 mg/dL; Hemoglobin A1C 5.6 % (<5.7); Sodium 140 mmol/L (137-145); Triglycerides 85 mg/dL (<150)
[2024-10-09 12:11] LABS: Iron 62 ug/dL (37-170)
[2024-10-09 12:16] LABS: LDL Cholesterol Direct 73 mg/dL
[2024-10-09 12:20] LABS: Percent Iron Saturation 25 % (20-50)
--- OUTSIDE RECORDS SUMMARY | 2024-10-09 12:49 | XMS_ITS | Referral Summary ---
Author Organization [facility] [place] [address] Address [address] [place] [address] Care Team Providers Care Laundry Manager Name Role Phone Robby Doyle MD Primary Care Provider [phone] Encounters Date Type Department Care Team Description 08/08/2024 3:31 PM COMBUSTION ENGINEER - 08/08/2024 11:59 PM COMBUSTION ENGINEER Hospital Encounter [facility] [address] [place] [address] Discharge Disposition: Discharge to home or self care 08/08/2024 3:30 PM COMBUSTION ENGINEER Office Visit [facility] Orthopedics and Sports Medicine at [address] [address] Daniel Stock Jr., MD Arthritis of left ankle (Primary Dx) 07/12/2024 Telephone [facility] Orthopedics and Sports Medicine at [address] [address] Daniel Stock Jr., MD from Last 3 Months Allergies Active Allergy [...] meals Active calcium carb/D3/magnesiu m/zinc (CALCIUM CARB-D3-MAG ORM75-OSUE) [phone] pr-tzyg-ad-mg tablet Take 3 tablets by mouth daily [...] Active Additional Information Patient not taking.Reported on 08/08/2024 traMADoL (ULTRAM) 50 mg tabletIndication s:Arthritis of [...] or minimal response. 1 each 4 Active clindamycin (CLEOCIN) 300 mg capsule TAKE 1 CAPSULE BY MOUTH EVERY 6 HOURS FOR 10 DAYS 5 Active Active Problems Problem Noted Date Diagnosed [...] drink = 0.6 oz pur e alcohol) [facility] Utilities Answer Date Recorded In the past 12 months has th e electric, gas, oil, or water company threatened [...] often do you attend chur ch or bahai services? Never 03/21/2024 Do you belong to any clubs o r organizations such as advent groups, unions, fraternal or athletic groups, or [...] any time in the past 12 m [facility], were you homeless or living in a residential (including now)? No 03/21/2024 Personal Safety Answer Date Recorded Have you ever been in or are you currently in a harmful physical or emotional relationship or is someone making you feel afraid or unsafe? Denies 03/20/2024 Comments Unknown Sex and Gender Information Value Date Recorded Sex Assigned at Not on file Legal Sex Female 3:14 AM COMBUSTION ENGINEER Gender Identity Not on file Sexual Orientation Not on file Last Filed Vital Signs Vital Sign Reading Time Taken Comments Blood Pressure 132/77 03/21/2024 12:11 PM CDT Pulse 93 03/21/2024 12:11 PM CDT Temperature 36.8 C (98.3 F) 03/21/2024 12:11 PM CDT Respiratory Rate 19 03/21/2024 12:11 PM CDT Oxygen Saturation 100% 03/21/2024 12:11 PM CDT Inhaled Oxygen Concentration - - Weight 70.3 kg (155 lb) 08/08/2024 3:18 PM COMBUSTION ENGINEER Height 154.9 cm (5' 0.98 ) 08/08/2024 3:18 PM CS T Body Mass Index 29.3 08/08/2024 3:18 PM COMBUSTION ENGINEER Plan of Treatment Not on file Medical Devices Implanted Type Area Sales Engineer Device Identifier Shelf Expiration Date Model / Serial / Lot Goodie Goodie App Biofoam Remy 22mm Cek12sd 22mm Wedge Augmentation Sterile [id number] - [id number] Implanted:Qty: 1 on 03/20/2024 by Daniel Stock Jr., MD at [facility] Left: Ankle [employer] [id number] 12/16/2027 [id number] / / [id number] [employer] Ortholoc 3di 5.5mm 38mm Nonlocking Cortical Thread Low Profile [id number] - [id number] Implanted:Qty: 1 on 03/20/2024 by WelDaniel monet Jr., MD at [facility] Left: Ankle [employer] [id number] / / [employer] Allomatrix C Allograft Putty Large Graft 10ml Bone Demineralized 86xc-1000 - [id number] - [id number] Implanted:Qty: 1 on 03/20/2024 by Daniel Stock Jr., MD at [facility] Left: Ankle [employer] [id number] 05/14/2028 86XC-1000 / [id number] / [employer] Graft Bone Augment 3cc Allograft Injectable Kit [id number] - [id number] Implanted:Qty: 1 on 03/20/2024 by Daniel Stock Jr., MD at [facility] Left: Ankle [employer] 03/07/2026 [id number] / / [id number] [employer] Ortholoc 90mm 3x1 Hole Compression 3di Technology Left Anterior [id number] - [id number] Implanted:Qty: 1 on 03/20/2024 by Daniel Stock Jr., MD at [facility] Left: Ankle [employer] [id number] / / [employer] Salvation Ortholoc 5.5mm 30mm Lock On [place] Polyaxial Self Tap [id number] - [id number] Implanted:Qty: 1 on 03/20/2024 by Daniel Stock Jr., MD at [facility] Left: Ankle [employer] [id number] / / [employer] Screw Bone Cortical Full Thread Non Locking Ortholoc 3di 5.5x60mm Ti [id number] - [id number] Implanted:Qty: 1 on 03/20/2024 by Daniel Stock Jr., MD at [facility] Left: Ankle [employer] [id number] / / [employer] Ortholoc 5.5mm 32mm 3di Technology Locking Polyaxial Cortical [id number] - [id number] Implanted:Qty: 1 on 03/20/2024 by Daniel Stock Jr., MD at [facility] Left: Ankle [employer] [id number] / / [employer] Salvation Ortholoc 5.5mm 36mm Lock On [place] Polyaxial Self Tap [id number] - [id number] Implanted:Qty: 1 on 03/20/2024 by Daniel Stock Jr., MD at [facility] Left: Ankle [employer] [id number] / / [employer] Salvation Ortholoc 5.5mm 34mm Lock On [place] Polyaxial Self Tap [id number] - [id number] Implanted:Qty: 1 on 03/20/2024 by Daniel Stock Jr., MD at [facility] Left: Ankle [employer] [id number] / / Procedures Procedure Name Priority Date/Time Associated Diagnosis Comments XR ANKLE LEFT 3 OR MORE VIEWS Schedule Routine, Read Routine (OP Routine) 08/08/2024 4:01 PM COMBUSTION ENGINEER Arthritis of left ankle from Last 3 Months Results * XR Ankle Left 3+ Vw (08/08/2024 4:01 PM COMBUSTION ENGINEER) Anatomical Region Laterality Modality Lower Extremities, Ankle Left Compute d Radiography Narrative 08/08/2024 4:01 PM COMBUSTION ENGINEER Right ankle three views weight-bearing show solid arthrodesis of the fusion with good position alignment of the foot. The foot appears to be plantigrade in all planes of motion. The biofoam wedge appears to be solidly incorporated. Foot and ankle appears to be neutral as it was in the foot. Daniel Stock Jr., MD IMG XR PROCEDURES F inal Result from Last 3 Months Insurance [facility] CHOICE PLUS CHOICE PLUS CHOICE PLUS Advance Directives For more information, please contact: [phone] * Full Code (Latest Code Status on File) Date Activated Date Inactivated Comments 03/20/2024 11:40 AM 03/21/2024 6:54 PM Care Teams Laundry Manager Relationship Specialty Start Date End Date Robby Doyle MD [address] [facility] [address] [place], [place] [id number] PCP - General Internal Medicine 02/14/18
--- OUTSIDE RECORDS SUMMARY | 2024-10-09 12:49 | XMS_ITS | Encounter Summary ---
Author Organization [facility] [employer] [facility] Address [address] [place] [address] Care Team Providers Care Interlocker Maintainer Name Role Phone Robby Doyle MD Primary Care Provider + Reason for Visit * Reason Comments Medication Refill Encounter Details Date Type Department Care Team (Late st Contact Info) Description 08/20/2019 Refill [facility] Oncology [facility] Hematology [facility] [address] [place] [address] Ramsey Harrington MD [facility] [employer] [address] [place] [address] Malignant neoplasm of upper-outer quadrant of [...] on file Legal Sex Female 9:46 AM DIRECTOR OF ONLINE EDUCATION Gender Identity Not on file Sexual Orientation Not on file documented as of this encounter Plan of Treatment Upcoming Encounters Date Type Department Care Team (Late st Contact Info) Description 01/29/2025 11:30 AM CDT Office Visit [facility] Oncology and Hematology [address] [place] [address] Ramsey Harrington MD [facility] [employer] [address] [place] [address] documented as of this encounter Visit Diagnoses Diagnosis Malignant neoplasm of upper-outer quadrant of right breast in female, estrogen receptor positive (CMS/HCC) documented in this encounter Care Teams Interlocker Maintainer Relationship Specialty Start Date End Date Robby Doyle MD [address] [place] [phone] PCP - General Internal Medicine 07/20/16 documented as of this encounter
--- OUTSIDE RECORDS SUMMARY | 2024-10-09 12:49 | XMS_ITS | Clinical Summary ---
Author Organization [facility] Address [address] [place] [address] Care Team Providers Care Hospice Care Transitions Coordinator Name Role Phone Robby Doyle MD Primary [...] Take 3 Tablet by mouth daily. Active pseudoephedrin e (SUDAFED) 30 mg tablet Take 60 mg by mouth every 4 hours as needed for Congestion. Active fluticasone (FLONASE) 50 mcg/spray [place], Suspension Administer 2 Sprays in each nostril 1 time daily as needed for Rhinitis. Active cholecalcifero l, vitamin D3, 5,000 unit Take 5,000 Units by mouth daily. Active aspirin (HIRAM) 325 mg tablet Take 325 mg by mouth daily. Active cyclobenzaprin e (FLEXERIL) 10 mg tablet TAKE ONE TABLET TWICE DAILY NEEDED 0 8 Active pantoprazole (PROTONIX) 40 mg Tablet, Delayed Release (E.C.) 8 Active losartan (COZAAR) 25 mg tablet Take 25 mg by mouth. Active acetaminophen- codeine (TYLENOL #3) 300-30 mg tabletIndicati ons:only taking prn for back pain Take 1 [...] Pain, Mild. Active pregabalin (LYRICA) 75 mg CapsuleIndicat ions:Malignant neoplasm of upper-outer quadrant of right breast in female, estrogen receptor positive (CMS/HCC) TAKE 1 CAPSULE 2 TO 3 TIMES DAILY 270 Capsule 5 5 Active pregabalin (LYRICA) 75 mg CapsuleIndicat ions:Malignant neoplasm of upper-outer quadrant of right breast in female, estrogen receptor positive (CMS/HCC) TAKE 1 CAPSULE 2 TO 3 TIMES DAILY 270 Capsule 5 4 09/12/19 25 Discontinu ed(Reorder ) Active Problems Problem Noted Date Diagnosed Date [...] Encounters Date Type Department Care Team Description 09/17/2024 External Device Data STL ABSTRACTION Provider, Abstract 09/11/2024 Refill [facility] Oncology and Hematology [facility] [address] [place] [phone] Ramsey Harrington MD Malignant neoplasm of upper-outer quadrant of right breast in female, estrogen receptor positive (CMS/HCC) 08/29/2024 External Device Data STL ABSTRACTION Provider, Abstract 08/29/2024 External Device Data STL ABSTRACTION Provider, Abstract 08/14/2024 External Device Data STL ABSTRACTION Provider, Abstract 08/08/2024 External Device Data STL ABSTRACTION Provider, Abstract 08/02/2024 External Device Data STL ABSTRACTION Provider, Abstract 07/31/2024 11:45 AM FLOWER CUTTER Office Visit [facility] Oncology and Hematology - [place] [address] [place] [address] Ramsey Harrington MD Malignant neoplasm of upper-outer quadrant of right breast in female, estrogen receptor positive (CMS/HCC) (Primary Dx) 07/31/2024 Orders Only [facility] Oncology and Hematology [facility] [address] [place] [address] Ramsey Harrington MD Abnormal mammogram of left breast (Primary Dx) 07/26/2024 Orders Only [facility] Oncology and Hematology [facility] [address] [place] [address] Ramsey Harrington MD 07/26/2024 Abstract [facility] Oncology and Hematology [facility] [address] [place] [address] Ramsey Harrington MD 07/24/2024 External Device Data STL ABSTRACTION Provider, Abstract 07/24/2024 Orders Only [facility] Oncology and Hematology [facility] [address] [place] [address] Ramsey Harrington MD Malignant neoplasm of upper-outer quadrant of right breast in female, estrogen receptor positive (CMS/HCC) (Primary Dx) from Last 3 Months Family History Medical [...] on file Legal Sex Female 9:46 AM FLOWER CUTTER Gender Identity Not on file Sexual Orientation Not on file Last Filed Vital Signs Vital Sign Reading Time Taken Comments Blood Pressure 142/78 07/31/2024 11:41 AM FLOWER CUTTER Pulse 67 07/31/2024 11:41 AM FLOWER CUTTER Temperature 36 C (96.8 F) 07/31/2024 11:41 AM FLOWER CUTTER Respiratory Rate 14 07/31/2024 11:41 AM FLOWER CUTTER Oxygen Saturation 93% 07/31/2024 11:41 AM FLOWER CUTTER Inhaled Oxygen Concentration - - Weight 69.9 kg (154 lb) 07/31/2024 11:41 AM FLOWER CUTTER Height 154.9 cm (5' 1 ) 12/22/2021 10:26 AM CDT Body Mass Index 29.1 12/22/2021 10:26 AM CDT Plan of Treatment Upcoming Encounters Date Type Department Care Team (Late st Contact Info) Description 01/29/2025 11:30 AM CDT Office Visit [facility] Oncology and Hematology [facility] [address] [facility] [address] [place] [address] Ramesy Harrington MD [address] [facility] [address] [place] [address] Health Maintenance Due Date Last Done Comments Pre-Diabetes and Diabetes Screening 1962 DTAP/TDAP/TD VACCINES (1 - Tdap) 1981 PAP SMEAR 1992 COLORECTAL SCREENING 10/05/2007 Colorectal Cancer Screening [...] COMPREHENSIVE METABOLIC PANEL Routine 07/24/2024 3:45 PM FLOWER CUTTER CANCER ANTIGEN 15-3 Routine 07/24/2024 3 :31 PM FLOWER CUTTER MAMMO DIAGNOSTIC UNI LEFT W OR WO CAD Routine 01/04/2024 11:31 AM CDT from Last 3 Months or Most Recently Relevant to Health Maintenance Results * COMPREHENSIVE METABOLIC PANEL (07/24/2024 3:45 PM FLOWER CUTTER) Blood us Ramsey Harrington MD CHEMISTRY ORDERABLES Final Resu lt * CANCER ANTIGEN 15-3 (07/24/2024 3:31 PM FLOWER CUTTER) Blood us Ramsey Harrington MD CHEMISTRY ORDERABLES Final Resu lt * MAMMO DIAGNOSTIC UNI LEFT W OR WO CAD (01/04/2024 11:31 AM CDT) Anatomical Region Laterality Modality Breast Left Mammography us Ramsey Harrington MD MAMMO ORDERABLES Final Result from Last 3 Months or Most Recently Relevant to Health Maintenance Insurance Advance Directives For more information, please contact: [phone] Documents on File Type Date Recorded Patient Head Men'S Tennis Coach Expl anation Authorization to Represent 06/29/2021 11:19 AM Fax Certificate of medical necessity- breast prosthesis Care Teams Hospice Care Transitions Coordinator Relationship Specialty Start Date End Date Robby Doyle MD [address] [place] [address] PCP - General Internal Medicine 07/20/16
--- OUTSIDE RECORDS SUMMARY | 2024-10-09 12:49 | XMS_ITS | Encounter Summary ---
Author Organization [facility] Address [address] [place] [address] Care Team Providers Care Surveying Crew Stake Runner Name Role Phone Robby Doyle MD Primary Care Provider + Reason for Visit * Reason Comments Medication Refill Encounter Details Date Type Department Care Team (Late st Contact Info) Description 08/21/2019 Refill [facility] Oncology [facility] Hematology [facility] [address] [place] [address] Ramsey Harrington MD [facility] [employer] [address] [place] [address] Malignant neoplasm of upper-outer quadrant of [...] on file Legal Sex Female 9:46 AM BUTT MAKER Gender Identity Not on file Sexual Orientation Not on file documented as of this encounter Plan of Treatment Upcoming Encounters Date Type Department Care Team (Late st Contact Info) Description 01/29/2025 11:30 AM CDT Office Visit [facility] Oncology and Hematology [address] [place] [address] Ramsey Harrington MD [facility] [employer] [address] [place] [phone] documented as of this encounter Visit Diagnoses Diagnosis Malignant neoplasm of upper-outer quadrant of right breast in female, estrogen receptor positive (CMS/HCC) documented in this encounter Care Teams Surveying Crew Stake Runner Relationship Specialty Start Date End Date Robby Doyle MD [address] [place] [address] PCP - General Internal Medicine 07/20/16 documented as of this encounter
--- OUTSIDE RECORDS SUMMARY | 2024-10-09 12:49 | XMS_ITS | Clinical Summary ---
Author Organization [facility] Address [address] [place] [address] Care Team Providers Care Roofer Gypsum Name Role Phone Robby Doyle MD Primary Care Provider [phone] Source Comments [facility],non-owned Affiliates and Associated Physician Practices is amultiple site organization consisting of ambulatory clinics and hospital sitesin [place]. This disclosure is being madepursuant to the Care Everywhere program and may not contain all information available regarding this patient. Last updated 18.[facility] Allergies Active Allergy Reactions Criticality Noted Date [...] 102 04/14/2009 1:21 PM CDT Temperature 36.4 C (97.5 F) 04/14/2009 1:21 PM CDT Respiratory Rate 16 04/14/2009 1:21 PM CDT Oxygen Saturation 94% 04/14/2009 1:21 PM CDT Inhaled Oxygen Concentration - - Weight 90.7 kg (200 lb) 06/11/2009 12:08 PM RECEIVER DISPATCHER Height 161.3 cm (5' 3.5 ) 06/11/2009 12:08 PM CS T Body Mass Index 34.87 06/11/2009 12:08 PM RECEIVER DISPATCHER Plan of Treatment Health Maintenance Due Date [...] to complete this topic MENINGOCOCCAL (Group B) VACC INE SHARED DECISION-MAKING Aged Out No longer eligibl e based on patient's age to complete this topic MENINGOCOCCAL GROUPS A/C/Y/W VACCINE Aged Out No longer eligible b ased on patient's age to complete this topic PNEUMOCOCCAL VACCINE Aged Out No long er eligible based on patient's age to complete this topic Care Teams Roofer Gypsum Relationship Specialty Start Date End Date Robby Doyle MD [address] [place] [address] PCP - General 04/14/09
--- OUTSIDE RECORDS SUMMARY | 2024-10-09 12:49 | XMS_ITS | Encounter Summary ---
Author Organization [facility] Address [address] [place] [address] Care Team Providers Care Level Vial Setter Name Role Phone Robby Doyle MD Primary Care Provider + Encounter Details Date Type Department Care Team (Late Contact Info) Description 01/04/2017 Chart Note [facility] Radiation Therapy [address] [place] [address] [place] [address] [place] [address] Social History Tobacco Use Types Packs/Day Years Used Date Smoking Tobacco: Never Alcohol Use Standard Drinks/Week Comments No 0 (1 standard drink = 0.6 oz pur e alcohol) Comments No Sex and Gender Information Value Date Recorded Sex Assigned at Not on file Legal Sex Female 9:46 AM SCALE AGENT Gender Identity Not on file Sexual Orientation Not on file documented as of this encounter Plan of Treatment Upcoming Encounters Date Type Department Care Team (Late Contact Info) Description 01/29/2025 11:30 AM CDT Office Visit [facility] Oncology and Hematology - [place] [address] [facility] [address] [place] [address] Ramsey Harrington MD [address] [facility] [address] [place] [address] documented as of this encounter Visit Diagnoses Not on filedocumented in this encounter Care Teams Level Vial Setter Relationship Specialty Start Date End Date Robby Doyle MD [address] [place] [address] PCP - General Internal Medicine 07/20/16 documented as of this encounter
--- OUTSIDE RECORDS SUMMARY | 2024-10-09 12:49 | XMS_ITS ---
Author Organization [facility] Address [address] [place] [address] [place] [address] Care Team Providers Care Electronics Technology Instructor Name Role Phone Robby Doyle MD Primary [...]
--- OUTSIDE RECORDS SUMMARY | 2024-10-09 12:49 | XMS_ITS | Clinical Summary ---
Author Organization [facility] [address] Address [address] [place] [address] Care Team Providers Care Restaurant And Bar Manager Name Role Phone Robby Doyle MD Primary Care Provider Allergies Active Allergy Reactions Criticality Noted Date [...] meals Active calcium carb/D3/magnesiu m/zinc (CALCIUM CARB-D3-MAG BZM86-MRNY) [phone] fx-xqsm-zb-mg tablet Take 3 tablets by mouth daily [...] Department Care Team Description 08/08/2024 3:31 PM BURRING MACHINE OPERATOR - 08/08/2024 11:59 PM BURRING MACHINE OPERATOR Hospital Encounter [facility] [address] [place] [address] Discharge Disposition: Discharge to home or self care 08/08/2024 3:30 PM BURRING MACHINE OPERATOR Office Visit [facility] Orthopedics and Sports Medicine at [address] [address] Daniel Stock Jr., MD Arthritis of left ankle (Primary Dx) 07/12/2024 Telephone [facility] Orthopedics and Sports Medicine at [address] [address] Daniel Stock Jr., MD from Last 3 Months Surgical History Surgery [...] drink = 0.6 oz pur e alcohol) [facility] Utilities Answer Date Recorded In the past 12 months has e electric, gas, oil, or water company [...] often do you attend chur ch or mandaen services? Never 03/21/2024 Do you belong to any clubs o r organizations such as yazidism groups, unions, fraternal or athletic groups, or [...] any time in the past 12 m [facility], were you homeless or living in a half-way (including now)? No 03/21/2024 Personal Safety Answer Date Recorded Have you ever been in or are you currently in a harmful physical or emotional relationship or is someone making you feel afraid or unsafe? Denies 03/20/2024 Comments Unknown Sex and Gender Information Value Date Recorded Sex Assigned at Not on file Legal Sex Female 3:14 AM BURRING MACHINE OPERATOR Gender Identity Not on file Sexual Orientation [...] 70.3 kg (155 lb) 08/08/2024 3:18 PM BURRING MACHINE OPERATOR Height 154.9 cm (5' 0.98 ) 08/08/2024 3:18 PM CS T Body Mass Index 29.3 08/08/2024 3:18 PM BURRING MACHINE OPERATOR Plan of Treatment Health Maintenance Due Date [...] this topic Medical Devices Implanted Type Area Squilgeer Device Identifier Shelf Expiration Date Model / Serial / Lot AwesomeHighlighter Biofoam Remy 22mm [id number] 22mm Wedge Augmentation Sterile [id number] - [id number] Implanted:Qty: 1 on 03/20/2024 by Daniel Stock Jr., MD at [facility] Left: Ankle [employer] Inc [id number] 12/16/2027 [id number] / / [id number] AwesomeHighlighter Ortholoc 3di 5.5mm 38mm Nonlocking Cortical Thread Low Profile [id number] - [id number] Implanted:Qty: 1 on 03/20/2024 by Daniel Stock Jr., MD at [facility] Left: Ankle AwesomeHighlighter [id number] / / Twelvefold Inc Allomatrix C Allograft Putty Large Graft 10ml Bone Demineralized 86xc-1000 - [id number] - [id number] Implanted:Qty: 1 on 03/20/2024 by Daniel Stock Jr., MD at [facility] Left: Ankle [employer] Inc [id number] 05/14/2028 86XC-1000 / [id number] / Twelvefold Inc Graft Bone Augment 3cc Allograft Injectable Kit [id number] - [id number] Implanted:Qty: 1 on 03/20/2024 by Daniel Stock Jr., MD at [facility] Left: Ankle Rai Medical Technology Inc 03/07/2026 [id number] / / [id number] Rai Medical Technology Inc Ortholoc 90mm 3x1 Hole Compression 3di Technology Left Anterior [id number] - [id number] Implanted:Qty: 1 on 03/20/2024 by Daniel Stock Jr., MD at [facility] Left: Ankle Rai [employer] Inc [id number] / / Rai Medical Technology Inc Salvation Ortholoc 5.5mm 30mm Lock On [place] Polyaxial Self Tap [id number] - [id number] Implanted:Qty: 1 on 03/20/2024 by Daniel Stock Jr., MD at [facility] Left: Ankle Rai Medical Technology Inc [id number] / / Valchemy Medical Technology Inc Screw Bone Cortical Full Thread Non Locking Ortholoc 3di 5.5x60mm Ti [id number] - [id number] Implanted:Qty: 1 on 03/20/2024 by Daniel Stock Jr., MD at [facility] Left: Ankle R[employer] Inc [id number] / / Valchemy Medical Technology Inc Ortholoc 5.5mm 32mm 3di Technology Locking Polyaxial Cortical [id number] - [id number] Implanted:Qty: 1 on 03/20/2024 by Daniel Stock Jr., MD at [facility] Left: Ankle Rai [employer] Inc [id number] / / Val[employer] Technology Inc Salvation Ortholoc 5.5mm 36mm Lock On [place] Polyaxial Self Tap [id number] - [id number] Implanted:Qty: 1 on 03/20/2024 by Daniel Stock Jr., MD at [facility] Left: Ankle Rai Medical [employer] Inc [id number] / / [employer] Inc Salvation Ortholoc 5.5mm 34mm Lock On [place] Polyaxial Self Tap [id number] - [id number] Implanted:Qty: 1 on 03/20/2024 by Daniel Stock Jr., MD at [facility] Left: Ankle Rai Medical [employer] Inc [id number] / / Procedures Procedure Name Priority Date/Time Associated Diagnosis Comments XR ANKLE LEFT 3 OR MORE VIEWS Schedule Routine, Read Routine (OP Routine) 08/08/2024 4:01 PM BURRING MACHINE OPERATOR Arthritis of left ankle from Last 3 Months Results * XR Ankle Left 3+ Vw (08/08/2024 4:01 PM BURRING MACHINE OPERATOR) Anatomical Region Laterality Modality Lower Extremities, Ankle Left Compute d Radiography Narrative 08/08/2024 4:01 PM BURRING MACHINE OPERATOR Right ankle three views weight-bearing show solid [...] inal Result from Last 3 Months Insurance CHOICE PLUS CHOICE PLUS [address] CHOICE PLUS Advance Directives For more information, please contact: [phone] * Full Code (Latest Code Status on File) Date Activated Date Inactivated Comments 03/20/2024 11:40 AM 03/21/2024 6:54 PM Care Teams Restaurant And Bar Manager Relationship Specialty Start Date End Date Robby Doyle MD [address] [place] [address] PCP - General Internal Medicine 02/14/18
== END 2024-10-09 11:24 | disposition home or self-care (01) ==
LOC: ANHLAB 11:23
PROVIDERS: PCP Internal Medicine; Visit Provider Internal Medicine
DX: R73.03 Prediabetes (principal); Z79.899 Other long term (current) drug therapy; D50.9 Iron deficiency anemia, unspecified; E78.5 Hyperlipidemia, unspecified; I10 Essential (primary) hypertension
CPT/HCPCS: 36415; 80053; 80061; 82728; 83036; 83540; 83550; 85025; 99212; G0463

== ENCOUNTER 2024-12-17 10:54 | Outpatient (CLI) | payer OTHER, SELFPAY ==
--- NOTE | ~2024-12-17 | MM_ITS ---
EXAMINATION: MM diagnostic bandar LT w karon HISTORY: History of right breast cancer with mastectomy. TECHNIQUE: Additional 3-D tomosynthesis images of left were performed and synthetic 2-D images were g enerated. CAD analysis was submitted and interpreted. COMPARISON: Comparison to multiple prior studies sequentially, with oldest reviewed study dated 12/02. BREAST PARENCHYMAL COMPOSITION: Not dense: There are scattered areas of fibroglandular density. FINDINGS: The left breast is stable. No new masses, calcifications or architectural distortion to sug gest malignancy. IMPRESSION: 1. No evidence for malignancy in the left breast. 2. Routine yearly screening mammogram and regular clinical breast examination are recommended. BI-RADS Category 1: Negative Reviewed, dictated and finalized at location B. IMPRESSION: 1. No evidence for malignancy in the left breast. 2. Routine yearly screening mammogram and regular clinical breast examination a re recommended. BI-RADS Category 1: Negative
--- OUTSIDE RECORDS SUMMARY | 2024-12-17 12:16 | XMS_ITS | Encounter Summary ---
Author Organization [facility] Address [address] [place] [address] Care Team Providers Care Plant Buyer Name Role Phone Robby Doyle MD Primary Care Provider + Encounter Details Date Type Department Care Team (Late Contact Info) Description 01/04/2017 Chart Note [facility] Radiation Therapy [address] [place] [address] [place] [address] [place] [address] Social History Tobacco Use Types Packs/Day Years Used Date Smoking Tobacco: Never Alcohol Use Standard Drinks/Week Comments No 0 (1 standard drink = 0.6 oz pur e alcohol) Comments No Sex and Gender Information Value Date Recorded Sex Assigned at Not on file Legal Sex Female 9:46 AM STATEMENT DISTRIBUTION CLERK Gender Identity Not on file Sexual Orientation Not on file documented as of this encounter Plan of Treatment Upcoming Encounters Date Type Department Care Team (Late Contact Info) Description 01/29/2025 11:30 AM CDT Office Visit [facility] Oncology and Hematology - [place] [address] [facility] [address] [place] [address] Ramsey Harrington MD [address] [facility] [address] [place] [address] documented as of this encounter Visit Diagnoses Not on filedocumented in this encounter Care Teams Plant Buyer Relationship Specialty Start Date End Date Robby Doyle MD [address] [place] [address] PCP - General Internal Medicine 07/20/16 documented as of this encounter
--- OUTSIDE RECORDS SUMMARY | 2024-12-17 12:16 | XMS_ITS | Referral Summary ---
Author Organization [facility] [address] Address [address] [place] [address] Care Team Providers Care Manager Study Name Role Phone Robby Doyle MD Primary Care Provider [phone] Allergies Active Allergy Reactions Criticality Noted Date [...] meals Active calcium carb/D3/magnesiu m/zinc (CALCIUM CARB-D3-MAG PAB83-VACH) [phone] tv-xagk-rf-mg tablet Take 3 tablets by mouth daily [...] drink = 0.6 oz pur e alcohol) [facility] Utilities Answer Date Recorded In the past 12 months has [employer] electric, gas, oil, or water [employer] threatened to shut off services in your [...] often do you attend chur ch or protestant services? Never 03/21/2024 Do you belong to any clubs o r organizations such as anglican groups, unions, fraternal or athletic groups, or [...] any time in the past 12 m [facility], were you homeless or living in a retirement (including now)? No 03/21/2024 Personal Safety Answer Date Recorded Have you ever been in or are you currently in a harmful physical or emotional relationship or is someone making you feel afraid or unsafe? Denies 03/20/2024 Comments Unknown Sex and Gender Information Value Date Recorded Sex Assigned at Not on file Legal Sex Female 3:14 AM CHIEF ENGINEER Gender Identity Not on file Sexual [...] 70.3 kg (155 lb) 08/08/2024 3:18 PM CHIEF ENGINEER Height 154.9 cm (5' 0.98) 08/08/2024 3:18 PM CS T Body Mass Index 29.3 08/08/2024 3:18 PM CHIEF ENGINEER Plan of Treatment Not on file Medical Devices Implanted Type Area Corn Grower Device Identifier Shelf Expiration Date Model / Serial / Lot Parcus Medical Biofoam Remy 22mm [id number] 22mm Wedge Augmentation Sterile [id number] - [id number] Implanted:Qty: 1 on 03/20/2024 by Daniel Stock Jr., MD at [facility] Left: Ankle [employer] [id number] 12/16/2027 [id number] / / [id number] [employer] Ortholoc 3di 5.5mm 38mm Nonlocking Cortical Thread Low Profile [id number] - [id number] Implanted:Qty: 1 on 03/20/2024 by Daniel Stock Jr., MD at [facility] Left: Ankle [employer] [id number] / / XOG Inc Allomatrix C Allograft Putty Large Graft 10ml Bone Demineralized 86xc-1000 - [id number] - [id number] Implanted:Qty: 1 on 03/20/2024 by Daniel Stock Jr., MD at [facility] Left: Ankle [employer] [id number] 05/14/2028 86XC-1000 / [id number] / Par[employer] Medical Graft Bone Augment 3cc Allograft Injectable Kit [id number] - [id number] Implanted:Qty: 1 on 03/20/2024 by Daniel Stock Jr., MD at [facility] Left: Ankle [employer]OG Inc 03/07/2026 [id number] / / [id number] Rai Medical Technology Inc Ortholoc 90mm 3x1 Hole Compression 3di Technology Left Anterior [id number] - [id number] Implanted:Qty: 1 on 03/20/2024 by Daniel Stock Jr., MD at [facility] Left: Ankle [employer]ai [employer] Inc [id number] / / Rai Medical Technology Inc Salvation Ortholoc 5.5mm 30mm Lock On [place] Polyaxial Self Tap [id number] - [id number] Implanted:Qty: 1 on 03/20/2024 by Daniel Stock Jr., MD at [facility] Left: Ankle Rai Medical Technology Inc [id number] / / Keisense Medical Technology Inc Screw Bone Cortical Full Thread Non Locking Ortholoc 3di 5.5x60mm Ti [id number] - [id number] Implanted:Qty: 1 on 03/20/2024 by Daniel Stock Jr., MD at [facility] Left: Ankle Keisense Medical Technology Inc [id number] / / Keisense Medical Technology Inc Ortholoc 5.5mm 32mm 3di Technology Locking Polyaxial Cortical [id number] - [id number] Implanted:Qty: 1 on 03/20/2024 by Daniel Stock Jr., MD at [facility] Left: Ankle Rai [employer] Inc [id number] / / Keisense Medical Technology Inc Salvation Ortholoc 5.5mm 36mm Lock On [place] Polyaxial Self Tap [id number] - [id number] Implanted:Qty: 1 on 03/20/2024 by Daniel Stock Jr., MD at [facility] Left: Ankle Rai Medical Technology Inc [id number] / / Keisense Medical [employer] Inc Salvation Ortholoc 5.5mm 34mm Lock On [place] Polyaxial Self Tap [id number] - [id number] Implanted:Qty: 1 on 03/20/2024 by Daniel Stock Jr., MD at [facility] Left: Ankle Rai Medical Technology Inc [id number] / / Insurance [facility] CHOICE PLUS [facility] HMO/PPO Address: [address] [place] [address] CHOICE PLUS [facility] HMO/PPO Address: [place] [address] CHOICE PLUS [facility] HMO/PPO Address: [facility] [address] [place] [address] Advance Directives For more information, please contact: [phone] * Full Code (Latest Code Status on File) Date Activated Date Inactivated Comments 03/20/2024 11:40 AM 03/21/2024 6:54 PM Care Teams Manager Study Relationship Specialty Start Date End Date Robby Doyle MD [address] [place] [address] PCP - General Internal Medicine 02/14/18
--- OUTSIDE RECORDS SUMMARY | 2024-12-17 12:16 | XMS_ITS ---
Author Organization [facility] Address [address] [place] [address] [place] [address] Care Team Providers Care Chemistry Account Manager Name Role Phone Robby Doyle MD [...]
--- OUTSIDE RECORDS SUMMARY | 2024-12-17 12:16 | XMS_ITS | Encounter Summary ---
Author Organization [facility] Address [address] [place] [address] Care Team Providers Care Senior Copywriter Name Role Phone Robby Doyle MD Primary Care Provider + Reason for Visit * Reason Comments Medication Refill Encounter Details Date Type Department Care Team (Late st Contact Info) Description 08/21/2019 Refill [facility] Oncology [facility] Hematology [facility] [address] [place] [address] Rasmey Harrington MD [facility] [address] [place] [address] Malignant neoplasm of upper-outer quadrant of [...] on file Legal Sex Female 9: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 CLERICAL Gender Identity Not on file Sexual Orientation Not on file documented as of this encounter Plan of Treatment Upcoming Encounters Date Type Department Care Team (Late st Contact Info) Description 01/29/2025 11:30 AM CDT Office Visit [facility] Oncology and Hematology [address] [place] [address] Ramsey Harrington MD [facility] [address] [place] [address] documented as of this encounter Visit Diagnoses Diagnosis Malignant neoplasm of upper-outer quadrant of right breast in female, estrogen receptor positive (CMS/HCC) documented in this encounter Care Teams Senior Copywriter Relationship Specialty Start Date End Date Robby Doyle MD [address] [place] [address] PCP - General Internal Medicine 07/20/16 documented as of this encounter
--- OUTSIDE RECORDS SUMMARY | 2024-12-17 12:16 | XMS_ITS | Clinical Summary ---
Author Organization [facility] [address] Address [address] [place] [address] Care Team Providers Care Karate Black Belt Name Role Phone Robby Doyle MD Primary Care Provider [phone] Allergies Active Allergy Reactions Criticality Noted Date [...] meals Active calcium carb/D3/magnesiu m/zinc (CALCIUM CARB-D3-MAG ERN31-IVFY) [phone] un-yctp-wn-mg tablet Take 3 tablets by mouth daily [...] to right lower extremity 06/04/2009 Overview (02/08/2024): Surgical History Surgery Date Site/Laterality Comments HYSTERECTOMY [...] drink = 0.6 oz pur e alcohol) [facility] Utilities Answer Date Recorded In the past [...] often do you attend chur ch or tenriism services? Never 03/21/2024 Do you belong to any clubs o r organizations such as scientologist groups, unions, fraternal or athletic groups, or [...] any time in the past 12 m [facility], were you homeless or living in a care home (including now)? No 03/21/2024 Personal Safety Answer Date Recorded Have you ever been in or are you currently in a harmful physical or emotional relationship or is someone making you feel afraid or unsafe? Denies 03/20/2024 Comments Unknown Sex and Gender Information Value Date Recorded Sex Assigned at Not on file Legal Sex Female 3:14 AM FOOD AND BEVERAGE SERVER Gender Identity Not on file Sexual Orientation [...] 70.3 kg (155 lb) 08/08/2024 3:18 PM FOOD AND BEVERAGE SERVER Height 154.9 cm (5' 0.98) 08/08/2024 3:18 PM CS T Body Mass Index 29.3 08/08/2024 3:18 PM FOOD AND BEVERAGE SERVER Plan of Treatment Health Maintenance Due Date Last Done Comments Colon Cancer Screening-Colonoscopy 1962 Depression Screening 1962 Hepatitis C Screening 1962 Hepatitis B Screening 1980 Regular Well Visit/Exam 18-64 1980 Zoster Vaccine (1 of 2) 2012 Breast Cancer Screening-Mammogram 11/15/2019 11/14/2018 Covid-19 Vaccine (2023-2 5 season) 2024 05/21/2021, 08/29/2020, 07/31/2020 Influenza Vaccine (Season Ended) 2025 04/24/2014, 05/11/2013 DTaP/Tdap/Td Vaccine (2 - Td or Tdap) 12/06/2033 12/07/2023 Pneumococcal vaccine <65 Aged Out No longer eligible based on patient's age to complete this topic Medical Devices Implanted Type Area Chemical Reclamation Equipment Operator Device Identifier Shelf Expiration Date Model / Serial / Lot Rai Medical Technology Inc Biofoam Remy 22mm [id number] 22mm Wedge Augmentation Sterile [id number] - [id number] Implanted:Qty: 1 on 03/20/2024 by Daniel Stock Jr., MD at [facility] Left: Ankle [employer]um [employer] Medical Technology Inc [id number] 12/16/2027 [id number] / / [id number] Rai Medical Technology Inc Ortholoc 3di 5.5mm 38mm Nonlocking Cortical Thread Low Profile [id number] - [id number] Implanted:Qty: 1 on 03/20/2024 by Daniel Stock Jr., MD at [facility] Left: Ankle Hipcricket Technology Inc [id number] / / X1 Technologies Inc Allomatrix C Allograft Putty Large Graft 10ml Bone Demineralized 86xc-1000 - [id number] - [id number] Implanted:Qty: 1 on 03/20/2024 by Daniel Stock Jr., MD at [facility] Left: Ankle [employer]1 Technologies Inc [id number] 05/14/2028 86XC-1000 / [id number] / X1 Technologies Inc Graft Bone Augment 3cc Allograft Injectable Kit [id number] - [id number] Implanted:Qty: 1 on 03/20/2024 by Daniel Stock Jr., MD at [facility] Left: Ankle Hipcricket Technology Inc 03/07/2026 [id number] / / [id number] Hipcricket Technology Inc Ortholoc 90mm 3x1 Hole Compression 3di Technology Left Anterior [id number] - [id number] Implanted:Qty: 1 on 03/20/2024 by Daniel Stock Jr., MD at [facility] Left: Ankle Magnum Semicon[employer] Medical Technology Inc [id number] / / Magnum Semicon[employer] Medical Technology Inc Salvation Ortholoc 5.5mm 30mm Lock On [place] Polyaxial Self Tap [id number] - [id number] Implanted:Qty: 1 on 03/20/2024 by Daniel Stock Jr., MD at [facility] Left: Ankle [employer]um [employer] Medical Technology Inc [id number] / / Hipcricket Technology Inc Screw Bone Cortical Full Thread Non Locking Ortholoc 3di 5.5x60mm Ti [id number] - [id number] Implanted:Qty: 1 on 03/20/2024 by Daniel Stock Jr., MD at [facility] Left: Ankle Rai Medical Technology Inc [id number] / / Rai Medical Technology Inc Ortholoc 5.5mm 32mm 3di Technology Locking Polyaxial Cortical [id number] - [id number] Implanted:Qty: 1 on 03/20/2024 by Daniel Stock Jr., MD at [facility] Left: Ankle Rai Medical Technology Inc [id number] / / Rai Medical Technology Inc Salvation Ortholoc 5.5mm 36mm Lock On [place] Polyaxial Self Tap [id number] - [id number] Implanted:Qty: 1 on 03/20/2024 by Daniel Stock Jr., MD at [facility] Left: Ankle Rai Medical Technology Inc [id number] / / Rai Medical Technology Inc Salvation Ortholoc 5.5mm 34mm Lock On [place] Polyaxial Self Tap [id number] - [id number] Implanted:Qty: 1 on 03/20/2024 by Daniel Stock Jr., MD at [facility] Left: Ankle Rai Medical Technology Inc [id number] / / Insurance CHOICE PLUS [address] CHOICE PLUS Advance Directives For more information, please contact: [phone] * Full Code (Latest Code Status on File) Date Activated Date Inactivated Comments 03/20/2024 11:40 AM 03/21/2024 6:54 PM Care Teams Karate Black Belt Relationship Specialty Start Date End Date Robby Doyle MD [address] [place] [address] PCP - General Internal Medicine 02/14/18
--- OUTSIDE RECORDS SUMMARY | 2024-12-17 12:16 | XMS_ITS | Clinical Summary ---
Author Organization [facility] Address [address] [place] [address] Care Team Providers Care Check Scaler Name Role Phone Robby Doyle MD Primary [...] for Congestion. Active fluticasone (FLONASE) 50 mcg/spray [place], Suspension Administer 2 Sprays in each nostril [...] TIMES DAILY 270 Capsule 5 5 Active Active Problems Problem Noted Date [...] Encounters Date Type Department Care Team Description 11/29/2024 External Device Data [facility] ABSTRACTION Provider, Abstract 11/28/2024 External Device Data [facility] ABSTRACTION Provider, Abstract 09/17/2024 External Device Data [facility] ABSTRACTION Provider, Abstract from Last 3 Months Family History Medical [...] on file Legal Sex Female 9:46 AM MANUFACTURING EXECUTIVE Gender Identity Not on file Sexual Orientation Not on file Last Filed Vital Signs Vital Sign Reading Time Taken Comments Blood Pressure 142/78 07/31/2024 11:41 AM MANUFACTURING EXECUTIVE Pulse 67 07/31/2024 11:41 AM MANUFACTURING EXECUTIVE Temperature 36 C (96.8 F) 07/31/2024 11:41 AM MANUFACTURING EXECUTIVE Respiratory Rate 14 07/31/2024 11:41 AM MANUFACTURING EXECUTIVE Oxygen Saturation 93% 07/31/2024 11:41 AM MANUFACTURING EXECUTIVE Inhaled Oxygen Concentration - - Weight 69.9 kg (154 lb) 07/31/2024 11:41 AM MANUFACTURING EXECUTIVE Height 154.9 cm (5' 1) 12/22/2021 10:26 AM CDT Body Mass Index 29.1 12/22/2021 10:26 AM CDT Plan of Treatment Upcoming Encounters Date Type Department Care Team (Late st Contact Info) Description 01/29/2025 11:30 AM CDT Office Visit [facility] Oncology and Hematology [facility] [address] [place] [address] [facility] [address] [place] [address] Ramsey Harrington MD [address] [facility] [address] [place] [address] Health Maintenance Due Date Last Done Comments Pre-Diabetes and Diabetes Screening 1962 DTAP/TDAP/TD VACCINES (1 - Tdap) 1981 COLORECTAL SCREENING 10/05/2007 Colorectal Cancer Screening 10/05/2007 FIT-DNA Q 3 years 10/05/2007 FIT/FOBT Q 1 year 10/05/2007 Flex Sig/CT Colonography Q 5 years 10/05/2007 ZOSTER VACCINE (1 of 2) 2012 INFLUENZA VACCINE (#1) 2024 BREAST CANCER SCREENING 01/03/2025 01/04/20 24, 12/20/2023, 12/14/2022, Additional history exists RSV VACCINE (60+ or ) (1 - 1-dose 75+ series) 2037 Procedures Procedure Name Priority Date/Time Associated Diagnosis Comments MAMMO DIAGNOSTIC UNI LEFT W OR WO CAD Routine 01/04/2024 11:31 AM CDT from Last 3 Months or Most Recently Relevant to Health Maintenance Results * MAMMO DIAGNOSTIC UNI LEFT W OR WO CAD (01/04/2024 11:31 AM CDT) Anatomical Region Laterality Modality Breast Left Mammography Ramsey Harrington MD MAMMO ORDERABLES Final Result from Last 3 Months or Most Recently Relevant to Health Maintenance Insurance Advance Directives For more information, please contact: [phone] Documents on File Type Date Recorded Patient Telephone Collector Expl anation Authorization to Represent 06/29/2021 11:19 AM Fax Certificate of medical necessity- breast prosthesis Care Teams Check Scaler Relationship Specialty Start Date End Date Robby Doyle MD [address] [place] [address] PCP - General Internal Medicine 07/20/16
--- OUTSIDE RECORDS SUMMARY | 2024-12-17 12:16 | XMS_ITS | Clinical Summary ---
Author Organization [facility] Address [address] [address] Care Team Providers Care Managed Care Liaison Name Role Phone Robby Doyle MD Primary Care Provider [phone] Source Comments [facility],non-owned Affiliates and Associated Physician Practices is amultiple site organization consisting of ambulatory clinics and hospital sitesin [place], [place], [place] and [place]. This disclosure is being madepursuant to the Care Everywhere program and may not contain all information available regarding this patient. Last updated 18.[facility] Allergies Active Allergy Reactions Criticality Noted Date Comments Morphine Itching 04/08/2009 Sulfa Drugs 04/08/2009 Mouth sores Medications * Be aware that medications may not be up to date on this document. Alwaysverify current medications with the patient. lisinopril-hydr ochlorothiazide (PRINIZIDE; ZESTORETIC) 10-12.5 MG tablet Take 1 [...] at Not on file Legal Sex Female 7:54 AM ENROBING MACHINE CORDER Gender Identity Not on file Sexual Orientation [...] 90.7 kg (200 lb) 06/11/2009 12:08 PM ENROBING MACHINE CORDER Height 161.3 cm (5' 3.5) 06/11/2009 12:08 PM CS T Body Mass Index 34.87 06/11/2009 12:08 PM ENROBING MACHINE CORDER Plan of Treatment Health Maintenance Due Date Last Done Comments COLOGUARD (AGES 45-75) - COL ON CA SCREENING 1962 COLON MONITORING 1962 COLONOSCOPY - COLON CA SCREENING 1962 CT COLONOGRAPHY - COLON CA SCREENING 1962 Colorectal Cancer Screening 1962 FIT - COLON CA SCREENING 1962 FLEX SIG - COLON CA SCREENING 1962 LIPID TESTING 1962 MAMMOGRAM 1962 HIV SCREENING 1977 HEPATITIS C SCREENING 09/29/1980 DTAP/TDAP/TD VACCINES (1 - Tdap) 1981 PNEUMOCOCCAL VACCINE 50+ (1 of 1 - PCV) 2012 ZOSTER VACCINE (1 of 2) 2012 COVID-19 VACCINE ( - 2023-2 5 season) 2024 DEPRESSION SCREENING 07/11/2024 INFLUENZA VACCINE (Season Ended) 2025 Respiratory Syncytial Virus (RSV) Vaccine Pt: or [...] age to complete this topic Care Teams Managed Care Liaison Relationship Specialty Start Date End Date Robby Doyle MD [address] [place] [address] PCP - General 04/14/09
--- OUTSIDE RECORDS SUMMARY | 2024-12-17 12:16 | XMS_ITS | Encounter Summary ---
Author Organization [facility] [employer] [facility] Address [address] [place] [address] Care Team Providers Care Bull Driver Name Role Phone Robby Doyle MD Primary Care Provider + Reason for Visit * Reason Comments Medication Refill Encounter Details Date Type Department Care Team (Late st Contact Info) Description 08/20/2019 Refill [facility] Oncology [facility] Hematology [facility] [address] [place] [address] Ramsey Harrington MD [facility] [employer] [address] [place] [address] Malignant neoplasm of upper-outer quadrant of [...] on file Legal Sex Female 9:46 AM PUGGER HELPER Gender Identity Not on file Sexual Orientation Not on file documented as of this encounter Plan of Treatment Upcoming Encounters Date Type Department Care Team (Late st Contact Info) Description 01/29/2025 11:30 AM CDT Office Visit [facility] Oncology and Hematology [address] [place] [address] Ramsey Harrington MD [facility] [employer] [address] [place] [address] documented as of this encounter Visit Diagnoses Diagnosis Malignant neoplasm of upper-outer quadrant of right breast in female, estrogen receptor positive (CMS/HCC) documented in this encounter Care Teams Bull Driver Relationship Specialty Start Date End Date Robby Doyle MD [address] [place] [address] PCP - General Internal Medicine 07/20/16 documented as of this encounter
== END 2024-12-17 10:55 | disposition home or self-care (01) ==
PROVIDERS: PCP Internal Medicine; Visit Provider Internal Medicine Hematology & Oncology
DX: C50.411 Malignant neoplasm of upper-outer quadrant of right female breast (principal); Z17.0 Estrogen receptor positive status [ER+]; R92.8 Other abnormal and inconclusive findings on diagnostic imaging of breast
CPT/HCPCS: 77061; 77065; G0279

== ENCOUNTER 2025-01-15 14:10 | Outpatient (CLI) | payer OTHER, SELFPAY ==
--- OUTSIDE RECORDS SUMMARY | 2025-01-15 14:15 | XMS_ITS ---
Author Organization [facility] Address [address] [place] [address] [place] [address] Care Team Providers Care Flight Dynamicist Name Role Phone Robby Doyle MD Primary [...]
--- OUTSIDE RECORDS SUMMARY | 2025-01-15 14:15 | XMS_ITS | Clinical Summary ---
Author Organization [facility] [employer] Address [address] [place] [address] Care Team Providers Care Production Team Leader Name Role Phone Robby Doyle MD Primary Care Provider [phone] [facility] [employer],non-owned Affiliates and Associated Physician Practices is amultiple site organization consisting of ambulatory clinics and hospital sitesin [place], [place], [place] and [place]. This disclosure is being madepursuant to the Care Everywhere program and may not contain all information available regarding this patient. Last updated 18.[facility] [employer] Allergies Active Allergy Reactions Criticality Noted Date [...] on file Legal Sex Female 7:54 AM MUSEUM LIBRARIAN Gender Identity Not on file Sexual Orientation [...] 90.7 kg (200 lb) 06/11/2009 12:08 PM MUSEUM LIBRARIAN Height 161.3 cm (5' 3.5) 06/11/2009 12:08 PM CS T Body Mass Index 34.87 06/11/2009 12:08 PM MUSEUM LIBRARIAN Plan of Treatment Health Maintenance Due Date [...] age to complete this topic Care Teams Production Team Leader Relationship Specialty Start Date End Date Robby Doyle MD [address] [place] [address] PCP - General 04/14/09
--- OUTSIDE RECORDS SUMMARY | 2025-01-15 14:15 | XMS_ITS | Clinical Summary ---
Author Organization [facility] Address [address] [place] [address] Care Team Providers Care Hair Cutter Name Role Phone Robby Doyle MD Primary [...] for Congestion. Active fluticasone (FLONASE) 50 mcg/spray Lawn, Suspension Administer 2 Sprays in each nostril [...] Encounters Date Type Department Care Team Description 12/26/2024 External Device Data STL ABSTRACTION Provider, Abstract 12/17/2024 Orders Only [facility] Oncology and Hematology - [place] [address] [place] [phone] Ramsey Harrington MD 11/29/2024 External Device Data STL ABSTRACTION Provider, [...] on file Legal Sex Female 9:46 AM DISTRIBUTION SYSTEM OPERATOR Gender Identity Not on file Sexual Orientation Not on file Last Filed Vital Signs Vital Sign Reading Time Taken Comments Blood Pressure 142/78 07/31/2024 11:41 AM DISTRIBUTION SYSTEM OPERATOR Pulse 67 07/31/2024 11:41 AM DISTRIBUTION SYSTEM OPERATOR Temperature 36 C (96.8 F) 07/31/2024 11:41 AM DISTRIBUTION SYSTEM OPERATOR Respiratory Rate 14 07/31/2024 11:41 AM DISTRIBUTION SYSTEM OPERATOR Oxygen Saturation 93% 07/31/2024 11:41 AM DISTRIBUTION SYSTEM OPERATOR Inhaled Oxygen Concentration - - Weight 69.9 kg (154 lb) 07/31/2024 11:41 AM DISTRIBUTION SYSTEM OPERATOR Height 154.9 cm (5' 1) 12/22/2021 10:26 AM CDT Body Mass Index 29.1 12/22/2021 10:26 AM CDT Plan of Treatment Upcoming Encounters Date Type Department Care Team (Late st Contact Info) Description 01/29/2025 11:30 AM CDT Office Visit [facility] Oncology and Hematology - [place] [address] [facility] [address] [place] [address] Ramsey Harrington MD [address] [place] [address] Health Maintenance Due Date Last Done Comments Pre-Diabetes and Diabetes Screening 1962 DTAP/TDAP/TD VACCINES (1 - Tdap) 1981 COLORECTAL SCREENING 10/05/2007 Colorectal Cancer Screening 10/05/2007 FIT-DNA Q 3 years 10/05/2007 FIT/FOBT Q 1 year 10/05/2007 Flex Sig/CT Colonography Q 5 years 10/05/2007 ZOSTER VACCINE (1 of 2) 2012 INFLUENZA VACCINE (#1) 2025 BREAST CANCER SCREENING 12/17/2025 12/18/19 25, 01/04/2024, 12/20/2023, Additional history exists RSV VACCINE (60+ or ) (1 - 1-dose 75+ series) 2037 Procedures Procedure Name Priority Date/Time Associated Diagnosis Comments MAMMO DIAGNOSTIC UNI LEFT W OR WO CAD Routine 12/17/2024 2:17 PM CDT from Last 3 Months Results * MAMMO DIAGNOSTIC UNI LEFT W OR WO CAD (12/17/2024 2:17 PM CDT) Anatomical Region Laterality Modality Breast Left Mammography Ramsey Harrington MD MAMMO ORDERABLES Final Result from Last 3 Months Insurance Advance Directives For more information, please contact: [phone] Documents on File Type Date Recorded Patient Pest Control Service Sales Agent Expl anation Authorization to Represent 06/29/2021 11:19 AM Fax Certificate of medical necessity- breast prosthesis Care Teams Hair Cutter Relationship Specialty Start Date End Date Robby Doyle MD [address] [place] [address] PCP - General Internal Medicine 07/20/16
--- OUTSIDE RECORDS SUMMARY | 2025-01-15 14:16 | XMS_ITS | Clinical Summary ---
Author Organization [facility] [address] Address [address] [place] [address] Care Team Providers Care Suction Operator Name Role Phone Robby Doyle MD Primary Care Provider [phone] Allergies Active Allergy Reactions Criticality Noted Date [...] meals Active calcium carb/D3/magnesiu m/zinc (CALCIUM CARB-D3-MAG VFV27-HYWZ) 911-165-568-5 ar-voxv-pp-mg tablet Take 3 tablets by mouth daily [...] drink = 0.6 oz pur e alcohol) [facility] Utilities Answer Date Recorded In the past [...] often do you attend chur ch or episcopalian services? Never 03/21/2024 Do you belong to any clubs o r organizations such as zoroastrianism groups, unions, fraternal or athletic groups, or [...] any time in the past 12 m [facility], were you homeless or living in a [place] health care facility (including now)? No 03/21/2024 Personal Safety Answer Date Recorded Have you ever been in or are you currently in a harmful physical or emotional relationship or is someone making you feel afraid or unsafe? Denies 03/20/2024 Comments Unknown Sex and Gender Information Value Date Recorded Sex Assigned at Not on file Legal Sex Female 3:14 AM DRY ROOM OPERATOR Gender Identity Not on file Sexual [...] 70.3 kg (155 lb) 08/08/2024 3:18 PM DRY ROOM OPERATOR Height 154.9 cm (5' 0.98) 08/08/2024 3:18 PM CS T Body Mass Index 29.3 08/08/2024 3:18 PM DRY ROOM OPERATOR Plan of Treatment Health Maintenance Due Date Last Done Comments Colon Cancer Screening-Colonoscopy 1962 Depression Screening 1962 Hepatitis C Screening 1962 Hepatitis B Screening 1980 Regular Well Visit/Exam 18-64 1980 Zoster Vaccine (1 of 2) 2012 Breast Cancer Screening-Mammogram 11/15/2019 11/14/2018 Covid-19 Vaccine (4 - 2023-2 5 season) 2024 05/21/2021, 08/29/2020, 07/31/2020 Influenza Vaccine (#1) 2025 4, 05/11/2013 DTaP/Tdap/Td Vaccine (2 - Td or Tdap) 12/06/2033 12/07/2023 Pneumococcal vaccine <65 Aged Out No longer eligible based on patient's age to complete this topic Medical Devices Implanted Type Area Hobbing Machine Operator Device Identifier Shelf Expiration Date Model / Serial / Lot [employer] Biofoam Remy 22mm [id number] 22mm Wedge Augmentation Sterile [id number] - [id number] Implanted:Qty: 1 on 03/20/2024 by Daniel Stock Jr., MD at [facility] Left: Ankle [employer] [id number] 12/16/2027 [id number] / / [id number] [employer] Ortholoc 3di 5.5mm 38mm Nonlocking Cortical Thread Low Profile [id number] - [id number] Implanted:Qty: 1 on 03/20/2024 by Daniel Stock Jr., MD at [facility] Left: Ankle [employer] [id number] / / [employer] Allomatrix C Allograft Putty Large Graft 10ml Bone Demineralized 86xc-1000 - [id number] - [id number] Implanted:Qty: 1 on 03/20/2024 by Daniel Stock Jr., MD at [facility] Left: Ankle [employer] [id number] 05/14/2028 86XC-1000 / [id number] / [employer] Graft Bone Augment 3cc Allograft Injectable Kit [id number] - [id number] Implanted:Qty: 1 on 03/20/2024 by Daniel Stock Jr., MD at [facility] Left: Ankle [employer] 03/07/2026 [id number] / / [id number] [employer] Ortholoc 90mm 3x1 Hole Compression 3di Technology Left Anterior [id number] - [id number] Implanted:Qty: 1 on 03/20/2024 by Daniel Stock Jr., MD at [facility] Left: Ankle [employer] [id number] / / [employer] Salvation Ortholoc 5.5mm 30mm Lock On [place] Polyaxial Self Tap [id number] - [id number] Implanted:Qty: 1 on 03/20/2024 by Daniel Stock Jr., MD at [facility] Left: Ankle [employer] [id number] / / [employer] Screw Bone Cortical Full Thread Non Locking Ortholoc 3di 5.5x60mm Ti [id number] - [id number] Implanted:Qty: 1 on 03/20/2024 by Daniel Stock Jr., MD at [facility] Left: Ankle [employer] [id number] / / [employer] Ortholoc 5.5mm 32mm 3di Technology Locking Polyaxial Cortical [id number] - [id number] Implanted:Qty: 1 on 03/20/2024 by Daniel Stock Jr., MD at [facility] Left: Ankle [employer] [id number] / / [employer] Salvation Ortholoc 5.5mm 36mm Lock On [place] Polyaxial Self Tap [id number] - [id number] Implanted:Qty: 1 on 03/20/2024 by Daniel Stock Jr., MD at [facility] Left: Ankle [employer] [id number] / / [employer] Salvation Ortholoc 5.5mm 34mm Lock On [place] Polyaxial Self Tap [id number] - [id number] Implanted:Qty: 1 on 03/20/2024 by Daniel Stock Jr., MD at [facility] Left: Ankle [employer] [id number] / / Insurance CHOICE PLUS [facility]PPO Address: [place] [address] [facility]/PPO Address: [address] [place] [address] [facility]/PPO Address: [address] [place] [address] Advance Directives For more information, please contact: [phone] * Full Code (Latest Code Status on File) Date Activated Date Inactivated Comments 03/20/2024 11:40 AM 03/21/2024 6:54 PM Care Teams Suction Operator Relationship Specialty Start Date End Date Robby Doyle MD [address] [place] [address] PCP - General Internal Medicine 02/14/18
--- OUTSIDE RECORDS SUMMARY | 2025-01-15 14:16 | XMS_ITS | Referral Summary ---
Author Organization [facility] [address] Address [address] [place] [address] Care Team Providers Care Prizer Hand Name Role Phone Robby Doyle MD Primary Care Provider [phone] Allergies Active Allergy Reactions Criticality Noted Date [...] meals Active calcium carb/D3/magnesiu m/zinc (CALCIUM CARB-D3-MAG FPU07-GIPD) [phone] kc-gqdy-gg-mg tablet Take 3 tablets by mouth daily [...] drink = 0.6 oz pur e alcohol) [facility] Utilities Answer Date Recorded In the past 12 months has [employer], gas, oil, or water [employer] threatened to shut off services in your [...] often do you attend chur ch or baptism services? Never 03/21/2024 Do you belong to any clubs o r organizations such as faith groups, unions, fraternal or athletic groups, or [...] any time in the past 12 m [facility], were you homeless or living in a penitentiary (including now)? No 03/21/2024 Personal Safety Answer Date Recorded Have you ever been in or are you currently in a harmful physical or emotional relationship or is someone making you feel afraid or unsafe? Denies 03/20/2024 Comments Unknown Sex and Gender Information Value Date Recorded Sex Assigned at Not on file Legal Sex Female 3:14 AM LITIGATION MANAGER Gender Identity Not on file Sexual [...] 70.3 kg (155 lb) 08/08/2024 3:18 PM LITIGATION MANAGER Height 154.9 cm (5' 0.98) 08/08/2024 3:18 PM CS T Body Mass Index 29.3 08/08/2024 3:18 PM LITIGATION MANAGER Plan of Treatment Not on file Medical Devices Implanted Type Area Bronzer Device Identifier Shelf Expiration Date Model / Serial / Lot [employer] Biofoam Remy 22mm [id number] 22mm Wedge Augmentation Sterile [id number] - [id number] Implanted:Qty: 1 on 03/20/2024 by Daniel Stock Jr., MD at [facility] Left: Ankle [employer] [id number] 12/16/2027 [id number] / / [id number] [employer] Ortholoc 3di 5.5mm 38mm Nonlocking Cortical Thread Low Profile [id number] - [id number] Implanted:Qty: 1 on 03/20/2024 by Daniel Stock Jr., MD at [facility] Left: Ankle [employer] [id number] / / [employer] Allomatrix C Allograft Putty Large Graft 10ml Bone Demineralized 86xc-1000 - [id number] - [id number] Implanted:Qty: 1 on 03/20/2024 by Daniel Stock Jr., MD at [facility] Left: Ankle [employer] [id number] 05/14/2028 86XC-1000 / [id number] / [employer] Graft Bone Augment 3cc Allograft Injectable Kit [id number] - [id number] Implanted:Qty: 1 on 03/20/2024 by Daniel Stock Jr., MD at [facility] Left: Ankle [employer] 03/07/2026 [id number] / / [id number] [employer]ai [employer] Ortholoc 90mm 3x1 Hole Compression 3di Technology Left Anterior [id number] - [id number] Implanted:Qty: 1 on 03/20/2024 by Daniel Stock Jr., MD at [facility] Left: Ankle [employer] [id number] / / [employer] Salvation Ortholoc 5.5mm 30mm Lock On [place] Polyaxial Self Tap [id number] - [id number] Implanted:Qty: 1 on 03/20/2024 by Daniel Stock Jr., MD at [facility] Left: Ankle [employer] [id number] / / [employer] Screw Bone Cortical Full Thread Non Locking Ortholoc 3di 5.5x60mm Ti [id number] - [id number] Implanted:Qty: 1 on 03/20/2024 by Daniel Stock Jr., MD at [facility] Left: Ankle [employer] [id number] / / [employer] Ortholoc 5.5mm 32mm 3di Technology Locking Polyaxial Cortical [id number] - [id number] Implanted:Qty: 1 on 03/20/2024 by Daniel Stock Jr., MD at [facility] Left: Ankle [employer] [id number] / / [employer] Salvation Ortholoc 5.5mm 36mm Lock On [place] Polyaxial Self Tap [id number] - [id number] Implanted:Qty: 1 on 03/20/2024 by Daniel Stock Jr., MD at [facility] Left: Ankle [employer] [id number] / / [employer] Salvation Ortholoc 5.5mm 34mm Lock On [place] Polyaxial Self Tap [id number] - [id number] Implanted:Qty: 1 on 03/20/2024 by Daniel Stock Jr., MD at [facility] Left: Ankle [employer] [id number] / / Insurance [facility] CHOICE PLUS CHOICE PLUS CHOICE PLUS Advance Directives For more information, please contact: [phone] * Full Code (Latest Code Status on File) Date Activated Date Inactivated Comments 03/20/2024 11:40 AM 03/21/2024 6:54 PM Care Teams Prizer Hand Relationship Specialty Start Date End Date Robby Doyle MD [address] [place] [address] PCP - General Internal Medicine 02/14/18
--- OUTSIDE RECORDS SUMMARY | 2025-01-15 14:16 | XMS_ITS | Encounter Summary ---
Author Organization [facility] [employer] [facility] Address [address] [place] [address] Care Team Providers Care Pharmacologist Name Role Phone Robby Doyle MD Primary Care Provider + Reason for Visit * Reason Comments Medication Refill Encounter Details Date Type Department Care Team (Late st Contact Info) Description 08/20/2019 Refill [facility] Oncology [facility] Hematology [facility] [address] [place] [address] Ramsey Harrington MD [facility] [employer] [address] [place] [address] Malignant neoplasm of upper-outer quadrant of [...] on file Legal Sex Female 9:46 AM FLEET SALES 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 Gender Identity Not on file Sexual Orientation Not on file documented as of this encounter Plan of Treatment Upcoming Encounters Date Type Department Care Team (Late st Contact Info) Description 01/29/2025 11:30 AM CDT Office Visit [facility] Oncology and Hematology [address] [place] [address] Ramsey Hrarington MD [facility] [employer] [address] [place] [address] documented as of this encounter Visit Diagnoses Diagnosis Malignant neoplasm of upper-outer quadrant of right breast in female, estrogen receptor positive (CMS/HCC) documented in this encounter Care Teams Pharmacologist Relationship Specialty Start Date End Date Robby Doyle MD [address] [place] [address] PCP - General Internal Medicine 07/20/16 documented as of this encounter
--- OUTSIDE RECORDS SUMMARY | 2025-01-15 14:16 | XMS_ITS | Encounter Summary ---
Author Organization [facility] [employer] [facility] Address [address] [place] [address] Care Team Providers Care Turning Machine Operator Name Role Phone Robby Doyle MD Primary Care Provider + Reason for Visit * Reason Comments Medication Refill Encounter Details Date Type Department Care Team (Late st Contact Info) Description 08/21/2019 Refill [facility] Oncology [facility] Hematology [facility] [address] [place] [address] Ramsey Harrington MD [facility] [employer] [address] [place] [address] Malignant neoplasm of upper-outer quadrant of [...] on file Legal Sex Female 9:46 AM PILLOW AGENT Gender Identity Not on file Sexual Orientation Not on file documented as of this encounter Plan of Treatment Upcoming Encounters Date Type Department Care Team (Late st Contact Info) Description 01/29/2025 11:30 AM CDT Office Visit [facility] Oncology and Hematology [address] [place] [address] Ramsey Harrington MD [facility] [employer] [address] [place] [address] documented as of this encounter Visit Diagnoses Diagnosis Malignant neoplasm of upper-outer quadrant of right breast in female, estrogen receptor positive (CMS/HCC) documented in this encounter Care Teams Turning Machine Operator Relationship Specialty Start Date End Date Robby Doyle MD [address] [place] [address] PCP - General Internal Medicine 07/20/16 documented as of this encounter
--- OUTSIDE RECORDS SUMMARY | 2025-01-15 14:16 | XMS_ITS | Encounter Summary ---
Author Organization [facility] Address [address] [place] [address] Care Team Providers Care Retail Marketing Executive Name Role Phone Robby Doyle MD Primary Care Provider + Encounter Details Date Type Department Care Team (Late Contact Info) Description 01/04/2017 Chart Note [facility] Radiation Therapy [address] [place] [address] [place] [address] [place] [address] Social History Tobacco Use Types Packs/Day Years Used Date Smoking Tobacco: Never Alcohol Use Standard Drinks/Week Comments No 0 (1 standard drink = 0.6 oz pur e alcohol) Comments No Sex and Gender Information Value Date Recorded Sex Assigned at Not on file Legal Sex Female 9:46 AM ASSISTANT PROFESSOR OF ENGLISH Gender Identity Not on file Sexual Orientation Not on file documented as of this encounter Plan of Treatment Upcoming Encounters Date Type Department Care Team (Late Contact Info) Description 01/29/2025 11:30 AM CDT Office Visit [facility] Oncology and Hematology - [place] [address] [facility] [address] [place] [address] Ramsey Harrington MD [address] [facility] [address] [place] [address] documented as of this encounter Visit Diagnoses Not on filedocumented in this encounter Care Teams Retail Marketing Executive Relationship Specialty Start Date End Date Robby Doyle MD [address] [place] [address] PCP - General Internal Medicine 07/20/16 documented as of this encounter
[2025-01-15 15:03] LABS: Hematocrit 37.6 % (37.0-47.0); Hemoglobin 11.9 g/dL (12.0-15.0); Immature Granulocyte Percent A 0.3 % (0-0.5); Lymphocytes Absolute Auto 1.59 K/mm3 (0.9-3.2); Mean Corpuscular HGB Conc 31.6 g/dl (32-36); Mean Corpuscular Hemoglobin 27.5 pg (26-34); Mean Corpuscular Volume 86.8 fl (80-100); Nucleated Red Blood Cells Absolute Auto 0.000 K/mm3 (0.0-0.012); Nucleated Red Blood Cells Perc 0.0 % (0.0-0.2); Platelet Count Result 250 k/mm3 (150-375); Red Blood Count 4.33 M/mm3 (4.2-5.4); White Blood Count 11.3 K/mm3 (4.5-10.0)
[2025-01-15 15:43] LABS: Influenza A QL RT-PCR Negative (Negative); Influenza B QL RT-PCR Negative (Negative); RSV RNA, RT-PCR Negative (Negative); SARS-CoV-2 RNA PCR Negative (Negative)
== END 2025-01-15 14:11 | disposition home or self-care (01) ==
PROVIDERS: PCP Internal Medicine; Visit Provider Internal Medicine
DX: R50.9 Fever, unspecified (principal); R05.9 Cough, unspecified
CPT/HCPCS: 36415; 85025; 87637

== ENCOUNTER 2025-01-21 10:06 | Outpatient (CLI) | payer OTHER, SELFPAY ==
--- OUTSIDE RECORDS SUMMARY | 2025-01-21 10:13 | XMS_ITS | Clinical Summary ---
Author Organization [facility] Address [address] [place] [address] Care Team Providers Care Protohistorian Name Role Phone Robby Doyle MD Primary Care Provider [phone] Source Comments [facility],non-owned Affiliates and Associated Physician Practices is amultiple site organization consisting of ambulatory clinics and hospital sitesin [place], [place], [place] and [place]. This disclosure is being madepursuant to the Care Everywhere program and may not contain all information available regarding this patient. Last updated 18.[facility] Allergies Active Allergy Reactions Criticality Noted Date [...] on file Legal Sex Female 7:54 AM DISTRIBUTION MANAGER Gender Identity Not on file Sexual [...] 90.7 kg (200 lb) 06/11/2009 12:08 PM DISTRIBUTION MANAGER Height 161.3 cm (5' 3.5) 06/11/2009 12:08 PM CS T Body Mass Index 34.87 06/11/2009 12:08 PM DISTRIBUTION MANAGER Plan of Treatment Health Maintenance Due Date [...] VACCINE (1 of 2) 2012 COVID-19 VACCINE (1 - 2023-2 5 season) 2024 DEPRESSION SCREENING 07/11/2024 INFLUENZA VACCINE (#1) 2025 Respiratory Syncytial Virus (RSV) Vaccine Pt: [...] age to complete this topic Care Teams Protohistorian Relationship Specialty Start Date End Date Robby Doyle MD [address] [place] [address] PCP - General 04/14/09
--- OUTSIDE RECORDS SUMMARY | 2025-01-21 10:13 | XMS_ITS | Referral Summary ---
Author Organization [facility] [address] Address [address] [place] [address] Care Team Providers Care Blueprint Processor Name Role Phone Robby Doyle MD Primary Care Provider [phone] Allergies Active Allergy Reactions Criticality Noted Date [...] meals Active calcium carb/D3/magnesiu m/zinc (CALCIUM CARB-D3-MAG PRD00-XGXZ) [phone] xg-lixj-nh-mg tablet Take 3 tablets by mouth daily [...] drink = 0.6 oz pur e alcohol) [facility] Utilities Answer Date Recorded In the past 12 months has [employer] electric, gas, oil, or water [employer] threatened to shut off services in your [...] often do you attend chur ch or pentecostalism services? Never 03/21/2024 Do you belong to any clubs o r organizations such as mu-ism groups, unions, fraternal or athletic groups, or [...] any time in the past 12 m [facility], were you homeless or living in a custodial (including now)? No 03/21/2024 Personal Safety Answer Date Recorded Have you ever been in or are you currently in a harmful physical or emotional relationship or is someone making you feel afraid or unsafe? Denies 03/20/2024 Comments Unknown Sex and Gender Information Value Date Recorded Sex Assigned at Not on file Legal Sex Female 3:14 AM PATIENT SERVICES COORDINATOR Gender Identity Not on file Sexual Orientation [...] 70.3 kg (155 lb) 08/08/2024 3:18 PM PATIENT SERVICES COORDINATOR Height 154.9 cm (5' 0.98) 08/08/2024 3:18 PM CS T Body Mass Index 29.3 08/08/2024 3:18 PM PATIENT SERVICES COORDINATOR Plan of Treatment Not on file Medical Devices Implanted Type Area Electrician Aircraft Device Identifier Shelf Expiration Date Model / Serial / Lot ROBLOX Biofoam Remy 22mm [id number] 22mm Wedge Augmentation Sterile [id number] - [id number] Implanted:Qty: 1 on 03/20/2024 by Daniel Stock Jr., MD at [facility] Left: Ankle [employer] [id number] 12/16/2027 [id number] / / [id number] [employer] Ortholoc 3di 5.5mm 38mm Nonlocking Cortical Thread Low Profile [id number] - [id number] Implanted:Qty: 1 on 03/20/2024 by Daniel Stock Jr., MD at [facility] Left: Ankle [employer]OX [id number] / / [email or web address] Allomatrix C Allograft Putty Large Graft 10ml Bone Demineralized 86xc-1000 - [id number] - [id number] Implanted:Qty: 1 on 03/20/2024 by Daniel Stock Jr., MD at [facility] Left: Ankle [employer]OX [id number] 05/14/2028 86XC-1000 / [id number] / ROBLOX Graft Bone Augment 3cc Allograft Injectable Kit [id number] - [id number] Implanted:Qty: 1 on 03/20/2024 by Daniel Stock Jr., MD at [facility] Left: Ankle [email or web address] 03/07/2026 [id number] / / [id number] Rai [employer] Inc Ortholoc 90mm 3x1 Hole Compression 3di Technology Left Anterior [id number] - [id number] Implanted:Qty: 1 on 03/20/2024 by Daniel Stock Jr., MD at [facility] Left: Ankle [employer] Inc [id number] / / [employer] Inc Salvation Ortholoc 5.5mm 30mm Lock On Worth Polyaxial Self Tap [id number] - [id number] Implanted:Qty: 1 on 03/20/2024 by Daniel Stock Jr., MD at [facility] Left: Ankle [employer] Inc [id number] / / Relypsa Medical [employer] Inc Screw Bone Cortical Full Thread Non Locking Ortholoc 3di 5.5x60mm Ti [id number] - [id number] Implanted:Qty: 1 on 03/20/2024 by Daniel Stock Jr., MD at [facility] Left: Ankle Relypsa [employer] Inc [id number] / / R[employer] Inc Ortholoc 5.5mm 32mm 3di Technology Locking Polyaxial Cortical [id number] - [id number] Implanted:Qty: 1 on 03/20/2024 by Daniel Stock Jr., MD at [facility] Left: Ankle [employer] Inc [id number] / / R[employer] Salvation Ortholoc 5.5mm 36mm Lock On [place] Polyaxial Self Tap [id number] - [id number] Implanted:Qty: 1 on 03/20/2024 by Daniel Stock Jr., MD at [facility] Left: Ankle [employer] Inc [id number] / / Relypsa [employer] Inc Salvation Ortholoc 5.5mm 34mm Lock On [place] Polyaxial Self Tap [id number] - [id number] Implanted:Qty: 1 on 03/20/2024 by Daniel Stock Jr., MD at [facility] Left: Ankle R[employer] Inc [id number] / / Insurance [facility] CHOICE PLUS CHOICE [place] [address] Advance Directives For more information, please contact: [phone] * Full Code (Latest Code Status on File) Date Activated Date Inactivated Comments 03/20/2024 11:40 AM 03/21/2024 6:54 PM Care Teams Blueprint Processor Relationship Specialty Start Date End Date Robby Doyle MD [address] [place] [address] PCP - General Internal Medicine 02/14/18
--- OUTSIDE RECORDS SUMMARY | 2025-01-21 10:13 | XMS_ITS | Encounter Summary ---
Author Organization [facility] Address [address] [place] [address] Care Team Providers Care Parboiler Name Role Phone Robby Doyle MD Primary Care Provider + Reason for Visit * Reason Comments Medication Refill Encounter Details Date Type Department Care Team (Late st Contact Info) Description 08/20/2019 Refill [facility] Oncology [facility] Hematology [facility] [address] [place] [address] Ramsey Harrington MD [email or web address] [address] [place] [address] Malignant neoplasm of upper-outer quadrant of [...] on file Legal Sex Female 9:46 AM BUSINESS 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 Gender Identity Not on file Sexual Orientation Not on file documented as of this encounter Plan of Treatment Upcoming Encounters Date Type Department Care Team (Late st Contact Info) Description 01/29/2025 11:30 AM CDT Office Visit [facility] Oncology and Hematology [address] [place] [address] Ramsey Harrington MD [email or web address] [address] [place] [address] documented as of this encounter Visit Diagnoses Diagnosis Malignant neoplasm of upper-outer quadrant of right breast in female, estrogen receptor positive (CMS/HCC) documented in this encounter Care Teams Parboiler Relationship Specialty Start Date End Date Robby Doyle MD [address] [place] [address] PCP - General Internal Medicine 07/20/16 documented as of this encounter
--- OUTSIDE RECORDS SUMMARY | 2025-01-21 10:13 | XMS_ITS ---
Author Organization [facility] Address [facility] [place] [address] Care Team Providers Care Director Of Safety Name Role Phone Robby Doyle MD Primary [...]
--- OUTSIDE RECORDS SUMMARY | 2025-01-21 10:13 | XMS_ITS | Encounter Summary ---
Author Organization [facility] Address [address] [place] [address] Care Team Providers Care Clip On Sunglasses Assembler Name Role Phone Robby Doyle MD Primary Care Provider + Encounter Details Date Type Department Care Team (Late Contact Info) Description 01/04/2017 Chart Note [facility] Radiation Therapy [address] [place] [address] [place] [address] [place] [address] Social History Tobacco Use Types Packs/Day Years Used Date Smoking Tobacco: Never Alcohol Use Standard Drinks/Week Comments No 0 (1 standard drink = 0.6 oz pur e alcohol) Comments No Sex and Gender Information Value Date Recorded Sex Assigned at Not on file Legal 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 Female 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 Gender Identity Not on file Sexual Orientation Not on file documented as of this encounter Plan of Treatment Upcoming Encounters Date Type Department Care Team (Late Contact Info) Description 01/29/2025 11:30 AM CDT Office Visit [facility] Oncology and Hematology - [place] [address] [facility] [address] [place] [address] Ramsey Harrington MD [address] [facility] [address] [place] [address] documented as of this encounter Visit Diagnoses Not on filedocumented in this encounter Care Teams Clip On Sunglasses Assembler Relationship Specialty Start Date End Date Robby Doyle MD [address] [place] [address] PCP - General Internal Medicine 07/20/16 documented as of this encounter
--- OUTSIDE RECORDS SUMMARY | 2025-01-21 10:13 | XMS_ITS | Clinical Summary ---
Author Organization [facility] [address] Address [address] [place] [address] Care Team Providers Care Printing Mechanist Name Role Phone Robby Doyle MD Primary Care Provider [phone] Allergies Active Allergy Reactions Criticality Noted Date [...] meals Active calcium carb/D3/magnesiu m/zinc (CALCIUM CARB-D3-MAG AMU16-TYOA) [phone] lr-dntb-fh-mg tablet Take 3 tablets by mouth daily [...] drink = 0.6 oz pur e alcohol) [facility] Utilities Answer Date Recorded In the [...] often do you attend chur ch or church services? Never 03/21/2024 Do you belong to any clubs o r organizations such as yazdanism groups, unions, fraternal or athletic groups, or [...] any time in the past 12 m [facility], were you homeless or living in a correction (including now)? No 03/21/2024 Personal Safety Answer Date Recorded Have you ever been in or are you currently in a harmful physical or emotional relationship or is someone making you feel afraid or unsafe? Denies 03/20/2024 Comments Unknown Sex and Gender Information Value Date Recorded Sex Assigned at Not on file Legal Sex Female 3:14 AM DESIGN PAINTER Gender Identity Not on file Sexual Orientation [...] 70.3 kg (155 lb) 08/08/2024 3:18 PM DESIGN PAINTER Height 154.9 cm (5' 0.98) 08/08/2024 3:18 PM CS T Body Mass Index 29.3 08/08/2024 3:18 PM DESIGN PAINTER Plan of Treatment Health Maintenance Due Date [...] this topic Medical Devices Implanted Type Area General Assembler Device Identifier Shelf Expiration Date Model / Serial / Lot [employer] Biofoam Remy 22mm [id number] 22mm Wedge Augmentation Sterile [id number] - [id number] Implanted:Qty: 1 on 03/20/2024 by Daniel Sotck Jr., MD at [facility] Left: Ankle [employer] Inc [id number] 12/16/2027 [id number] / / [id number] Sul[employer] Inc Ortholoc 3di 5.5mm 38mm Nonlocking Cortical Thread Low Profile [id number] - [id number] Implanted:Qty: 1 on 03/20/2024 by Daniel Stock Jr., MD at [facility] Left: Ankle [employer] Inc [id number] / / [employer] Allomatrix C Allograft Putty Large Graft 10ml Bone Demineralized 86xc-1000 - [id number] - [id number] Implanted:Qty: 1 on 03/20/2024 by Daniel Stock Jr., MD at [facility] Left: Ankle [employer] [id number] 05/14/2028 86XC-1000 / [id number] / [employer] Graft Bone Augment 3cc Allograft Injectable Kit [id number] - [id number] Implanted:Qty: 1 on 03/20/2024 by Daniel Stock Jr., MD at [facility] Left: Ankle [employer] with [employer] Inc 03/07/2026 [id number] / / [id number] Sul[employer] Inc Ortholoc 90mm 3x1 Hole Compression 3di Technology Left Anterior [id number] - [id number] Implanted:Qty: 1 on 03/20/2024 by Daniel Stock Jr., MD at [facility] Left: Ankle [employer]ai [employer] Inc [id number] / / Anadys [employer] Inc Salvation Ortholoc 5.5mm 30mm Lock On [place] Polyaxial Self Tap [id number] - [id number] Implanted:Qty: 1 on 03/20/2024 by Daniel Stock Jr., MD at [facility] Left: Ankle [employer]adys [employer] Inc [id number] / / Sul[employer] Inc Screw Bone Cortical Full Thread Non Locking Ortholoc 3di 5.5x60mm Ti [id number] - [id number] Implanted:Qty: 1 on 03/20/2024 by Daniel Stock Jr., MD at [facility] Left: Ankle [employer] Inc [id number] / / Rai [employer] Inc Ortholoc 5.5mm 32mm 3di Technology Locking Polyaxial Cortical [id number] - [id number] Implanted:Qty: 1 on 03/20/2024 by Daniel Stock Jr., MD at [facility] Left: Ankle [employer] Inc [id number] / / Rai [employer] Inc Salvation Ortholoc 5.5mm 36mm Lock On [place] Polyaxial Self Tap [id number] - [id number] Implanted:Qty: 1 on 03/20/2024 by Daniel Stock Jr., MD at [facility] Left: Ankle [employer] Inc [id number] / / Rai [employer] Inc Salvation Ortholoc 5.5mm 34mm Lock On [place] Polyaxial Self Tap [id number] - [id number] Implanted:Qty: 1 on 03/20/2024 by Daniel Stock Jr., MD at [facility] Left: Ankle Rai [employer] Inc [id number] / / Insurance CHOICE PLUS Advance Directives For more information, please contact: [phone] * Full Code (Latest Code Status on File) Date Activated Date Inactivated Comments 03/20/2024 11:40 AM 03/21/2024 6:54 PM Care Teams Printing Mechanist Relationship Specialty Start Date End Date Robby Doyle MD [address] [place] [address] PCP - General Internal Medicine 02/14/18
--- OUTSIDE RECORDS SUMMARY | 2025-01-21 10:13 | XMS_ITS | Encounter Summary ---
Author Organization [facility] Address [address] [place] [address] Care Team Providers Care Boiler House Supervisor Name Role Phone Robby Doyle MD Primary Care Provider + Reason for Visit * Reason Comments Medication Refill Encounter Details Date Type Department Care Team (Late st Contact Info) Description 08/21/2019 Refill [facility] Oncology [facility] Hematology [facility] [address] [place] [address] Ramsey Harrington MD [facility] [employer] [address] [place] [address] Malignant neoplasm of upper-outer quadrant of [...] on file Legal 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 Female 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 Gender Identity Not on file Sexual Orientation Not on file documented as of this encounter Plan of Treatment Upcoming Encounters Date Type Department Care Team (Late st Contact Info) Description 01/29/2025 11:30 AM CDT Office Visit [facility] Oncology and Hematology [address] [place] [address] Ramsey Harrington MD [facility] [employer] [address] [place] [address] documented as of this encounter Visit Diagnoses Diagnosis Malignant neoplasm of upper-outer quadrant of right breast in female, estrogen receptor positive (CMS/HCC) documented in this encounter Care Teams Boiler House Supervisor Relationship Specialty Start Date End Date Robby Doyle MD [address] [place] [address] PCP - General Internal Medicine 07/20/16 documented as of this encounter
--- OUTSIDE RECORDS SUMMARY | 2025-01-21 10:13 | XMS_ITS | Clinical Summary ---
Author Organization [facility] Address [address] [place] [address] Care Team Providers Care Case Management Manager Name Role Phone Robby Doyle MD [...] for Congestion. Active fluticasone (FLONASE) 50 mcg/spray [place], Suspension Administer 2 Sprays in each nostril [...] STL ABSTRACTION Provider, Abstract 12/17/2024 Orders Only [facility] Oncology and Hematology - [place] [address] [place] [address] Ramsey Harrington MD 11/29/2024 External Device [...] on file Legal Sex Female 9:46 AM CALL TAKER Gender Identity Not on file Sexual Orientation Not on file Last Filed Vital Signs Vital Sign Reading Time Taken Comments Blood Pressure 142/78 07/31/2024 11:41 AM CALL TAKER Pulse 67 07/31/2024 11:41 AM CALL TAKER Temperature 36 C (96.8 F) 07/31/2024 11:41 AM CALL TAKER Respiratory Rate 14 07/31/2024 11:41 AM CALL TAKER Oxygen Saturation 93% 07/31/2024 11:41 AM CALL TAKER Inhaled Oxygen Concentration - - Weight 69.9 kg (154 lb) 07/31/2024 11:41 AM CALL TAKER Height 154.9 cm (5' 1) 12/22/2021 10:26 AM CDT Body Mass Index 29.1 12/22/2021 10:26 AM CDT Plan of Treatment Upcoming Encounters Date Type Department Care Team (Late st Contact Info) Description 01/29/2025 11:30 AM CDT Office Visit [facility] Oncology and Hematology - [place] [address] [facility] [address] [place] [address] Ramsey Harrington MD [address] [facility] [address] [place] [address] Health Maintenance Due Date Last [...] Final Result from Last 3 Months Insurance [facility] Address: [place] [id number] [place] [address] Advance Directives For more information, please contact: [phone] Documents on File Type Date Recorded Patient Service Desk Lead Expl anation Authorization to Represent 06/29/2021 11:19 AM Fax Certificate of medical necessity- breast prosthesis Care Teams Case Management Manager Relationship Specialty Start Date End Date Robby Doyle MD [address] [place] [address] PCP - General Internal Medicine 07/20/16
[2025-01-21 10:35] LABS: Hematocrit 37.6 % (37.0-47.0); Hemoglobin 11.8 g/dL (12.0-15.0); Immature Granulocyte Percent A 0.9 % (0-0.5); Lymphocytes Absolute Auto 1.46 K/mm3 (0.9-3.2); Mean Corpuscular HGB Conc 31.4 g/dl (32-36); Mean Corpuscular Hemoglobin 27.4 pg (26-34); Mean Corpuscular Volume 87.4 fl (80-100); Nucleated Red Blood Cells Absolute Auto 0.000 K/mm3 (0.0-0.012); Nucleated Red Blood Cells Perc 0.0 % (0.0-0.2); Platelet Count Result 371 k/mm3 (150-375); Red Blood Count 4.30 M/mm3 (4.2-5.4); White Blood Count 5.6 K/mm3 (4.5-10.0)
[2025-01-21 11:18] LABS: Alanine Aminotransferase 33 U/L (6-35); Albumin Level 3.5 g/dL (3.5-5.1); Alkaline Phosphatase 154 U/L (38-126); Anion Gap 5 mmol/L (4-12); Aspartate Amino Transferase 30 U/L (14-36); Bilirubin,Total 0.3 mg/dL (0.2-1.3); Blood Urea Nitrogen 20 mg/dL (7-17); Calcium 9.5 mg/dL (8.4-10.2); Carbon Dioxide 30 mmol/L (22-30); Chloride 103 mmol/L (98-107); Estimated Glomerular Filt Rate > 60; Glucose 95 mg/dL (65-110); Potassium 4.1 mmol/L (3.4-5.0); Sodium 138 mmol/L (137-145); Total Protein 6.5 g/dL (6.3-8.2)
== END 2025-01-21 10:07 | disposition home or self-care (01) ==
PROVIDERS: PCP Internal Medicine; Visit Provider Internal Medicine Hematology & Oncology
DX: C50.411 Malignant neoplasm of upper-outer quadrant of right female breast (principal); Z17.0 Estrogen receptor positive status [ER+]
CPT/HCPCS: 36415; 80053; 85025; 86300; 99212; G0463

== ENCOUNTER 2025-02-26 10:12 | Outpatient (CLI) | payer OTHER, SELFPAY ==
--- OUTSIDE RECORDS SUMMARY | 2025-02-26 10:36 | XMS_ITS | Clinical Summary ---
Author Organization [facility] Address [address] [place] [address] Care Team Providers Care Sales Administration Manager Name Role Phone Robby Doyle MD Primary Care Provider [phone] Source Comments [facility],non-owned Affiliates and Associated Physician Practices is amultiple site organization consisting of ambulatory clinics and hospital sitesin [place], [place], [place] and [place]. This disclosure is being madepursuant to the Care Everywhere program and may not contain all information available regarding this patient. Last updated 18.[facility] Allergies Active Allergy Reactions Criticality Noted Date [...] on file Legal Sex Female 7:54 AM FLAKING ROLL OPERATOR Gender Identity Not on file Sexual [...] 90.7 kg (200 lb) 06/11/2009 12:08 PM FLAKING ROLL OPERATOR Height 161.3 cm (5' 3.5) 06/11/2009 12:08 PM CS T Body Mass Index 34.87 06/11/2009 12:08 PM FLAKING ROLL OPERATOR Plan of Treatment Health Maintenance Due [...] age to complete this topic Care Teams Sales Administration Manager Relationship Specialty Start Date End Date Robby Doyle MD [address] [place] [address] PCP - General 04/14/09
--- OUTSIDE RECORDS SUMMARY | 2025-02-26 10:36 | XMS_ITS ---
Author Organization [facility] Address [facility] [place] [address] Care Team Providers Care Dispensing Audiologist Name Role Phone Robby Doyle MD Primary [...]
--- OUTSIDE RECORDS SUMMARY | 2025-02-26 10:36 | XMS_ITS | Encounter Summary ---
Author Organization [facility] [employer] [facility] Address [address] [place] [address] Care Team Providers Care Minister Of Religion Name Role Phone Robby Doyle MD Primary Care Provider + Reason for Visit * Reason Comments Medication Refill Encounter Details Date Type Department Care Team (Late st Contact Info) Description 08/21/2019 Refill [facility] Oncology [facility] Hematology [facility] [address] [place] [address] Ramsey Harrington MD [facility] [employer] [address] [place] [address] Malignant neoplasm of upper-outer quadrant of [...] on file 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 Female 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 Gender Identity Not on file Sexual Orientation Not on file documented as of this encounter Plan of Treatment Upcoming Encounters Date Type Department Care Team (Late st Contact Info) Description 10/29/2025 11:00 AM CDT Office Visit [facility] Oncology and Hematology [address] [place] [address] Ramsey Harringtno MD [facility] [employer] [address] [place] [address] documented as of this encounter Visit Diagnoses Diagnosis Malignant neoplasm of upper-outer quadrant of right breast in female, estrogen receptor positive (CMS/HCC) documented in this encounter Care Teams Minister Of Religion Relationship Specialty Start Date End Date Robby Doyle MD [address] [place] [address] PCP - General Internal Medicine 07/20/16 documented as of this encounter
--- OUTSIDE RECORDS SUMMARY | 2025-02-26 10:36 | XMS_ITS | Encounter Summary ---
Author Organization [facility] [email or web address] [facility] Address [address] [place] [address] Care Team Providers Care Dental Scheduling Coordinator Name Role Phone Robby Doyle MD Primary Care Provider + Reason for Visit * Reason Comments Medication Refill Encounter Details Date Type Department Care Team (Late st Contact Info) Description 08/20/2019 Refill [facility] H[facility] [address] [place] [address] Ramsey Harrington MD [facility] [employer] [address] [place] [address] Malignant neoplasm of upper-outer quadrant of [...] on file Legal Sex Female 9:46 AM NURSING EDUCATOR Gender Identity Not on file Sexual Orientation Not on file documented as of this encounter Plan of Treatment Upcoming Encounters Date Type Department Care Team (Late st Contact Info) Description 10/29/2025 11:00 AM CDT Office Visit [facility] and Hematology [address] [place] [address] Ramsey Harrington MD [facility] [employer] [address] [place] [address] documented as of this encounter Visit Diagnoses Diagnosis Malignant neoplasm of upper-outer quadrant of right breast in female, estrogen receptor positive (CMS/HCC) documented in this encounter Care Teams Dental Scheduling Coordinator Relationship Specialty Start Date End Date Robby Doyle MD [address] [place] [phone] PCP - General Internal Medicine 07/20/16 documented as of this encounter
--- OUTSIDE RECORDS SUMMARY | 2025-02-26 10:36 | XMS_ITS | Encounter Summary ---
Author Organization [facility] Address [address] [place] [address] Care Team Providers Care Title Processor Name Role Phone Robby Doyle MD Primary Care Provider + Encounter Details Date Type Department Care Team (Late Contact Info) Description 01/04/2017 Chart Note [facility] Radiation Therapy [address] [place] [address] [place] [address] [place] [address] Social History Tobacco Use Types Packs/Day Years Used Date Smoking Tobacco: Never Alcohol Use Standard Drinks/Week Comments No 0 (1 standard drink = 0.6 oz pur e alcohol) Comments No Sex and Gender Information Value Date Recorded Sex Assigned at Not on file Legal Sex Female 9:46 AM SASH MAKER Gender Identity Not on file Sexual Orientation Not on file documented as of this encounter Plan of Treatment Upcoming Encounters Date Type Department Care Team (Late Contact Info) Description 10/29/2025 11:00 AM CDT Office Visit [facility] Oncology and Hematology - [place] [address] [facility] [address] [place] [address] Ramsey Harrington MD [address] [facility] [address] [place] [address] documented as of this encounter Visit Diagnoses Not on filedocumented in this encounter Care Teams Title Processor Relationship Specialty Start Date End Date Robby Doyle MD [address] [place] [address] PCP - General Internal Medicine 07/20/16 documented as of this encounter
--- OUTSIDE RECORDS SUMMARY | 2025-02-26 10:36 | XMS_ITS | Clinical Summary ---
Author Organization [facility] [address] Address [address] [place] [address] Care Team Providers Care Javascript Ui Developer Name Role Phone Robby Doyle MD Primary Care Provider [phone] Allergies Active Allergy Reactions Criticality Noted Date [...] meals Active calcium carb/D3/magnesiu m/zinc (CALCIUM CARB-D3-MAG VLH99-FZZL) [phone] tk-xlat-ii-mg tablet Take 3 tablets by mouth daily [...] drink = 0.6 oz pur e alcohol) [facility] Utilities Answer Date Recorded In the past 12 months has e electric, gas, oil, or water company threatened to shut off services in your home? No 03/21/2024 Social Connection and Isolation Panel Answer Date Recorded In a typical week, how many times do you talk on the phone with family, friends, or neighbors? More than three times a week 03/21/2024 How often do you get togethe r with friends or relatives? More than three times a week 03/21/2024 How often do you attend chur ch or sikhism services? Never 03/21/2024 Do you belong to any clubs o r organizations such as sikhism groups, unions, fraternal or athletic groups, or [...] any time in the past 12 m [facility], were you homeless or living in a fci (including now)? No 03/21/2024 Personal Safety Answer Date Recorded Have you ever been in or are you currently in a harmful physical or emotional relationship or is someone making you feel afraid or unsafe? Denies 03/20/2024 Comments Unknown Sex and Gender Information Value Date Recorded Sex Assigned at Not on file Legal Sex Female 3:14 AM DIRECTOR PATIENT ACCOUNTING Gender Identity Not on file Sexual Orientation [...] 70.3 kg (155 lb) 08/08/2024 3:18 PM DIRECTOR PATIENT ACCOUNTING Height 154.9 cm (5' 0.98) 08/08/2024 3:18 PM CS T Body Mass Index 29.3 08/08/2024 3:18 PM DIRECTOR PATIENT ACCOUNTING Plan of Treatment Health Maintenance Due Date Last Done Comments Colon Cancer Screening-Colonoscopy 1962 Depression Screening 1962 Hepatitis C Screening 1962 Hepatitis B Screening 1980 Regular Well Visit/Exam 18-64 1980 Zoster Vaccine (1 of 2) 2012 Breast Cancer Screening-Mammogram 11/15/2019 11/14/2018 Covid-19 Vaccine ( - 2023-2 5 season) 2024 05/21/2021, 08/29/2020, 07/31/2020 Influenza Vaccine (#1) 2025 4, 05/11/2013 DTaP/Tdap/Td Vaccine (2 - Td or Tdap) 12/06/2033 12/07/2023 Pneumococcal vaccine <65 Aged Out No longer eligible based on patient's age to complete this topic Medical Devices Implanted Type Area Investment Broker Device Identifier Shelf Expiration Date Model / Serial / Lot [employer] Biofoam Remy 22mm [id number] 22mm Wedge Augmentation Sterile [id number] - [id number] Implanted:Qty: 1 on 03/20/2024 by Daniel Stock Jr., MD at [facility] Left: Ankle [employer] [id number] 12/16/2027 [id number] / / [id number] [employer] Ortholoc 3di 5.5mm 38mm Nonlocking Cortical Thread Low Profile [id number] - [id number] Implanted:Qty: 1 on 03/20/2024 by Daniel Stock Jr., MD at [facility] Left: Ankle [employer] [id number] / / [employer] Allomatrix C Allograft Putty Large Graft 10ml Bone Demineralized 86xc-1000 - [id number] - [id number] Implanted:Qty: 1 on 03/20/2024 by Daniel Stock Jr., MD at [facility] Left: Ankle [employer] [id number] 05/14/2028 86XC-1000 / [id number] / [employer] Graft Bone Augment 3cc Allograft Injectable Kit [id number] - [id number] Implanted:Qty: 1 on 03/20/2024 by Daniel Stock Jr., MD at [facility] Left: Ankle [employer] 03/07/2026 [id number] / / [id number] [employer] Ortholoc 90mm 3x1 Hole Compression 3di Technology Left Anterior [id number] - [id number] Implanted:Qty: 1 on 03/20/2024 by Daniel Stock Jr., MD at [facility] Left: Ankle [employer] [id number] / / [employer] Salvation Ortholoc 5.5mm 30mm Lock On [place] Polyaxial Self Tap [id number] - [id number] Implanted:Qty: 1 on 03/20/2024 by Daniel Stock Jr., MD at [facility] Left: Ankle [employer] [id number] / / [employer] Screw Bone Cortical Full Thread Non Locking Ortholoc 3di 5.5x60mm Ti [id number] - [id number] Implanted:Qty: 1 on 03/20/2024 by Daniel Stock Jr., MD at [facility] Left: Ankle [employer] [id number] / / [employer] Ortholoc 5.5mm 32mm 3di Technology Locking Polyaxial Cortical [id number] - [id number] Implanted:Qty: 1 on 03/20/2024 by Daniel Stock Jr., MD at [facility] Left: Ankle [employer] [id number] / / [employer] Salvation Ortholoc 5.5mm 36mm Lock On [place] Polyaxial Self Tap [id number] - [id number] Implanted:Qty: 1 on 03/20/2024 by Daniel Stock Jr., MD at [facility] Left: Ankle [employer] [id number] / / [employer] Salvation Ortholoc 5.5mm 34mm Lock On [place] Polyaxial Self Tap [id number] - [id number] Implanted:Qty: 1 on 03/20/2024 by Daniel Stock Jr., MD at [facility] Left: Ankle [employer] [id number] / / Insurance CHOICE PLUS CHOICE PLUS Advance Directives For more information, please contact: [phone] * Full Code (Latest Code Status on File) Date Activated Date Inactivated Comments 03/20/2024 11:40 AM 03/21/2024 6:54 PM Care Teams Javascript Ui Developer Relationship Specialty Start Date End Date Robby Doyle MD [address] [place] [address] PCP - General Internal Medicine 02/14/18
--- OUTSIDE RECORDS SUMMARY | 2025-02-26 10:36 | XMS_ITS | Clinical Summary ---
Author Organization [facility] Address [address] [place] [address] Care Team Providers Care Wireline Supervisor Name Role Phone Robby Doyle MD [...] for Congestion. Active fluticasone (FLONASE) 50 mcg/spray [place], Suspension Administer 2 Sprays in each nostril [...] 3 TIMES DAILY 270 Capsule 5 5 01/30/20 25 Discontinu ed(Reorder ) pregabalin (LYRICA) 75 mg CapsuleIndicat ions:Malignant neoplasm of upper-outer quadrant of right breast in female, estrogen receptor positive (CMS/HCC) TAKE 1 CAPSULE 2 TO 3 TIMES DAILY 270 Capsule 5 5 01/30/20 25 Discontinu ed(Reorder ) Active Problems Problem [...] Encounters Date Type Department Care Team Description 02/19/2025 External Device Data [facility] ABSTRACTION Provider, Abstract 02/13/2025 External Device Data [facility] ABSTRACTION Provider, Abstract 01/29/2025 11:30 AM CDT Office Visit [facility] Oncology and Hematology [facility] [address] [place] [address] Ramsey Harrington MD Malignant neoplasm of upper-outer quadrant of right breast in female, estrogen receptor positive (CMS/HCC) (Primary Dx) 01/29/2025 Refill [facility] Oncology and Hematology [facility] [address] [place] [address] Ramsey Harrington MD Malignant neoplasm of upper-outer quadrant of right breast in female, estrogen receptor positive (CMS/HCC) 01/23/2025 External Device Data STL ABSTRACTION Provider, Abstract 01/23/2025 External Device Data ST[place] ABSTRACTION Provider, Abstract 01/22/2025 Orders Only [facility] Oncology and Hematology - [place] [address] [place] [address] Ramsey Harrington MD 12/26/2024 External Device Data ST[facility] ABSTRACTION Provider, Abstract 12/17/2024 Orders Only [facility] Oncology and Hematology [address] [place] [address] Ramsey Harrington MD 11/29/2024 External Device Data [...] on file Legal Sex Female 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 Gender Identity Not on file Sexual Orientation Not on file Last Filed Vital Signs Vital Sign Reading Time Taken Comments Blood Pressure 123/71 01/29/2025 11:25 AM CDT Pulse 82 01/29/2025 11:25 AM CDT Temperature 36.8 C (98.3 F) 01/29/2025 11:25 AM CDT Respiratory Rate 16 01/29/2025 11:25 AM CDT Oxygen Saturation 91% 01/29/2025 11:25 AM CDT Inhaled Oxygen Concentration - - Weight 69.5 kg (153 lb 3.2 oz) 01/29/2025 11:25 AM CDT Height 154.9 cm (5' 1) 12/22/2021 10:26 AM CDT Body Mass Index 28.95 12/22/2021 10:26 AM CDT Plan of Treatment Upcoming Encounters Date Type Department Care Team (Late st Contact Info) Description 10/29/2025 11:00 AM CDT Office Visit [facility] Oncology and Hematology - [place] [address] [facility] [address] [place] [address] Ramsey Harrington MD [address] [facility] [address] [place] [address] Health Maintenance Due Date Last [...] Associated Diagnosis Comments CANCER ANTIGEN 15-3 Routine 01/21/2025 3:58 PM CDT MAMMO DIAGNOSTIC UNI LEFT W OR WO CAD Routine 12/17/2024 2:17 PM CDT from Last 3 Months Results * CANCER ANTIGEN 15-3 (01/21/2025 3:58 PM CDT) Blood us Ramsey Harrington MD CHEMISTRY ORDERABLES Final Resu lt * MAMMO DIAGNOSTIC UNI LEFT W OR WO CAD (12/17/2024 2:17 PM CDT) Anatomical Region Laterality Modality Breast Left Mammography Ramsey Harrington MD MAMMO ORDERABLES Final Result from Last 3 Months Insurance OPTIONS PPO [id number] OPTIONS PPO [id number] Advance Directives For more information, please contact: [phone] Documents on File Type Date Recorded Patient Supply Controller Expl anation Authorization to Represent 06/29/2021 11:19 AM Fax Certificate of medical necessity- breast prosthesis Care Teams Wireline Supervisor Relationship Specialty Start Date End Date Robby Doyle MD [address] [place] [address] PCP - General Internal Medicine 07/20/16
[2025-02-26 10:47] LABS: Add Urine Microscopic? NO; Appearance Urine Clear (Clear); Glucose Urine UA Negative (Negative); Leukocyte Esterase Ur Negative LEU/UL (Negative); Nitrate Urine Negative (Negative); Specific Grav Ur 1.019 (1.001-1.035)
[2025-02-26 10:55] LABS: Hemoglobin A1C 5.6 % (<5.7)
[2025-02-26 11:07] LABS: Alanine Aminotransferase 18 U/L (6-35); Albumin Level 4.0 g/dL (3.5-5.1); Alkaline Phosphatase 93 U/L (38-126); Anion Gap 4 mmol/L (4-12); Aspartate Amino Transferase 31 U/L (14-36); Bilirubin,Total 1.2 mg/dL (0.2-1.3); Blood Urea Nitrogen 21 mg/dL (7-17); Calcium 9.6 mg/dL (8.4-10.2); Carbon Dioxide 26 mmol/L (22-30); Chloride 106 mmol/L (98-107); Cholesterol 200 mg/dL (0-200); Estimated Glomerular Filt Rate > 60; Glucose 93 mg/dL (65-110); HDL Direct 76 mg/dL; Potassium 4.1 mmol/L (3.4-5.0); Sodium 136 mmol/L (137-145); Total Protein 6.7 g/dL (6.3-8.2); Triglycerides 88 mg/dL (<150)
[2025-02-26 11:20] LABS: Free T4 Free Thyroxine 1.17 ng/dL (0.78-2.19)
[2025-02-26 11:42] LABS: Thyroid Stimulating Hormone 0.949 uIU/mL (0.465-4.680)
== END 2025-02-26 10:13 | disposition home or self-care (01) ==
LOC: ANHLAB 10:13
PROVIDERS: PCP Internal Medicine; Visit Provider Internal Medicine
DX: E78.5 Hyperlipidemia, unspecified (principal); I10 Essential (primary) hypertension; R73.03 Prediabetes; E55.9 Vitamin D deficiency, unspecified; Z79.899 Other long term (current) drug therapy; Z13.29 Encounter for screening for other suspected endocrine disorder
CPT/HCPCS: 36415; 80053; 80061; 81003; 82306; 83036; 84439; 84443; 99212; G0463